=== PATIENT | female | born 1945 | race Caucasian/White ===

== ENCOUNTER 2016-04-19 09:30 | Inpatient (IN) | payer OTHER ==
[2016-04-16 10:30] VITALS: BMI 27.3
[~2016-04-19 09:30] MED LIST: BACITRACIN 30 GM TUBE TOPICAL OINTMENT TP ONE; BUPIVACAINE HCL/PF 0.5% (5MG/ML) 10 ML VIAL IJ ONE
--- NOTE | 2016-04-19 10:08 | HP ---
History & Physical Update - History History: No Change - Physical Physical: No Change - Assessment Assessment: No Change - Plan Plan: No Change (Seeing as this is the first time I have met the patient, I introduced myslef and informed the patient that I will be assisting Dr. Tyson during the procedure.)
[2016-04-19] MEDS ORDERED: BACITRACIN 30 GM TUBE TOPICAL OINTMENT ONE (10:42)
[2016-04-19] MEDS ORDERED: THROMBIN (BOVINE) 5,000 UNIT VIAL TP ONE ×2 (10:42→13:07)
[2016-04-19] MEDS ORDERED: MIDAZOLAM HCL 2 MG/2 ML SINGLE DOSE VIAL ONE (11:14)
[2016-04-19] MEDS ORDERED: PROPOFOL 20 ML ONE (11:21)
[2016-04-19] MEDS ORDERED: ROCURONIUM BROMIDE 50 MG/5 ML VIAL ONE (11:21)
[2016-04-19] MEDS ORDERED: ceFAZolin SODIUM 1 GM VIAL IVPB ONE (11:30)
[2016-04-19] MEDS ORDERED: ePHEDrine SULFATE 50 MG/1 ML AMPULE ONE (11:44)
[2016-04-19] MEDS ORDERED: ceFAZolin SODIUM 1 GM VIAL ONE (11:57)
[2016-04-19] MEDS ORDERED: ONDANSETRON 4 MG/2 ML VIAL ONE (11:57)
[2016-04-19] MEDS ORDERED: LIDOCAINE HCL/PF 2% SDV 5ML VIAL ONE (11:57)
[2016-04-19] MEDS ORDERED: LABETALOL HCL 5 MG/1 ML (100MG/20 ML VIAL) ONE (11:57)
[2016-04-19] MEDS ORDERED: DEXAMETHASONE SOD PHOSPHATE 4 MG/1 ML VIAL ONE (11:57)
[2016-04-19] MEDS ORDERED: BUPIVACAINE HCL/PF 0.5% (5MG/ML) 10 ML VIAL IJ ONE (13:07)
[2016-04-19] MEDS ORDERED: BACITRACIN 50,000 UNITS VIAL TP ONE (13:07)
[2016-04-19] MEDS ORDERED: BACITRACIN 30 GM TUBE TOPICAL OINTMENT TP ONE (13:30)
[2016-04-19] MEDS ORDERED: ONDANSETRON 4 MG/2 ML VIAL IVPB PRN (13:37)
[2016-04-19] MEDS ORDERED: BISACODYL 10 MG SUPP.RECT RC PRN (13:37)
[2016-04-19] MEDS ORDERED: ACETAMINOPHEN 325 MG TABLET (FP) PO PRN (13:37)
--- NOTE | 2016-04-19 13:37 | OP ---
Operative Note - Note: Operative Date: 04/19/16 Pre-Operative Diagnosis: spinal stenosis, radiculopathy Operation: B L4 and L5 laminectomies, partial B L3 and S1 laminectomies; medial fecetectomies L3-4, L4-5, L5-S1; foramenotomies L3-4, L4-5, L5-S1, microdissection, autologous bone graft harvest, posterolateral bone graft L4-5 Findings: Stenosis, sensitive roots B; L4-5 hypermobility Post-Operative Diagnosis: Same as Pre-op Surgeon: Michael Tyson Storage Consultant: Maco Garcia Anesthesiologist/OIL WELL SERVICE OPERATOR HELPER: Sil Covarrubias MD Anesthesia: General Specimens Removed: ligament and bone Estimated Blood Loss (mls): 25
[2016-04-19] MEDS ORDERED: D5-1/2NS+20 MEQ KCL - 1,000 ML IV SCH (13:45)
--- NOTE | 2016-04-19 14:01 | SURG ---
Surgery Machine Heddle Cleaner Note Machine Heddle Cleaner: Maco Garcia PA-C Date of Service: 04/19/16 Diagnosis: spinal stenosis, radiculopathy Procedure: Bilateral L4 & L5 laminectomies, partial bilateral L3 & S1 laminectomies; medial fecetectomies L3-4, L4-5, L5-S1; foramenotomies L3-4, L4-5, L5-S1, microdissection, autologous bone graft harvest, posterolateral bone graft L4-5 I was present for the entirety of the operative procedure. For further detail, please refer to operative report. Visit type - Case Type Case Type: Scheduled Admission - New patient This patient is new to me today: Yes Date on this admission: 04/19/16
[2016-04-19] MEDS ORDERED: HYDROmorphone *PCA* 10MG/50ML DISP.SYRIN PCA ONE ×2 (14:11→14:32)
--- NOTE | 2016-04-19 14:14 | PN ---
Progress Note (short form) - Note Progress Note: NEUROSURGERY In PACU AF, VSS, O2 sat 100% A/A/Ox3 Dressing intact Motor at least 4+ B LE Sensation- intact LT Labs pending Intra-op findings d/w patient's family All questions answered TOWER SUPERVISOR for pain
[2016-04-19] MEDS ORDERED: DEXAMETHASONE SOD PHOSPHATE 4 MG/1 ML VIAL IVPUSH PRN (14:16)
[2016-04-19] MEDS ORDERED: PROMETHAZINE HCL 25 MG/1 ML VIAL IVPB PRN (14:16)
[2016-04-19] MEDS ORDERED: LACTATED RINGERS SOLUTION 1,000 ML IV SCH (14:30)
[2016-04-19 14:47] LABS: MCHC 34.1 g/dl (32.0-36.0); MEAN CELL VOLUME 90.7 fl (80-96); MEAN PLT VOLUME 6.2 fl (7.5-11.1); PLATELET COUNT 194 K/MM3 (134-434); RDW 13.1 % (11.6-15.6); WHITE BLOOD COUNT 5.3 K/mm3 (4.0-10.0)
[2016-04-19 15:07] LABS: CALCIUM 8.9 mg/dL (8.5-10.1); CREATININE 0.9 mg/dL (0.55-1.02)
--- NOTE | 2016-04-19 17:06 | SPA.POSTOP ---
- POST-OP NOTE POD #0 No acute events since surgical procedure per RN notes. Patient transferred to floor without incident. Resting comfortably. States she is pain free. She has a RESIDENTIAL SUBSTANCE ABUSE COUNSELOR at bedside. Denies n/v/f/c, CP or SOB. Last Vital Signs Temp Pulse Resp BP Pulse Ox 98.3 F 66 16 143/62 100 04/19/16 13:56 04/19/16 16:10 04/19/16 16:10 04/19/16 16:10 04/19/16 16:10 PE General: No acute distress. Pulm: Clear to auscultation bilat anteriorly Cor: RRR Abd: Soft. Non-tender. No distention Back: Mild staining to superior pole of incision. No palpable hematoma. Neuro: Moving LE b/l. GMNI. LE: Soft, non-tender bilat. SCD's bilat. Problem List - Problems (1) Spinal stenosis Assessment/Plan: s/p B/l L4 & L5 lami, partial b/l L3 & S1 laminectomies; medial facetectomies L3 -4, L4-5, L5-S1; foramenotomies L3-4, L4-5, L5-S1, microdissection, autologous bone graft harvest, posterolateral bone graft L4-5 Doing well. Pain management via RESIDENTIAL SUBSTANCE ABUSE COUNSELOR Clear liquid diet OOB to chair in AM Code(s): M48.00 - SPINAL STENOSIS, SITE UNSPECIFIED (2) Lumbar radiculopathy, chronic Code(s): M54.16 - RADICULOPATHY, LUMBAR REGION Visit type - Case Type Case Type: Scheduled Admission - New patient This patient is new to me today: Yes Date on this admission: 04/19/16
[2016-04-19] MEDS: D5-1/2NS+20 MEQ KCL - 1,000 ML IV SCH (17:57)
[2016-04-19] MEDS: diazePAM 5 MG TABLET PO SCH ×2 (17:58→21:59)
[2016-04-19] MEDS: DOCUSATE SODIUM 100 MG CAPSULE (FP) PO SCH ×2 (17:58→21:59)
[2016-04-19] MEDS: HYDROmorphone *PCA* 10MG/50ML DISP.SYRIN PCA SCH (18:19)
[2016-04-19] MEDS: CEFAZOLIN 1 GM/D5W 50 ML IVPB SCH (19:00)
[2016-04-19] MEDS ORDERED: CARVEDILOL 6.25 MG TABLET (FP) PO ONE (19:45)
[2016-04-19] MEDS ORDERED: LOSARTAN POTASSIUM 50 MG TABLET (FP) PO ONE (19:45)
[2016-04-19] MEDS: ATORVASTATIN CA 40 MG TABLET (FP) PO SCH (21:59)
[2016-04-19] MEDS ORDERED: PATIENT'S OWN MEDICATION (NON-FORMULARY) (Icosapent Ethyl [Vascepa] 1 GM) PO SCH (22:00)
[2016-04-19] MEDS: CARVEDILOL 6.25 MG TABLET (FP) PO SCH (22:00)
[2016-04-19] MEDS: LOSARTAN POTASSIUM 50 MG TABLET (FP) PO SCH (22:00)
[2016-04-20] MEDS: CEFAZOLIN 1 GM/D5W 50 ML IVPB SCH ×2 (01:58→10:32)
[2016-04-20] MEDS: D5-1/2NS+20 MEQ KCL - 1,000 ML IV SCH ×2 (02:59→15:07)
[2016-04-20] MEDS: DOCUSATE SODIUM 100 MG CAPSULE (FP) PO SCH ×3 (05:56→22:42)
[2016-04-20] MEDS: diazePAM 5 MG TABLET PO SCH ×3 (05:56→22:43)
--- NOTE | 2016-04-20 07:54 | PN ---
Progress Note (short form) - Note Progress Note: NEUROSURGERY POD#1 AF, VSS BP higher last night; normalized after given PM doses of regular BP emds A/A/Ox3 Dressing with some serosangrenous drainage - changed Motor at least 4+ B LE Sensation- intact LT Labs OK Intra-op findings d/w patient All questions answered Cont TRAFFIC WORKER for pain Observe wound Complete IV abx Rehab
[2016-04-20] MEDS: CARVEDILOL 6.25 MG TABLET (FP) PO SCH ×2 (10:32→22:42)
--- NOTE | 2016-04-20 11:06 | OP ---
DATE OF OPERATION: 04/19/2016 PREOPERATIVE DIAGNOSES: 1. Lumbar spinal stenosis L3-L4 greater than L4-L5. 2. Lower back pain, bilateral lumbar radiculopathy. 3. L4-L5 disc herniation with mild segmental instability. POSTOPERATIVE DIAGNOSES: 1. Lumbar spinal stenosis L3-L4 greater than L4-L5. 2. Lower back pain, bilateral lumbar radiculopathy. 3. L4-L5 disc herniation with mild segmental instability. ATTENDING SURGEON: Michael Tyson MD TANK CALIBRATOR: ROM Garza ANESTHESIA: General endotracheal. ANESTHESIOLOGIST: Sil Covarrubias MD ESTIMATED BLOOD LOSS: 25 mL. PROCEDURES: 1. Bilateral L4 and L5 laminectomies and partial bilateral L3 and S1 laminectomies for spinal canal and lateral recessed decompression including decompression of the thecal sac, bilateral L3, L4, L5, and S1 nerve roots (69639, [id number], [id number], and [id number]). 2. Evergreen autologous lamina and spinous process bone and processing with bone mill (52403). 3. Posterolateral fusion at L4-L5 with autologous morselized bone graft and bone dust (50424). 4. Microsurgical dissection with operating microscope and microsurgical techniques ([id number]). INDICATIONS: The patient is a 71-year-old female with intractable lower back pain, bilateral lumbar radiculopathy. Because of the continued intractable symptoms and failure of conservative treatment, she is consented for lumbar decompression. She has marked stenosis at L4-L5, mild stenosis at L3-L4 and L5-S1. The risks of the procedure include, but are not limited to, bleeding, infection, dural tear with CSF leak, neurological injury, increased thromboembolic risks, and other risks of general anesthesia. The patient understands the indications for procedure, the procedure in detail, risks and benefits, and alternatives for treatment of her lumbar condition, and wished to proceed. No guarantees were given for a favorable outcome. PROCEDURE IN DETAIL: After the patient was taken to the operating room, she was placed in supine position. After general anesthesia was induced and appropriate monitoring lines were placed, she was turned into a prone position on a Edy frame. She has palpable pulses at both dorsalis pedis. All pressure points were checked and padded, and neck was placed in sliding flexed position. Posterior lumbar region was cleaned with alcohol and prepped with Betadine, and localization was obtained with the spinal needle in place. After position was verified, an approximately 3.5-inch incision was made from the midline from L3 to L5. Subperiosteal dissection was carried out bilaterally with periosteal elevator and monopolar electrocautery. Two self-retaining retractors were inserted. At this point, another localizing x-ray was obtained with the clamp at the bottom at the L4-L5 interspinous space even prior to any bone removal and ligament removal, the patient was found to be hypermobile at the L4-L5 level. After position was verified, supraspinous interspinal ligament was removed at L3-L4, L4-L5, and L5-S1. The spinous process at L4 and L5 as well as partial at L3 were removed with a Leksell rongeur. Laminectomy was also carried out with Leksell rongeur, and bone was morselized with a bone mill. Complete laminectomy at L4 and L5 was carried out bilaterally and partially at bilateral L3 and S1 to decompress the thecal sac. There was significant pressure at L4-L5 because of the segmental hypomobility as well as extremely thickened ligamentum flavum. This was dissected free with the angled curette and resected with the Kerrison rongeur. This portion of the procedure was performed with the use of the operating microscope for both illumination and magnification. Microsurgical techniques were utilizing. Medial facetectomy was carried out to decompress the lateral recess thoroughly at L3-L4, L4-L5, and L5-S1. Foraminotomy was also carried out with angled curette and Kerrison rongeur bilaterally to decompress L3, L4, L5, and S1 nerve roots. The dura was moist and there was antibiotic irrigation, which was given intermittently throughout the procedure. After decompression was completed, the thecal sac was pulsating nicely with CSF pulsation. Wounds were irrigated with copious amounts of antibiotic interrogation. Surgicel was layered over the epidural space as an adhesion barrier. Posterolateral surface of the spine at L4 and L5 was decorticated with high-speed pneumatic drill and pack was previously harvested with autologous lamina and spinous process bone graft and bone dust. At this point, 10 mL of 0.5% Marcaine was injected into the paraspinal muscles bilaterally. Adequate hemostasis was obtained with bipolar electrocautery. Dorsal lumbar musculature was approximated with 0 Vicryl suture, and dorsal lumbar fascia was closed with 0 Vicryl sutures. The subcutaneous fascia was closed with 3-0 Vicryl suture, and skin was closed with 4-0 Vicryl running subcuticular sutures. Steri-Strips and sterile occlusive dressing were applied. The patient tolerated the procedure well and was turned back to the supine position, moving bilateral lower extremities well. The Valsalva maneuver was performed prior to the closure, and there was no CSF leak. The OR time-out procedure was followed. All needle and lap counts were correct. The patient received 1 dose of 1 g of Ancef prior to the incision. The family was updated as to the intraoperative findings, and the patient was examined in the recovery room with a stable neurological examination. Matthieu PIÑA/[id number]
--- NOTE | 2016-04-20 13:32 | PN ---
Progress Note (short form) - Note Progress Note: Anesthesia postop note 71 y/o F, s/p GA for lumbar laminectomy, dilaudid HAND GLASS CUTTER for pain management POD#1, vss, aaox3, pain well controlled with HAND GLASS CUTTER. Will continue HAND GLASS CUTTER until tomorrow. No anesthesia complications.
[2016-04-20] MEDS ORDERED: MAGNESIUM HYDROX 2400MG/30ML ORAL SUSPENSION 30 ML CUP PO PRN (15:20)
--- NOTE | 2016-04-20 15:20 | HP ---
Admitting History and Physical - Primary Care Physician PCP: Claudio Pat - Admission Chief Complaint: S/P L3/L4 LAMINECTOMY POD #1 History of Present Illness: INTRACTABLE BACK PAIN WITH NEUROPATHY DOWN BOTH LEGS, HERE FOR LAMINECTOMY L3 AND L4. HISTORY HYPERTENSION, LIPIDEMIA, BORDERLINE DIABETES History Source: Patient - Past Medical History Cardiovascular: Yes: HTN ...: No - Smoking History Smoking history: Never smoked - Alcohol/Substance Use Hx Alcohol Use: No Home Medications - Allergies Allergies/Adverse Reactions: Allergies Allergy/AdvReac Type Severity Reaction Status Date / Time No Known Allergies Allergy Verified 04/16/16 10:35 - Home Medications Home Medications: Ambulatory Orders Aspirin [Lo-Dose Aspirin EC] 81 mg PO DAILY 04/16/16 Losartan Potassium 50 mg PO HS 04/16/16 Atorvastatin Ca [Lipitor] 40 mg PO HS 04/19/16 Carvedilol [Coreg -] 6.25 mg PO BID 04/19/16 Cholecalciferol (Vitamin D3) [Vitamin D3] 2,000 unit PO DAILY 04/19/16 Icosapent Ethyl [Vascepa] 1 gm PO BID 04/19/16 Review of Systems - Review of Systems Constitutional: reports: Weakness Eyes: reports: No Symptoms HENT: reports: No Symptoms Neck: reports: No Symptoms Cardiovascular: reports: No Symptoms Respiratory: reports: No Symptoms Gastrointestinal: reports: No Symptoms Genitourinary: reports: No Symptoms Breasts: reports: No Symptoms Reported Musculoskeletal: reports: Back Pain, Muscle Weakness Integumentary: reports: No Symptoms Neurological: reports: Pre-Existing Deficit Endocrine: reports: No Symptoms Hematology/Lymphatic: reports: No Symptoms Physical Examination Vital Signs: Vital Signs Temperature 99.0 F 04/20/16 09:00 Pulse Rate 83 04/20/16 09:00 Respiratory Rate 20 04/20/16 09:00 Blood Pressure 116/47 04/20/16 09:00 O2 Sat by Pulse Oximetry (%) 95 04/20/16 09:00 Findings/Remarks: PATIENT WAS ABLE TO HAVE PHYSICAL THERAPY TODAY, OOB TO CHAIR Constitutional: Yes: Mild Distress Eyes: Yes: WNL HENT: Yes: WNL Neck: Yes: WNL Cardiovascular: Yes: WNL Respiratory: Yes: WNL Gastrointestinal: Yes: WNL Renal/: Yes: WNL Musculoskeletal: Yes: Back Pain Extremities: Yes: WNL Edema: No Peripheral Pulses WNL: Yes Integumentary: Yes: WNL Wound/Incision: Yes: Clean/Dry Neurological: Yes: Other ...Motor Strength: LLE, RLE Psychiatric: Yes: WNL Labs: CBC, BMP 04/19/16 14:20 04/19/16 14:20 Problem List - Problems (1) Lumbar radiculopathy, chronic Code(s): M54.16 - RADICULOPATHY, LUMBAR REGION (2) Spinal stenosis Code(s): M48.00 - SPINAL STENOSIS, SITE UNSPECIFIED (3) Hypertension Code(s): I10 - ESSENTIAL (PRIMARY) HYPERTENSION (4) Lipidemia Code(s): E78.5 - HYPERLIPIDEMIA, UNSPECIFIED Assessment/Plan POD #1 INCENTIVE SPIROMETRY OOB TO CHAIR MONITOR LABS AND VITAL SIGNS STOOL SOFTENERS PRN [facility]
[2016-04-20] MEDS: HYDROmorphone *PCA* 10MG/50ML DISP.SYRIN PCA SCH (15:21)
[2016-04-20] MEDS: LOSARTAN POTASSIUM 50 MG TABLET (FP) PO SCH (22:43)
[2016-04-20] MEDS: ATORVASTATIN CA 40 MG TABLET (FP) PO SCH (22:43)
[2016-04-21] MEDS: DOCUSATE SODIUM 100 MG CAPSULE (FP) PO SCH ×3 (06:23→22:37)
[2016-04-21] MEDS: diazePAM 5 MG TABLET PO SCH ×3 (06:23→22:39)
--- NOTE | 2016-04-21 08:50 | PN ---
Progress Note, Physician Chief Complaint: AWAKE ALERT EATING BREAKFAST MILD DISTRESS WITH PAIN NO BM SINCE ADMITTED - Current Medication List Current Medications: Active Medications Acetaminophen (Tylenol -) 650 mg PO Q6H PRN PRN Reason: FEVER Atorvastatin Calcium (Lipitor -) 40 mg PO [facility] Last Admin: 04/20/16 22:43 Dose: 40 mg Bisacodyl (Dulcolax Suppository -) 10 mg RC DAILY PRN PRN Reason: CONSTIPATION Carvedilol (Coreg -) 6.25 mg PO BID [facility] Last Admin: 04/20/16 22:42 Dose: 6.25 mg Diazepam (Valium -) 5 mg PO Q8H [facility] Last Admin: 04/21/16 06:23 Dose: 5 mg Docusate Sodium (Colace -) 100 mg PO TID [facility] Last Admin: 04/21/16 06:23 Dose: 100 mg Hydromorphone HCl (Dilaudid Data Storage Specialist -) 10 mg DENTAL LAB TECHNICIAN DENTAL LAB TECHNICIAN [facility] PRN Reason: Protocol Stop: 04/26/16 14:17 Last Admin: 04/20/16 15:21 Dose: Not Given Potassium Chloride/Dextrose/Sod Cl (D5-1/2ns+20 Meq Kcl -) 1,000 mls @ 42 mls/ hr IV ASDIR [facility] Losartan Potassium (Cozaar -) 50 mg PO [facility] Last Admin: 04/20/16 22:43 Dose: 50 mg Magnesium Hydroxide (Milk Of Magnesia -) 30 ml PO DAILY PRN PRN Reason: CONSTIPATION Non-Formulary Medication (Icosapent Ethyl [Vascepa]) 1 gm PO BID [facility] Ondansetron HCl (Zofran Injection) 4 mg IVPB Q6H PRN PRN Reason: NAUSEA AND/OR VOMITING Promethazine HCl (Phenergan Injection -) 12.5 mg IVPB Q6H PRN PRN Reason: NAUSEA AND/OR VOMITING - Objective Vital Signs: Vital Signs Temperature 98.1 F 04/21/16 06:39 Pulse Rate 87 04/21/16 06:12 Respiratory Rate 20 04/21/16 06:12 Blood Pressure 153/72 04/21/16 06:12 O2 Sat by Pulse Oximetry (%) 96 04/20/16 21:00 Constitutional: Yes: Mild Distress Eyes: Yes: WNL HENT: Yes: WNL Neck: Yes: WNL Cardiovascular: Yes: WNL Respiratory: Yes: WNL Gastrointestinal: Yes: WNL Genitourinary: Yes: WNL Musculoskeletal: Yes: Back Pain, Muscle Weakness Extremities: Yes: Other Edema: No Peripheral Pulses WNL: Yes Integumentary: Yes: WNL Wound/Incision: Yes: Clean/Dry Neurological: Yes: Unsteady Gait ...Motor Strength: LLE, RLE Psychiatric: Yes: WNL Labs: CBC, BMP 04/19/16 14:20 04/19/16 14:20 Problem List - Problems (1) Lumbar radiculopathy, chronic Code(s): M54.16 - RADICULOPATHY, LUMBAR REGION (2) Spinal stenosis Code(s): M48.00 - SPINAL STENOSIS, SITE UNSPECIFIED (3) Hypertension Code(s): I10 - ESSENTIAL (PRIMARY) HYPERTENSION (4) Lipidemia Code(s): E78.5 - HYPERLIPIDEMIA, UNSPECIFIED Assessment/Plan POD #2 INCENTIVE SPIROMETRY OOB TO CHAIR MONITOR LABS AND VITAL SIGNS STOOL SOFTENERS PRN [facility]
[2016-04-21] MEDS: CARVEDILOL 6.25 MG TABLET (FP) PO SCH ×2 (09:48→22:37)
--- NOTE | 2016-04-21 10:11 | PN ---
Progress Note (short form) - Note Progress Note: NEUROSURGERY POD#2 Tmax 100, now 98.1, VSS Feels better today No sciatica Incisional pain only Appreciate Dr Pat's input A/A/Ox3 Dressing with minimal drainage Motor at least 4+ B LE Sensation- intact LT Intra-op findings d/w patient All questions answered D/c DIRECTOR REGULATORY AGENCY - po meds Observe wound F/U CBC Rehab
[2016-04-21] MEDS ORDERED: TAPENTADOL HYDROCHLORIDE 50 MG TABLET PO PRN (10:52)
[2016-04-21 11:37] LABS: BASOPHIL 0.3 % (0-2.0); EOSINOPHIL 0.1 % (0-4.5); MCH 31.9 pg (25.7-33.7); MCHC 34.8 g/dl (32.0-36.0); MEAN CELL VOLUME 91.7 fl (80-96); NEUTROPHILS 75.5 % (42.8-82.8); PLATELET COUNT 168 K/MM3 (134-434); RDW 13.5 % (11.6-15.6); WHITE BLOOD COUNT 9.6 K/mm3 (4.0-10.0)
--- NOTE | 2016-04-21 13:52 | PN ---
Progress Note (short form) - Note Progress Note: Anesthesia/Pain Pt seen and examined S:awake Comfortable O: Vital Signs Temperature 98.1 F 04/21/16 09:00 Pulse Rate 83 04/21/16 09:00 Respiratory Rate 17 04/21/16 09:00 Blood Pressure 145/62 04/21/16 09:00 O2 Sat by Pulse Oximetry (%) 97 04/21/16 09:45 CBC, BMP 04/21/16 11:08 04/19/16 14:20 A/P: Current Active Problems Hypertension (Acute) Lipidemia (Acute) Lumbar radiculopathy, chronic (Acute) Spinal stenosis (Acute) s/p laminectomy Doing well post op FLOAT BUILDER stopped PO pain med as needed Continue current care Keven Hernandez MD
[2016-04-21] MEDS: LOSARTAN POTASSIUM 50 MG TABLET (FP) PO SCH (22:37)
[2016-04-21] MEDS: ATORVASTATIN CA 40 MG TABLET (FP) PO SCH (22:37)
[2016-04-22] MEDS: DOCUSATE SODIUM 100 MG CAPSULE (FP) PO SCH ×3 (06:44→21:15)
[2016-04-22] MEDS: diazePAM 5 MG TABLET PO SCH ×3 (06:44→21:15)
--- NOTE | 2016-04-22 07:43 | PN ---
Progress Note (short form) - Note Progress Note: NEUROSURGERY POD#3 AF, VSS Feels better today No sciatica Incisional pain only A/A/Ox3 Dressing with no drainage Motor at least 4+ B LE Sensation- intact LT Intra-op findings d/w patient All questions answered On po meds - Nucynta prn Observe wound Rehab
[2016-04-22] MEDS: CARVEDILOL 6.25 MG TABLET (FP) PO SCH ×2 (10:05→21:15)
--- NOTE | 2016-04-22 14:59 | DS ---
Physical Examination Vital Signs: Vital Signs Temperature 98.2 F 04/22/16 14:00 Pulse Rate 87 04/22/16 14:00 Respiratory Rate 18 04/22/16 14:00 Blood Pressure 122/51 04/22/16 14:00 O2 Sat by Pulse Oximetry (%) 97 04/21/16 21:00 Constitutional: Yes: No Distress Eyes: Yes: WNL HENT: Yes: WNL Neck: Yes: WNL Cardiovascular: Yes: WNL Respiratory: Yes: WNL Gastrointestinal: Yes: WNL Renal/: Yes: WNL Musculoskeletal: Yes: Back Pain, Muscle Weakness Edema: No Peripheral Pulses WNL: Yes Integumentary: Yes: WNL Wound/Incision: Yes: Clean/Dry Neurological: Yes: WNL ...Motor Strength: WNL Psychiatric: Yes: WNL Labs: CBC, BMP 04/21/16 11:08 04/19/16 14:20 Discharge Summary Reason For Visit: LUMBAR STENOSIS, INTERVER DISC DEGENERATION Current Active Problems Hypertension (Acute) Lipidemia (Acute) Lumbar radiculopathy, chronic (Acute) Spinal stenosis (Acute) Procedures: Principal: laminectomy lumbar Other Procedures: xrays/labs Hospital Course: admitted for intractable back and leg pain with neuropathy with weakness. laminectomy performed will send to snf for rehab Condition: Good - Instructions Diet, Activity, Other Instructions: Post-op Lumbar Decompression Diet: Regular Activity: May shower but keep incision line dry. Change dressing afterwards Restrictions: Do not lift anything over 10lbs. Light activity only Additional Instructions: Keep incision line clean and dry. Change dressing daily. Report any chills, fever (100 or greater), any wound drainage, or any neurological changes to Dr. Tyson. Do not drive for two weeks. Initial post-op visit: Call Dr Tyson's office [phone] to be seen in about 1 week after discharge from rehab Disposition: [facility] - Home Medications Comprehensive Discharge Medication List: Ambulatory Orders Aspirin [Lo-Dose Aspirin EC] 81 mg PO DAILY 04/16/16 Losartan Potassium 50 mg PO HS 04/16/16 Atorvastatin Ca [Lipitor] 40 mg PO HS 04/19/16 Carvedilol [Coreg -] 6.25 mg PO BID 04/19/16 Cholecalciferol (Vitamin D3) [Vitamin D3] 2,000 unit PO DAILY 04/19/16 Icosapent Ethyl [Vascepa] 1 gm PO BID 04/19/16
[2016-04-22] MEDS: LOSARTAN POTASSIUM 50 MG TABLET (FP) PO SCH (21:15)
[2016-04-22] MEDS: ATORVASTATIN CA 40 MG TABLET (FP) PO SCH (21:15)
[2016-04-23] MEDS: DOCUSATE SODIUM 100 MG CAPSULE (FP) PO SCH (05:33)
[2016-04-23] MEDS: diazePAM 5 MG TABLET PO SCH (05:33)
--- NOTE | 2016-04-23 07:48 | PN ---
Progress Note (short form) - Note Progress Note: NEUROSURGERY POD#4 Tmax 99.4 now 98.5, AF, VSS Feels better Tolerating diet No sciatica Incisional pain only A/A/Ox3 Dressing with no drainage Mild redness posterior chest/lower back with mild itchiness (?moisture vs abx sensitivity) No sign of infection otherwise Motor at least 4+-5/5 B LE Sensation- intact LT All questions answered On po meds - Nucynta prn Observe wound Rehab
--- NOTE | 2016-04-23 09:24 | PN ---
Progress Note (short form) - Note Progress Note: CHART REVIEWED, PAPER WORK COMPLETED PATIENT EXAMINED, DC TO [facility] Problem List - Problems (1) Lumbar radiculopathy, chronic Code(s): M54.16 - RADICULOPATHY, LUMBAR REGION (2) Spinal stenosis Code(s): M48.00 - SPINAL STENOSIS, SITE UNSPECIFIED (3) Hypertension Code(s): I10 - ESSENTIAL (PRIMARY) HYPERTENSION (4) Lipidemia Code(s): E78.5 - HYPERLIPIDEMIA, UNSPECIFIED
[2016-04-23] MEDS: CARVEDILOL 6.25 MG TABLET (FP) PO SCH (11:18)
[2016-04-23 13:06] VITALS: BP 143/52; PULSE 80; TEMP 98
== END 2016-04-23 11:56 | DRG 460 ==
LOC: JASUSAT 09:30 → UNDOADMIN 09:30 → JSAMEDAYSX 09:30 → EDSTATUS 11:00 → JSAMEDAYSX 13:37 → J8W 17:29
PROVIDERS: ADMIT Neurological Surgery; ATTEND Neurological Surgery
PROC: 01NB0ZZ Release Lumbar Nerve, Open Approach (ICD-10-PCS; 2016-04-19)
PROC: 0SG0071 Fusion of Lumbar Vertebral Joint with Autologous Tissue Substitute, Posterior Approach, Posterior Column, Open Approach (ICD-10-PCS; principal; 2016-04-19 11:00)
DX: M51.16 Intervertebral disc disorders with radiculopathy, lumbar region (principal); M48.06 Spinal stenosis, lumbar region; I10 Essential (primary) hypertension; E78.5 Hyperlipidemia, unspecified; G62.9 Polyneuropathy, unspecified; K59.00 Constipation, unspecified
CPT/HCPCS: 36415; 72100-TC; 80048; 85025; 85027; 86850; 86900; 86901; 94760; 97116-GP; 97161-GP

== ENCOUNTER 2016-06-09 16:46 | Inpatient (IN) | payer OTHER ==
--- NOTE | 2016-06-09 17:34 | PDOC ---
History of Present Illness - General History Source: Patient Exam Limitations: No Limitations - History of Present Illness Initial Comments: 06/09/16 17:35 The patient is a 71-year-old woman, accompanied by family, with a significant past medical history of hypertension, hypercholesterolemia, borderline diabetes , chronic lumbar radiculopathy status post recent laminectomy of L3-L4, performed by Neurosurgeon, Dr. Michael Tyson who presents to the emergency department for further evaluation of altered mental status.As per patient's family, the patient was recently at [facility] for rehabilitation of her recent procedure. As per patient's family, at baseline, the patient is typically talkative. However, the patient has a known urinary tract infection and was noted to have an altered mental state, as she is not much verbal. No fever, chills, cough, shortness of breath, abdominal pain, nausea, vomiting. <Niyah Ling - Last Filed: 06/09/16 18:37> <Maria E Jacob - Last Filed: 06/09/16 23:12> - General Chief Complaint: Urinary Problem Stated Complaint: PCP SENT/URINARY PROBLEM Time Seen by Provider: 06/09/16 17:16 Past History <Niyah Ling - Last Filed: 06/09/16 18:37> - Past Medical History Anemia: No Asthma: No Cancer: No Cardiac Disorders: No CVA: No COPD: No CHF: No Dementia: No Diabetes: Yes ("BORDERLINE, NO MEDICATIONS.") GI Disorders: No Disorders: No HTN: Yes Hypercholesterolemia: Yes Liver Disease: No Seizures: No Thyroid Disease: No - Psycho/Social/Smoking Cessation Hx Anxiety: No Suicidal Ideation: No Smoking History: Never smoked Hx Alcohol Use: No Drug/Substance Use Hx: No Substance Use Type: None Hx Substance Use Treatment: No <Maria E Jacob - Last Filed: 06/09/16 23:12> - Past Medical History Allergies/Adverse Reactions: Allergies Allergy/AdvReac Type Severity Reaction Status Date / Time No Known Allergies Allergy Verified 06/09/16 16:54 Home Medications: Ambulatory Orders Aspirin [Lo-Dose Aspirin EC] 81 mg PO DAILY 04/16/16 Losartan Potassium 50 mg PO HS 04/16/16 Atorvastatin Ca [Lipitor] 40 mg PO HS 04/19/16 Carvedilol [Coreg -] 6.25 mg PO BID 04/19/16 Cholecalciferol (Vitamin D3) [Vitamin D3] 2,000 unit PO DAILY 04/19/16 Review of Systems - Review of Systems Able to Perform ROS?: No <Niyah Ling - Last Filed: 06/09/16 18:37> *Physical Exam - Vital Signs Last Vital Signs Temp Pulse Resp BP Pulse Ox 97.8 F 85 20 151/74 97 06/09/16 16:50 06/09/16 16:50 06/09/16 16:50 06/09/16 16:50 06/09/16 16:50 - Physical Exam Comments: 06/09/16 17:36 GENERAL: Awake, alert. Confused. Answers most questions. HEAD: No signs of trauma EYES: PERRLA, EOMI, sclera anicteric, conjunctiva clear ENT: Auricles normal inspection, hearing grossly normal, nares patent, oropharynx clear without exudates. Moist mucosa NECK: Normal ROM, supple, no lymphadenopathy, JVD, or masses LUNGS: Breath sounds equal, clear to auscultation bilaterally. No wheezes, and no crackles HEART: Regular rate and rhythm, normal S1 and S2, no murmurs, rubs or gallops ABDOMEN: Soft, mild bladder distention. Normoactive bowel sounds. No rebound. No masses EXTREMITIES: Normal range of motion, no edema. No clubbing or cyanosis. No cords, erythema, or tenderness NEUROLOGICAL: Limited by altered mental status. <Niyah Ling - Last Filed: 06/09/16 18:37> - Vital Signs Last Vital Signs Temp Pulse Resp BP Pulse Ox 97.8 F 85 20 151/74 97 06/09/16 16:50 06/09/16 16:50 06/09/16 16:50 06/09/16 16:50 06/09/16 16:50 <Maria E Jacob - Last Filed: 06/09/16 23:12> ED Treatment Course - LABORATORY CBC & Chemistry Diagram: 06/09/16 17:45 06/09/16 17:45 <Niyah Ling - Last Filed: 06/09/16 18:37> - LABORATORY CBC & Chemistry Diagram: 06/09/16 17:45 06/09/16 17:45 <Maria E Jacob - Last Filed: 06/09/16 23:12> Medical Decision Making - Medical Decision Making 06/09/16 17:[address] Claudio Pat. 06/09/16 17:[address] Claudio Pat. <Niyah Ling - Last Filed: 06/09/16 18:37> - Medical Decision Making Case d/w Dr. Pat. Patient was being treated with cipro for UTI at rehab. She was signed out AMA by family earlier today because they were not satisfied with the facility overall, however, they stated that she was unsafe to go home, as she lives alone, and is extremely confused. She is clearly altered in the ED- possibly due to a UTI with resistant organism, possibly delirium due to change in environment (). Unclear. CTH, CXR, and labs in ED without any significant finding to explain the AMS. At this point, she is barely answering questions in the ED, appears paranoid and altered (not her baseline per family) . She is not a safe discharge home, and will need further evaluation to determine the reason for her AMS. <Maria E Jacob - Last Filed: 06/09/16 23:12> *DC/Admit/Observation/Transfer - Attestations Scribe Attestion: 06/09/16 17:37 Documentation prepared by Niyah Ling, acting as medical staff assistant for Maria E Jacob MD. <Niyah Ling - Last Filed: 06/09/16 18:37> - Discharge Dispostion Admit: Yes <Maria E Jacob - Last Filed: 06/09/16 23:12> Diagnosis at time of Disposition: Altered mental status Qualifiers: Altered mental status type: unspecified Qualified Code(s): R41.82 - Altered mental status, unspecified - Discharge Dispostion Condition at time of disposition: Stable
[2016-06-09 18:10] LABS: BASOPHIL 0.9 % (0-2.0); EOSINOPHIL 1.6 % (0-4.5); MCH 31.3 pg (25.7-33.7); MCHC 34.4 g/dl (32.0-36.0); MEAN CELL VOLUME 91.2 fl (80-96); MEAN PLT VOLUME 7.1 fl (7.5-11.1); NEUTROPHILS 60.6 % (42.8-82.8); PLATELET COUNT 249 K/MM3 (134-434); RDW 13.7 % (11.6-15.6); WHITE BLOOD COUNT 8.2 K/mm3 (4.0-10.0)
[2016-06-09 18:21] LABS: URINE APPEARANCE CLEAR; URINE BILIRUBIN NEGATIVE (NEGATIVE); URINE BLOOD NEGATIVE (NEGATIVE); URINE COLOR LTYELLOW; URINE GLUCOSE (UA) 1+ (NEGATIVE); URINE KETONE NEGATIVE (NEGATIVE); URINE LEUK ESTERASE NEGATIVE (NEGATIVE); URINE NITRITE NEGATIVE (NEGATIVE); URINE PROTEIN NEGATIVE (NEGATIVE); URINE UROBILINOGEN NEGATIVE E.U./dl (0.2-1.0)
[2016-06-09 18:33] LABS: ALBUMIN 3.8 g/dl (3.4-5.0); ALK PHOS 34 U/L (45-117); ANION GAP 11 (8-16); BILIRUBIN,TOTAL 1.2 mg/dL (0.2-1.0); CALCIUM 9.5 mg/dL (8.5-10.1); CO2 29 mmol/L (21-32); CREATININE 0.9 mg/dL (0.55-1.02); GLUCOSE,RANDOM 229 mg/dL (74-106); SGOT/AST 14 U/L (15-37); SGPT/ALT 22 U/L (12-78); TOT PROT 7.5 g/dl (6.4-8.2)
[2016-06-09] MEDS ORDERED: ACETAMINOPHEN 325 MG TABLET (FP) PO PRN (20:42)
[2016-06-09 21:33] LABS: ARTERIAL BLD GAS O2 SATURATION 97.8 % (90-98.9); ARTERIAL BLOOD GAS BASE EXCESS 1.9 meq/l (-2-2); ARTERIAL BLOOD GAS HCO3 25.6 meq/L (22-26); ARTERIAL BLOOD GAS pH 7.44 (7.35-7.45)
[2016-06-09 21:34] LABS: ALLENS TEST POSITIVE; ART PUNCT SITE RIGHT BRACHIAL; LPM/O2% 21%; PT. ON O2? NO; TYPE OF O2 ROOM AIR
[2016-06-09 21:35] LABS: ARTERIAL BLOOD GAS PO2 90.3 mmHg (70-100)
[2016-06-09] MEDS ORDERED: INSULIN SLIDING SCALE (NOVOLOG) 1 VIAL SQ SCH (22:00)
[2016-06-09] MEDS: CARVEDILOL 6.25 MG TABLET (FP) PO SCH (22:07)
[2016-06-09] MEDS: LOSARTAN POTASSIUM 50 MG TABLET (FP) PO SCH (22:07)
[2016-06-09] MEDS: SODIUM CHLORIDE 0.45%/POT 1,000 ML IV SCH (22:07)
[2016-06-09] MEDS: ATORVASTATIN CA 40 MG TABLET (FP) PO SCH (22:07)
[2016-06-09] MEDS: HEPARIN NA (PORCINE) 5,000 UNITS/ML 1ML VIAL SQ SCH (22:08)
[2016-06-10 02:41] VITALS: BMI 26.6
[2016-06-10] MEDS: CARVEDILOL 6.25 MG TABLET (FP) PO SCH ×2 (09:49→22:06)
[2016-06-10] MEDS: ASPIRIN COATED 81 MG TABLET.EC PO SCH (09:49)
[2016-06-10] MEDS: HEPARIN NA (PORCINE) 5,000 UNITS/ML 1ML VIAL SQ SCH ×2 (09:51→22:07)
[2016-06-10 10:28] LABS: BASOPHIL 1.1 % (0-2.0); MCH 31.1 pg (25.7-33.7); MCHC 33.9 g/dl (32.0-36.0); MEAN PLT VOLUME 6.8 fl (7.5-11.1); NEUTROPHILS 61.1 % (42.8-82.8); PLATELET COUNT 201 K/MM3 (134-434); RDW 13.7 % (11.6-15.6); WHITE BLOOD COUNT 6.2 K/mm3 (4.0-10.0)
[2016-06-10 11:02] LABS: ALBUMIN 3.7 g/dl (3.4-5.0); ANION GAP 10 (8-16); CALCIUM 9.1 mg/dL (8.5-10.1); CO2 29 mmol/L (21-32); CREATININE 0.8 mg/dL (0.55-1.02); GLUCOSE,RANDOM 221 mg/dL (74-106); SGOT/AST 12 U/L (15-37); SGPT/ALT 21 U/L (12-78)
[2016-06-10 11:05] LABS: ALK PHOS 28 U/L (45-117); BILIRUBIN,TOTAL 1.9 mg/dL (0.2-1.0); TOT PROT 7.2 g/dl (6.4-8.2)
[2016-06-10 12:05] LABS: CHOLESTEROL 149 mg/dL (50-200); LDL CHOLESTEROL (ONLY SJRH) 70 mg/dL (5-100)
--- NOTE | 2016-06-10 12:17 | EKG ---
Test Reason : Blood Pressure : / mmHG Vent. Rate : 084 BPM Atrial Rate : 084 BPM P-R Int : 120 ms QRS Dur : 082 ms QT Int : 384 ms P-R-T Axes : 040 -03 002 degrees QTc Int : 453 ms NORMAL SINUS RHYTHM INFERIOR INFARCT , AGE UNDETERMINED ABNORMAL ECG WHEN COMPARED WITH ECG OF 09-JUN-2016 17:41, NO SIGNIFICANT CHANGE WAS FOUND Confirmed by JOSUÉ SAHA MD ([id number]) on 06/10/2016 12:17:19 PM Referred By: FREDDIE VICENTE Confirmed By:JOSUÉ SAHA MD
--- NOTE | 2016-06-10 12:22 | EKG ---
Test Reason : Blood Pressure : / mmHG Vent. Rate : 087 BPM Atrial Rate : 087 BPM P-R Int : 126 ms QRS Dur : 082 ms QT Int : 384 ms P-R-T Axes : 018 000 025 degrees QTc Int : 462 ms NORMAL SINUS RHYTHM NORMAL ECG NO PREVIOUS ECGS AVAILABLE Confirmed by JOSUÉ SAHA MD ([id number]) on 06/10/2016 12:21:40 PM Referred By: Confirmed By:JOSUÉ SAHA MD
[2016-06-10] MEDS: LOSARTAN POTASSIUM 50 MG TABLET (FP) PO SCH ×2 (20:26→22:07)
[2016-06-10] MEDS ORDERED: clonazePAM 0.5 MG TABLET PO ONE (20:30)
[2016-06-10] MEDS: SODIUM CHLORIDE 0.45%/POT 1,000 ML IV SCH (20:45)
--- NOTE | 2016-06-10 21:51 | HP ---
Admitting History and Physical - Primary Care Physician PCP: Claudio Pat - Admission Chief Complaint: ALTERED MENTAL STATUS History of Present Illness: 71 Y/O FEMALE WAS SENT IN TO ED FOR ALTERED MENTAL STATUS, CONFUSION, PARANOIA, ODD BEHAVIOR. PATIENT S/P LAMINECTOMY LUMBAR SPINE AND SENT TO [facility] FOR REHAB. PATIENT HAD ODD BEHAVIOR AND WALKING INTO PATIENTS ROOM WHEN SHE WAS FOUND TO HAVE TRACE LEUKOCYTES IN URINE AND TREATED WITH CIPRO 500MG BID FOR 5 DAYS. THE BEHAVIOR DID NOT CHANGE AND WORSENED. PATIENT BROUGHT TO ED FOR EVAL. CT HEAD NO ACUTE CVA History Source: Patient - Past Medical History Cardiovascular: Yes: HTN - Smoking History Smoking history: Never smoked Have you smoked in the past 12 months: No - Alcohol/Substance Use Hx Alcohol Use: No Home Medications - Allergies Allergies/Adverse Reactions: Allergies Allergy/AdvReac Type Severity Reaction Status Date / Time No Known Allergies Allergy Verified 06/09/16 16:54 - Home Medications Home Medications: Ambulatory Orders Aspirin [Lo-Dose Aspirin EC] 81 mg PO DAILY 04/16/16 Losartan Potassium 50 mg PO HS 04/16/16 Atorvastatin Ca [Lipitor] 40 mg PO HS 04/19/16 Carvedilol [Coreg -] 6.25 mg PO BID 04/19/16 Cholecalciferol (Vitamin D3) [Vitamin D3] 2,000 unit PO DAILY 04/19/16 Review of Systems - Review of Systems Constitutional: reports: Lethargy, Weakness Eyes: reports: No Symptoms HENT: reports: No Symptoms Neck: reports: No Symptoms Cardiovascular: reports: No Symptoms Respiratory: reports: No Symptoms Gastrointestinal: reports: No Symptoms Genitourinary: reports: No Symptoms Musculoskeletal: reports: Muscle Weakness Integumentary: reports: No Symptoms Neurological: reports: Confusion, Unsteady Gait Endocrine: reports: No Symptoms Hematology/Lymphatic: reports: No Symptoms Psychiatric: reports: No Symptoms Physical Examination Vital Signs: Vital Signs Temperature 98.0 F 06/10/16 17:45 Pulse Rate 83 06/10/16 17:45 Respiratory Rate 18 06/10/16 17:45 Blood Pressure 162/72 06/10/16 17:45 O2 Sat by Pulse Oximetry (%) 97 06/10/16 09:00 Constitutional: Yes: Moderate Distress Eyes: Yes: WNL HENT: Yes: WNL Neck: Yes: WNL Cardiovascular: Yes: WNL Respiratory: Yes: WNL Gastrointestinal: Yes: WNL Renal/: Yes: WNL Musculoskeletal: Yes: WNL Extremities: Yes: WNL Edema: No Peripheral Pulses WNL: Yes Integumentary: Yes: WNL Wound/Incision: Yes: Clean/Dry Neurological: Yes: Confusion, Unsteady Gait ...Motor Strength: LLE, RLE Psychiatric: Yes: Agitated, Other Labs: CBC, BMP 06/10/16 09:50 06/10/16 09:50 Problem List - Problems (1) Altered mental status Code(s): R41.82 - ALTERED MENTAL STATUS, UNSPECIFIED Qualifiers: Altered mental status type: unspecified Qualified Code(s): R41.82 - Altered mental status, unspecified (2) Hypertension Code(s): I10 - ESSENTIAL (PRIMARY) HYPERTENSION (3) Lipidemia Code(s): E78.5 - HYPERLIPIDEMIA, UNSPECIFIED (4) Lumbar radiculopathy, chronic Code(s): M54.16 - RADICULOPATHY, LUMBAR REGION (5) Spinal stenosis Code(s): M48.00 - SPINAL STENOSIS, SITE UNSPECIFIED Assessment/Plan URINE AND BLOOD CULTURES PENDING MRI BRAIN R/O CVA CT HEAD NO ACUTE CHANGES PT EVAL LIKELY DELERIUM WITH PARANOA PSYCHIATRY AND NEUROLOGY EVAL
[2016-06-10] MEDS: ATORVASTATIN CA 40 MG TABLET (FP) PO SCH (22:06)
--- NOTE | 2016-06-11 09:21 | DS ---
Physical Examination Vital Signs: Vital Signs Temperature 97.8 F 06/11/16 08:00 Pulse Rate 78 06/11/16 08:00 Respiratory Rate 18 06/11/16 08:00 Blood Pressure 154/88 06/11/16 08:00 O2 Sat by Pulse Oximetry (%) 97 06/10/16 21:00 Findings/Remarks: patient had mri brain yesterday and was reported as normal with no acute changes , she appears better today with less paranoia Constitutional: Yes: Mild Distress Eyes: Yes: WNL HENT: Yes: WNL Neck: Yes: WNL Cardiovascular: Yes: WNL Respiratory: Yes: WNL Gastrointestinal: Yes: WNL Musculoskeletal: Yes: Muscle Weakness Extremities: Yes: WNL Edema: No Peripheral Pulses WNL: Yes Integumentary: Yes: WNL Wound/Incision: Yes: Clean/Dry Neurological: Yes: Confusion, Unsteady Gait, Weakness ...Motor Strength: LLE, RLE Psychiatric: Yes: Other (slighlty better today) Labs: CBC, BMP 06/10/16 09:50 06/10/16 09:50 Discharge Summary Reason For Visit: ALTERED MENTAL STATUS Current Active Problems Altered mental status (Acute) Condition: Stable - Instructions Diet, Activity, Other Instructions: physical therapy and walker for ambulation Referrals: Claudio Pat MD [Primary Care Provider] - Disposition: VNS/HOME HEALTH CARE - Home Medications Comprehensive Discharge Medication List: Ambulatory Orders Aspirin [Lo-Dose Aspirin EC] 81 mg PO DAILY 04/16/16 Losartan Potassium 50 mg PO HS 04/16/16 Atorvastatin Ca [Lipitor] 40 mg PO HS 04/19/16 Carvedilol [Coreg -] 6.25 mg PO BID 04/19/16 Cholecalciferol (Vitamin D3) [Vitamin D3] 2,000 unit PO DAILY 04/19/16
--- NOTE | 2016-06-11 09:37 | PN ---
Progress Note (short form) - Note Progress Note: DISCUSSED WITH DR SALINAS, WILL ORDER MRI LSPINE WITH AND WITHOUT CONTRAST , ESR , CRP R/O SPINAL INFECTION. Problem List - Problems (1) Altered mental status Code(s): R41.82 - ALTERED MENTAL STATUS, UNSPECIFIED Qualifiers: Altered mental status type: unspecified Qualified Code(s): R41.82 - Altered mental status, unspecified (2) Hypertension Code(s): I10 - ESSENTIAL (PRIMARY) HYPERTENSION (3) Lipidemia Code(s): E78.5 - HYPERLIPIDEMIA, UNSPECIFIED (4) Lumbar radiculopathy, chronic Code(s): M54.16 - RADICULOPATHY, LUMBAR REGION (5) Spinal stenosis Code(s): M48.00 - SPINAL STENOSIS, SITE UNSPECIFIED
[2016-06-11] MEDS: ASPIRIN COATED 81 MG TABLET.EC PO SCH (10:23)
[2016-06-11] MEDS: CARVEDILOL 6.25 MG TABLET (FP) PO SCH ×3 (10:23→21:57)
[2016-06-11] MEDS: HEPARIN NA (PORCINE) 5,000 UNITS/ML 1ML VIAL SQ SCH ×2 (10:23→21:59)
[2016-06-11 11:01] LABS: FREE T4 1.11 ng/dl (0.76-1.46)
[2016-06-11 11:21] LABS: THYROID STIMULATING HORMONE 1.04 uIU/ml (0.358-3.74)
[2016-06-11 11:51] LABS: C-REACTIVE PROTEIN < 0.3 MG/DL (0.00-0.3)
--- NOTE | 2016-06-11 15:18 | CONSULT ---
Consult - text type - Consultation Consultation Note: NEUROLOGY CONSULTATION is greatly appreciated: Pt is seen with Dr. Pat who aides in translation. Case discussed in detail. This 71 yo RH woman with h/o HTN, Chol on Carvedilol, atorvastatin, and losartan was evaulated by me las September for Low back pain and Neurogenic claudication. Work up revealed polyradiculopathy on the EMG and severe LS spinal stenosis at L4L5 on the MRI. Patient last seen 11/30/16. She is now s/p LS laminectomy Apr. Chart suggested she was decompressed at L3L4. While in Rehab at [place], she became confused, wandering and paranoid. This recurred when she was discharged to her home and she was evaluated by Dr. Pat who gave Rx for UTI and admitted. Pt continues to note unsteady gait, tending to fall to the right. Continues to require a walker after 1 month of rehab. No bladder incontinence. + Urgency. MRI of brain (reviewed): Moderate, diffuse, atrophy and scattered, periventricular microvascular changes. TAMICA: No evidence of external head trauma. No bruits. Well-healed LS scar. NEURO: Ox [facility]. Remembers me. Mild OMS- difficulty with year. Speech fluent CN II-XII: Normal Motor: Normal strength except mild Right plantar flexion (4/5). Absent AJ's. Toes downgoing. Coord: Normal Sensation: Decreased vibration both feet. Romberg + Gait: Unsteady, wobbling. IMP: 1. Mild underlying OMS 2. Toxic-metabolic encephalopathy possible due to UTI 3. Persistent Lumbosacral polyradiculopathy. Suggest: Check B12, TSH, RPR, ESR, CRP Repeat UA/ C&S Update MRI of the LS spine. Neuro flu as out patient. Continue out patient PT for gait with walker. Thank you very much, Flip Conte MD
--- NOTE | 2016-06-11 15:47 | PN ---
Progress Note (short form) - Note Progress Note: DISCUSSED WITH DR SALINAS, ORDERING ESR AND CRP WITH B12/FOLIC ACID LEVEL. ALSO ADDIN GLSPINE MRI WITH AND WITHOUT CONTRAST TO R/O INFECTION AT OPERATIVE SITE. AFTER MRI WILL DC HOME. MAY NEED NEUROSURGERY F/U FOR BALANCE AND GAIT ABNORMALITY. Problem List - Problems (1) Altered mental status Code(s): R41.82 - ALTERED MENTAL STATUS, UNSPECIFIED Qualifiers: Altered mental status type: unspecified Qualified Code(s): R41.82 - Altered mental status, unspecified (2) Hypertension Code(s): I10 - ESSENTIAL (PRIMARY) HYPERTENSION (3) Lipidemia Code(s): E78.5 - HYPERLIPIDEMIA, UNSPECIFIED (4) Lumbar radiculopathy, chronic Code(s): M54.16 - RADICULOPATHY, LUMBAR REGION (5) Spinal stenosis Code(s): M48.00 - SPINAL STENOSIS, SITE UNSPECIFIED
[2016-06-11] MEDS: LOSARTAN POTASSIUM 50 MG TABLET (FP) PO SCH ×2 (17:54→21:57)
[2016-06-11] MEDS: ATORVASTATIN CA 40 MG TABLET (FP) PO SCH (21:59)
[2016-06-11] MEDS ORDERED: clonazePAM 0.5 MG TABLET PO ONE (22:00)
[2016-06-11 22:24] LABS: URINE APPEARANCE CLEAR; URINE BILIRUBIN NEGATIVE (NEGATIVE); URINE BLOOD NEGATIVE (NEGATIVE); URINE COLOR STRAW; URINE GLUCOSE (UA) NEGATIVE (NEGATIVE); URINE KETONE NEGATIVE (NEGATIVE); URINE LEUK ESTERASE NEGATIVE (NEGATIVE); URINE NITRITE NEGATIVE (NEGATIVE); URINE PROTEIN NEGATIVE (NEGATIVE); URINE UROBILINOGEN NEGATIVE E.U./dl (0.2-1.0)
[2016-06-11] MEDS: SODIUM CHLORIDE 0.45%/POT 1,000 ML IV SCH (23:00)
[2016-06-12 05:41] VITALS: TEMP 97.6
[2016-06-12 08:48] VITALS: BP 144/70; PULSE 80
[2016-06-12] MEDS: CARVEDILOL 6.25 MG TABLET (FP) PO SCH (09:08)
[2016-06-12] MEDS: HEPARIN NA (PORCINE) 5,000 UNITS/ML 1ML VIAL SQ SCH (09:08)
[2016-06-12] MEDS: ASPIRIN COATED 81 MG TABLET.EC PO SCH (09:08)
[2016-06-12] MEDS: SODIUM CHLORIDE 0.45%/POT 1,000 ML IV SCH (09:09)
--- NOTE | 2016-06-12 09:21 | PN ---
Progress Note (short form) - Note Progress Note: i reviewed the mri of lspine with dr nichols who reports the view is good enough although not complete. The mri did not show and infections or acute obvious change. will discharge home follow as outpatient with dr mel hood Problem List - Problems (1) Altered mental status Code(s): R41.82 - ALTERED MENTAL STATUS, UNSPECIFIED Qualifiers: Altered mental status type: unspecified Qualified Code(s): R41.82 - Altered mental status, unspecified (2) Hypertension Code(s): I10 - ESSENTIAL (PRIMARY) HYPERTENSION (3) Lipidemia Code(s): E78.5 - HYPERLIPIDEMIA, UNSPECIFIED (4) Lumbar radiculopathy, chronic Code(s): M54.16 - RADICULOPATHY, LUMBAR REGION (5) Spinal stenosis Code(s): M48.00 - SPINAL STENOSIS, SITE UNSPECIFIED
[2016-06-12] MEDS ORDERED: clonazePAM 0.5 MG TABLET PO ONE (10:00)
== END 2016-06-12 10:51 | disposition home or self-care (01) | DRG 948 ==
LOC: JER 16:46 → JERBED 19:01 → J6S 20:03
PROVIDERS: ADMIT Family Medicine; ATTEND Family Medicine
DX: R41.82 Altered mental status, unspecified (principal); F05 Delirium due to known physiological condition; I10 Essential (primary) hypertension; E78.00 Pure hypercholesterolemia, unspecified; R73.03 Prediabetes; M54.16 Radiculopathy, lumbar region; E78.5 Hyperlipidemia, unspecified; R26.81 Unsteadiness on feet; F22 Delusional disorders
CPT/HCPCS: 36415; 36600; 70450-TC; 70553-TC; 71010-TC; 72158-TC; 80053; 80061; 81003; 82607; 82746; 82803; 83036; 83721; 84439; 84443; 85025; 85651; 86140; 87040; 87086; 93005; 93010; 97116-GP; 97162-PG; 99284-25; A9576; J1644; J3480

== ENCOUNTER 2018-12-28 13:54 | Inpatient (IN) | payer OTHER ==
--- NOTE | 2018-12-28 14:01 | PDOC ---
Rapid Medical Evaluation Time Seen by Provider: 12/28/18 13:59 Medical Evaluation: Allergies Allergy/AdvReac Type Severity Reaction Status Date / Time No Known Allergies Allergy Verified 06/09/16 16:54 12/28/18 13:59 I have performed a brief in-person evaluation of this patient. The patient presents with a chief complaint of: AMS x 2 weeks, "hallucinating and hitting things, getting up in the middle of the night" per daughter. hx of HTN, HLD, lumbar radiculopathy s/p laminectomy PCP Claudio Pat Pertinent physical exam findings: well appearing I have ordered the following: labs, ekg, urine The patient will proceed to the ED for further evaluation. Discharge Disposition - Diagnosis Altered mental status - Discharge Dispostion Condition at time of disposition: Stable - Referrals - Patient Instructions - Post Discharge Activity
--- NOTE | 2018-12-28 14:22 | PDOC ---
History of Present Illness - General Chief Complaint: Altered Mental Status Stated Complaint: Sent by PMD Time Seen by Provider: 12/28/18 13:59 History Source: Patient, Family (sister Carmen Braden [phone]) Exam Limitations: No Limitations - History of Present Illness Initial Comments: 12/28/18 14:21 Veronica Kat is a 73yF w PMHx HTN HLD chronic lumbar radiculopathy presenting w altered mental status. Has visual and auditory hallucinations for last month, acutely worsening over past week. Per family, pt would be talking to imaginary brother and reaching for things in distance. Associated pyuria. 12/17 diagnosed w UTI at PCP office, prescribed ciprofloxacin and olanzapine. Pt took only 1/2 prescribed daily dose of cipro, did not finish antibiotic course. Lives at home alone, denies fall or head trauma. Denies fever, nausea/vomiting, cough, SOB, chest/AB pain, bowel movement changes. Past History - Past Medical History Allergies/Adverse Reactions: Allergies Allergy/AdvReac Type Severity Reaction Status Date / Time No Known Allergies Allergy Verified 06/09/16 16:54 Home Medications: Ambulatory Orders Amlodipine Besylate 10 mg PO DAILY 12/28/18 Aspirin [Aspirin EC] 81 mg PO DAILY 12/28/18 Ciprofloxacin [Cipro (Restricted To Id)] 500 mg PO Q12H 12/28/18 Losartan Potassium 100 mg PO DAILY 12/28/18 Metoprolol Tartrate [Lopressor -] 50 mg PO DAILY 12/28/18 Olanzapine [Zyprexa -] 2.5 mg PO HS 12/28/18 Simvastatin 40 mg PO HS 12/28/18 Anemia: No Asthma: No Cancer: No Cardiac Disorders: No CVA: No COPD: No CHF: No Dementia: No Diabetes: Yes ("BORDERLINE, NO MEDICATIONS.") GI Disorders: No Disorders: No HTN: Yes Hypercholesterolemia: Yes Liver Disease: No Seizures: No Thyroid Disease: No - Immunization History Immunization Up to Date: No - Psycho Social/Smoking Cessation Hx Smoking History: Never smoked Have you smoked in the past 12 months: No Information on smoking cessation initiated: No Hx Alcohol Use: No Drug/Substance Use Hx: No Substance Use Type: None Hx Substance Use Treatment: No Review of Systems - Review of Systems Constitutional: No: Chills, Fever HEENTM: No: Eye Pain, Nose Pain, Nose Congestion, Throat Pain, Mouth Pain Respiratory: No: Cough, Shortness of Breath Cardiac (ROS): No: Chest Pain, Palpitations, Syncope ABD/GI: No: Abdominal Distended, Constipated, Diarrhea, Nausea, Vomiting : Yes: Pain. No: Dysuria, Discharge, Flank Pain, Hematuria Musculoskeletal: No: Back Pain, Joint Pain, Muscle Pain Integumentary: No: Bruising, Flushing, Lesions Neurological: No: Headache, Seizure, Tingling, Tremors Psychiatric: No: Anxiety, Depression, Stressors Endocrine: No: Excessive Sweating, Flushing, Intolerance to Cold, Intolerance to Heat Hematologic/Lymphatic: No: Anemia, Blood Clots *Physical Exam - Vital Signs Last Vital Signs Temp Pulse Resp BP Pulse Ox 98.1 F 89 16 142/51 L 100 12/28/18 14:01 12/28/18 14:01 12/28/18 14:01 12/28/18 14:01 12/28/18 14:01 - Physical Exam General Appearance: Yes: Nourished, Appropriately Dressed. No: Apparent Distress HEENT: positive: EOMI, MARIA M, Normal Voice, Hearing Grossly Normal. negative: Scleral Icterus (R), Scleral Icterus (L), Nasal Congestion, Rhinorrhea Respiratory/Chest: positive: Lungs Clear, Normal Breath Sounds. negative: Chest Tender, Respiratory Distress, Crackles, Rales, Rhonchi, Stridor, Wheezing Cardiovascular: positive: Regular Rhythm, Regular Rate, S1, S2. negative: Edema , Murmur Gastrointestinal/Abdominal: positive: Normal Bowel Sounds, Flat, Soft. negative : Tender, Organomegaly, Distended, Guarding, Rebound Musculoskeletal: negative: CVA Tenderness (R), CVA Tenderness (L) Extremity: positive: Normal Capillary Refill Integumentary: positive: Normal Color. 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 negative: Numbness, Sensory Deficit, Confused, Disoriented ED Treatment Course - LABORATORY CBC & Chemistry Diagram: 12/28/18 14:28 12/28/18 14:28 Medical Decision Making - Medical Decision Making 12/28/18 15:31 CBC CMP trop UA CXR EKG Head CT Head CT shows no acute bleed/infarct, chronic mild periventricular microvascular ischemic changes EKG shows NSR, HR 90, QTc CXR showsclear lung zaragoza CBC coags CMP UA normal, trop neg --- Veronica Kat is a 73yF w PMHx HTN HLD chronic lumbar radiculopathy presenting w 1mo altered mental status w hallucinations likely d/t delirium (normal WBC, afebrile, no clear source of infection). No evidence of CVA (no focal neuro deficits, no acute bleed/infarct on head CT) or UTI (normal UA) or ACS (neg trop , NSR EKG) or PNA (clear lungs on CXR) Admitted to Dr Claudio Pat med/surg for AMS Discharge - Discharge Information Problems reviewed: Yes Clinical Impression/Diagnosis: Altered mental status Qualifiers: Altered mental status type: unspecified Qualified Code(s): R41.82 - Altered mental status, unspecified Condition: Stable - Follow up/Referral - Patient Discharge Instructions - Post Discharge Activity
[2018-12-28 14:42] LABS: BASO % 0.6 % (0-2.0); EOS % 1.4 % (0-4.5); HEMATOCRIT 38.5 % (32.4-45.2); HEMOGLOBIN 13.1 GM/dL (10.7-15.3); LYMPH % 29.3 % (8-40); MCH 31.2 pg (25.7-33.7); MEAN CELL VOLUME 91.8 fl (80-96); MEAN PLT VOLUME 6.8 fl (7.5-11.1); MONO % 7.7 % (3.8-10.2); PLATELET COUNT 297 K/MM3 (134-434); RBC 4.19 M/mm3 (3.60-5.2); RDW 13.3 % (11.6-15.6); WHITE BLOOD COUNT 6.3 K/mm3 (4.0-10.0)
[2018-12-28 14:57] LABS: PH,URINE 6.5 (5.0-8.0); URINE APPEARANCE CLEAR; URINE BILIRUBIN NEGATIVE (NEGATIVE); URINE COLOR YELLOW; URINE GLUCOSE (UA) TRACE (NEGATIVE); URINE KETONE NEGATIVE (NEGATIVE); URINE LEUK ESTERASE NEGATIVE (NEGATIVE); URINE NITRITE NEGATIVE (NEGATIVE); URINE PROTEIN NEGATIVE (NEGATIVE); URINE UROBILINOGEN 0.2 mg/dL (0.2-1.0)
[2018-12-28 15:02] LABS: INR 1.04 (0.83-1.09); PROTHROMBIN TIME (PATIENT) 12.3 SEC (9.7-13.0)
[2018-12-28 15:08] LABS: ALBUMIN 3.6 g/dl (3.4-5.0); ALK PHOS 29 U/L (45-117); ANION GAP 7 MMOL/L (8-16); BILIRUBIN,TOTAL 0.9 mg/dL (0.2-1); BLOOD UREA NITROGEN 18.6 mg/dL (7-18); CALCIUM 9.4 mg/dL (8.5-10.1); CHLORIDE 106 mmol/L (98-107); CO2 28 mmol/L (21-32); CREATININE 1.2 mg/dL (0.55-1.3); GLUCOSE,RANDOM 185 mg/dL (74-106); POTASSIUM 4.4 mmol/L (3.5-5.1); SGOT/AST 12 U/L (15-37); SGPT/ALT 22 U/L (13-61); SODIUM 141 mmol/L (136-145); TOT PROT 7.1 g/dl (6.4-8.2)
--- NOTE | 2018-12-28 16:20 | PDOC ---
Documentation entered by Karen Arguelles SCRIBE, acting as scribe for Mikel Green MD. Mikel Green MD: This documentation has been prepared by the Kindra willson Adrianna, SCRIBE, under my direction and personally reviewed by me in its entirety. I confirm that the documentation accurately reflects all work, treatment, procedures, and medical decision making performed by me. Attending Attestation - Resident Resident Name: Meliton Ramirez - ED Attending Attestation I have performed the following: I have examined & evaluated the patient, The case was reviewed & discussed with the resident, I agree w/resident's findings & plan - HPI HPI: 12/28/18 16:14 73-year-old female history of hypertension and high cholesterol and usual state of health until the last few weeks when she was treated for outpatient UTI pansensitive to antibiotics, currently on Cipro, brought in by family and referred by PCP for evaluation of acute altered mental status over the last few days, subtle but gradually progressing over the last month as well. No documented falls or head injury, no fevers or chills. Patient herself has no complaints. - Physicial Exam PE: 12/28/18 16:15 Vital signs stable, afebrile Pashto speaking mostly, otherwise without acute complaints Exam is atraumatic Pupils are equal round reactive to light, extra movements are intact Neck is supple Heart is regular, lungs are clear Abdomen benign Neurological exam is nonfocal Slight disorientation, family reports hallucinations - Medical Decision Making 12/28/18 16:16 73-year-old female with acute delirium with dementia over the last few weeks, also in the setting of outpatient diagnosis of UTI with treatment. Hemodynamically stable here without acute neurological deficits, CT head with microvascular ischemic changes but no acute pathology. Labs are within normal limits, no leukocytosis and chemistries normal. urinalysis without evidence of current infection. Chest x-ray, EKG, CT head Discussed with PCP Dr. Pat, will admit for further work-up Heart Score/ECG Review #1 ECG reviewed & interpreted by me at: 14:10 General ECG Interpretation: Sinus Rhythm, Normal Rate (90), Normal Intervals ( qtc 447), No acute ischemic changes
[2018-12-28 22:21] VITALS: BMI 27.6
--- NOTE | 2018-12-28 23:10 | PN ---
Teaching Attending Note Name of Resident: Noé Hardwick ATTENDING PHYSICIAN STATEMENT I saw and evaluated the patient. I reviewed the resident's note and discussed the case with the resident. I agree with the resident's findings and plan as documented. SUBJECTIVE: 73y woman w PMHx HTN HLD chronic lumbar radiculopathy presented w altered mental status. Has visual and auditory hallucinations for last month, acutely worsening over past week. Per family, pt would be talking to imaginary brother and reaching for things in distance. Lives at home alone. Was noted to be treated with ciprofloxacin for a cystitis. OBJECTIVE: Last Vital Signs Temp Pulse Resp BP Pulse Ox 97.9 F 85 20 146/62 97 12/28/18 22:14 12/28/18 22:14 12/28/18 22:29 12/28/18 22:14 12/28/18 22:29 gen -nontoxic appearing heent -atraumatic neck supple cv -s1+s2+rrr chest clear abdomen -soft, nt ext - no edema Abnormal Lab Results 12/28/18 12/28/18 14:28 14:28 MPV 6.8 L Anion Gap 7 L BUN 18.6 H Random Glucose 185 H AST 12 L Alkaline Phosphatase 29 L imaging studies reviewed ASSESSMENT AND PLAN: #AMS - delerium. CT head was wnl, UA was wnl, electrolytes wnl. Patient lives alone and might benefit from social work specialist intervention for safety. Possibly medication induced -cipro? -admit to med/surg -bed rest/ fall precautions -rpr -tsh -vit b12 -haldol prn if worsening delerium #HTN -metorpolol, amlodpine, losartan #DLP -simvastatin #dvt ppx- heparin sc
--- NOTE | 2018-12-29 00:37 | HP ---
CHIEF COMPLAINT: altered mental status PCP: Claudio Pedro HISTORY OF PRESENT ILLNESS: Patient is a 73 year old female with history of hypertension presents from home with complaint of visual hallucinations. As per family, patient has been endorsing visual hallucinations of people walking around the room when no one is there. Patient has been noted to have conversations while no one else is in the room. Symptoms have been ongoing for the past week. Noted that patient had similar presentation with negative workup two years ago. Patient was seen by physician last week for urinary tract infection, however reported that she was not compliant with outpatient antibiotic course. Patient denies acute complaints of headache, changes in vision, chest pain, palpitations, abdominal pain, nausea, vomiting. ER course was notable for: (1) CT head negative for acute pathology (2) Chest radiograph negative (3) PAST MEDICAL HISTORY: hypertension PAST SURGICAL HISTORY: denies Social History: Smoking: denies Alcohol: denies Drugs: denies Lives at home. 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 Allergies No Known Allergies Allergy (Verified 06/09/16 16:54) HOME MEDICATIONS: Home Medications Medication Instructions Recorded Amlodipine Besylate 10 mg PO DAILY 12/28/18 Aspirin [Aspirin EC] 81 mg PO DAILY 12/28/18 Ciprofloxacin [Cipro (Restricted 500 mg PO Q12H 12/28/18 To Id)] Losartan Potassium 100 mg PO DAILY 12/28/18 Metoprolol Tartrate [Lopressor -] 50 mg PO DAILY 12/28/18 Olanzapine [Zyprexa -] 2.5 mg PO HS 12/28/18 Simvastatin 40 mg PO HS 12/28/18 REVIEW OF SYSTEMS As per HPI. Unable to due to patient clinical condition. PHYSICAL EXAMINATION Vital Signs - 24 hr 12/28/18 12/28/18 12/28/18 14:01 19:50 22:14 Temperature 98.1 F 98.0 F 97.9 F Pulse Rate 89 85 Pulse Rate [ 82 Apical] Respiratory 16 16 20 Rate Blood Pressure 142/51 L 146/62 Blood Pressure 139/64 [Left Arm] O2 Sat by Pulse 100 98 Oximetry (%) 12/28/18 22:29 Temperature Pulse Rate Pulse Rate [ Apical] Respiratory 20 Rate Blood Pressure Blood Pressure [Left Arm] O2 Sat by Pulse 97 Oximetry (%) GENERAL: The patient is awake, alert, and oriented to person and place, in no acute distress. HEAD: Normocephalic, atraumatic. EYES: PERRL, extraocular movements intact, sclera anicteric, conjunctiva clear. ENT: Oropharynx clear, without erythema or exudates. Moist mucous membranes. NECK: Trachea midline, full range of motion. Supple without lymphadenopathy. LUNGS: Breath sounds equal, clear to auscultation bilaterally, no wheezes, no crackles. No accessory muscle use. HEART: Regular rate and rhythm, S1, S2 without murmur, rub or gallop. ABDOMEN: Soft, nondistended, nontender to light and deep palpation x4 quadrants , no rebound tenderness, no guarding. Normoactive bowel sounds x4 quadrants. no hepatosplenomegaly, no masses. EXTREMITIES: 2+ radial, dorsalis pedis pulses bilaterally. Warm, well-perfused. No lower extremity edema bilaterally. NEUROLOGICAL: Cranial nerves II through XII grossly intact. Normal speech. No gross focal deficits. PSYCH: Normal mood, normal affect upon my encounter. SKIN: Warm, dry. Laboratory Results - last 24 hr 12/28/18 12/28/18 12/28/18 14:28 14:28 14:28 WBC 6.3 RBC 4.19 Hgb 13.1 Hct 38.5 MCV 91.8 MCH 31.2 MCHC 34.0 RDW 13.3 Plt Count 297 D MPV 6.8 L Absolute Neuts (auto) 3.8 Neutrophils % 61.0 Lymphocytes % 29.3 Monocytes % 7.7 Eosinophils % 1.4 Basophils % 0.6 Nucleated RBC % 0 PT with INR 12.30 INR 1.04 Sodium 141 Potassium 4.4 Chloride 106 Carbon Dioxide 28 Anion Gap 7 L BUN 18.6 H Creatinine 1.2 Est GFR (CKD-EPI)AfAm 51.20 Est GFR (CKD-EPI)NonAf 44.17 Random Glucose 185 H Calcium 9.4 Total Bilirubin 0.9 AST 12 L ALT 22 Alkaline Phosphatase 29 L Creatine Kinase 73 Troponin I < 0.02 Total Protein 7.1 Albumin 3.6 Urine Color Urine Appearance Urine pH Ur Specific [place] Urine Protein Urine Glucose (UA) Urine Ketones Urine Blood Urine Nitrite Urine Bilirubin Urine Urobilinogen Ur Leukocyte Esterase Blood Type Antibody Screen 12/28/18 12/28/18 14:28 14:28 WBC RBC Hgb Hct MCV MCH MCHC RDW Plt Count MPV Absolute Neuts (auto) Neutrophils % Lymphocytes % Monocytes % Eosinophils % Basophils % Nucleated RBC % PT with INR INR Sodium Potassium Chloride Carbon Dioxide Anion Gap BUN Creatinine Est GFR (CKD-EPI)AfAm Est GFR (CKD-EPI)NonAf Random Glucose Calcium Total Bilirubin AST ALT Alkaline Phosphatase Creatine Kinase Troponin I Total Protein Albumin Urine Color Yellow Urine Appearance Clear Urine pH 6.5 Ur Specific [place] 1.018 Urine Protein Negative Urine Glucose (UA) Trace Urine Ketones Negative Urine Blood Negative Urine Nitrite Negative Urine Bilirubin Negative Urine Urobilinogen 0.2 Ur Leukocyte Esterase Negative Blood Type A POSITIVE Antibody Screen Negative ASSESSMENT/PLAN: Patient is a 73 year old female with history of hypertension presents from home with complaint of visual hallucinations. Acute metabolic encephalopathy -Though patient had reproted UTI with ?incomplete treatment, current urinalysis unremarkable for acute urinary tract infection. Patient afebrile, without WBC count, low suspicion for infectious etiology. Will monitor off antibiotics for now. -CT head negative for acute intracranial pathology -Neurology evaluation (Dr. Conte) -Follow vitamin B12, Folate, TSH, RPR, ESR, CRP -Fall precautions -Physical therapy evaluation Hypertension -Continue home antihypertensives; Metoprolol, Amlodipine, Losartan Hyperlipidemia -Continue Simvastatin FEN -No IV fluids indicated -Follow BMP -Sodium modified diet Prophylaxis -Heparin 5000units subq TID Disposition -Admit to medical surgical floor. Visit type - Emergency Visit Emergency Visit: Yes ED Registration Date: 12/28/18 Care time: The patient presented to the Emergency Department on the above date and was hospitalized for further evaluation of their emergent condition. - New Patient This patient is new to me today: Yes Date on this admission: 12/29/18 - Critical Care Critical Care patient: No ATTENDING PHYSICIAN STATEMENT I saw and evaluated the patient. I reviewed the resident's note and discussed the case with the resident. I agree with the resident's findings and plan as documented. SUBJECTIVE: OBJECTIVE: ASSESSMENT AND PLAN:
[2018-12-29 08:23] LABS: HEMATOCRIT 34.9 % (32.4-45.2); HEMOGLOBIN 12.2 GM/dL (10.7-15.3); MCH 31.7 pg (25.7-33.7); MCHC 34.9 g/dl (32.0-36.0); MEAN CELL VOLUME 90.9 fl (80-96); PLATELET COUNT 280 K/MM3 (134-434); RBC 3.84 M/mm3 (3.60-5.2); RDW 13.3 % (11.6-15.6); WHITE BLOOD COUNT 5.6 K/mm3 (4.0-10.0)
[2018-12-29 09:30] LABS: ALBUMIN 3.4 g/dl (3.4-5.0); BILIRUBIN,TOTAL 1.2 mg/dL (0.2-1); BLOOD UREA NITROGEN 27.4 mg/dL (7-18); CALCIUM 9.2 mg/dL (8.5-10.1); MAGNESIUM 1.9 mg/dL (1.8-2.4); PHOSPHOROUS 3.7 mg/dL (2.5-4.9); POTASSIUM 4.3 mmol/L (3.5-5.1); TOT PROT 6.7 g/dl (6.4-8.2)
[2018-12-29 10:01] LABS: COCAINE, UR NEGATIVE ng/ml (CUTOFF=300); METHADONE, UR NEGATIVE ng/ml (CUTOFF=300); OPIATES, URI NEGATIVE ng/ml (CUTOFF=300); PHENCYCLIDINE,URINE NEGATIVE ng/ml (CUTOFF=25); URINE AMPHETAMINES NEGATIVE ng/ml (CUTOFF=500); URINE BARBITURATES NEGATIVE ng/ml (CUTOFF=200); URINE BENZODIAZEPINES NEGATIVE ng/ml (CUTOFF=200)
--- NOTE | 2018-12-29 12:53 | EKG ---
Test Reason : Blood Pressure : / mmHG Vent. Rate : 090 BPM Atrial Rate : 090 BPM P-R Int : 140 ms QRS Dur : 078 ms QT Int : 366 ms P-R-T Axes : 007 -03 016 degrees QTc Int : 447 ms NORMAL SINUS RHYTHM POSSIBLE INFERIOR INFARCT (CITED ON OR BEFORE 10-JUN-2016) ABNORMAL ECG WHEN COMPARED WITH ECG OF 10-JUN-2016 09:38, NO SIGNIFICANT CHANGE WAS FOUND Confirmed by LEONEL SPANN MD ([id number]) on 12/29/2018 12:53:01 PM Referred By: Confirmed By:LEONEL SPANN MD
[2018-12-29] MEDS ORDERED: OLANZapine 2.5 MG TABLET PO SCH (14:38)
--- NOTE | 2018-12-29 17:00 | PN ---
Progress Note, Physician Chief Complaint: AMS History of Present Illness: Previous notes and events reviewed awake and alert NAD patient is having visual hallucinations seeing someone in the room and snakes on the floor denies chest pain or SOB - Current Medication List Current Medications: Active Medications Olanzapine (Zyprexa -) 2.5 mg PO BID [facility] Last Admin: 12/29/18 16:29 Dose: 2.5 mg - Objective Vital Signs: Vital Signs Temperature 98.0 F 12/29/18 05:50 Pulse Rate 103 H 12/29/18 11:00 Respiratory Rate 18 12/29/18 11:00 Blood Pressure 120/72 12/29/18 11:00 O2 Sat by Pulse Oximetry (%) 97 12/28/18 22:29 Constitutional: Yes: No Distress, Calm Eyes: Yes: Conjunctiva Clear HENT: Yes: Atraumatic Cardiovascular: Yes: Regular Rate and Rhythm Respiratory: Yes: Regular, CTA Bilaterally Gastrointestinal: Yes: Normal Bowel Sounds, Soft Musculoskeletal: Yes: WNL Extremities: Yes: WNL Edema: No Neurological: Yes: Alert, Oriented Psychiatric: Yes: Alert, Other (visual hallucinations) Labs: CBC, BMP 12/29/18 06:58 12/29/18 06:58 INR, PTT INR 1.04 (0.83-1.09) 12/28/18 14:28 Problem List - Problems (1) Altered mental status Assessment/Plan: -Zyprexa BID -Neurology and Psych consult -MRI of Brain - pending -Head CT scan shows mild periventricular chronic microvascular ischemic changes Code(s): R41.82 - ALTERED MENTAL STATUS, UNSPECIFIED Qualifiers: Altered mental status type: unspecified Qualified Code(s): R41.82 - Altered mental status, unspecified (2) Hypertension Assessment/Plan: -Norvasc, Metoprolol -low Na diet Code(s): I10 - ESSENTIAL (PRIMARY) HYPERTENSION Assessment/Plan see problem list dvt ppx
--- NOTE | 2018-12-29 17:06 | CONSULT ---
Consult - text type - Consultation Consultation Note: NEUROLOGY CONSULTATION is greatly appreciated: Events reviewed and discussed with Dr. Waldrop. This 73 yo RH woman with h/o HTN, Chol and chronic low back pain with LS spinal stenosis s/p LS laminectomy. Is maintained on: Amlodipine; Aspirin 81; Losartan; Metoprolol; Olanzapine 2.5 mg PO HS; and Simvastatin. Seen by me 06/11/16 for low back pain and unsteady gait worsened by UTI. An underlying OMS was already clearly present at that time. Now admitted with agitation, confusion and aggressive behavior. CT of head (reviewed): Moderately severe, diffuse atrophy with microvascular changes and left basal ganglia lacune. Labas are unremarkable including B12, TSH, T4 TAMICA: limited by patient cooperation but No bruits, cor reg, no evidence of external head trauma. NEURO: Awake, hyperalert, agitated.uncooperative. Ox [place]. Not [place], month or year. +Glabella CN: Full zaragoza and EOM's. No facial. gag ok No drift. Moves all fours well with increased tone in legs. Formal muscle testing not allowed. Areflexic in legs. No cogwheeling. Pt refuses sensory testing with flavor of paranoia about tuning fork. Pt. Refuses gait testing. IMP: No obvious focality. B/L cerebral dysfunction (OMS) has clearly progressed sine 05/28 and is most c/w Alzheimer's disease (AD). Psychotic features with paranoia and agitation. SUGGEST: Rx agitation and psychosis as per Dr. Waldrop. Caution as underlying, chronic, ataxia will worsen with increasing doses of neuroleptics. When patient is more manageable, would add Donepezil 5 mg after breakfast. Observe sleep patterns. Thank you very much, Flip Conte MD
--- NOTE | 2018-12-29 17:13 | CON.PSY ---
Psychiatry Consult Chief Complaint: 73 Nicole old female with Dementia with ? hallucinations and delusions and aggressive Behaviour seen for Psych Eval. Case discussed with staff. Symptoms: reports: Inability to Control Temper, Aggressivity, Hallucinations, Paranoia - Previous Psychiatric Treatment Outpatient: None Inpatient: None - Previous Substance Abuse Treatment Outpatient: None Inpatient: None - Current Medications Current Medications: Active Medications Amlodipine Besylate (Norvasc -) 10 mg PO DAILY [facility] Aspirin (Ecotrin -) 81 mg PO DAILY [facility] Atorvastatin Calcium (Lipitor -) 20 mg PO HS [facility] Metoprolol Tartrate (Lopressor -) 50 mg PO DAILY [facility] Olanzapine (Zyprexa -) 5 mg PO BID NIKH[facility] - Allergies Allergies: Allergies Allergy/AdvReac Type Severity Reaction Status Date / Time No Known Allergies Allergy Verified 06/09/16 16:54 - Current Living Status Usual Living Arrangement: With Significant Other - Current Mental Status Evaluation Appearance: Well Groomed Attitude: Belligerent - Affect Affect: Constrictive Appropriateness: Not Appropriate - Mood Mood: Angry - Speech/Language Expressive: Delayed - Psychomotor Activity Psychomotor Activity: Agitated - Thought Process Thought Process: Circumstantial - Thought Content Type: Auditory Type: Persectory - Self Perception Self Perception: No Impairment - Cognition Attention: Diminished Orientation: Time Memory, Immediate Recall: Impaired Memory, Short Term: 1/3 Memory, Remote with Promptin/3 - Concentration Serial Sevens Intact: No Simple Calculations Intact: No - Abstraction Proverb Interpretation: Impaired Judgement: Moderately Impaired - Insight Insight: Impaired - Impulse Control Impulse Control: Moderately Impaired - Suicidal Ideation Suicidal Ideation: No - Homicidal Ideation Homicidal Ideation: No Assessment/Plan 1) increase Zyprexa 5mg po bid. 2) will follow.
[2018-12-29] MEDS: ATORVASTATIN CA 20 MG TABLET (FP) PO SCH (21:01)
[2018-12-29] MEDS: OLANZapine 5 MG TABLET PO SCH (21:01)
[2018-12-30] MEDS ORDERED: LORazepam 1 MG TABLET PO ONE (02:59)
[2018-12-30 08:39] LABS: HEMATOCRIT 33.7 % (32.4-45.2); HEMOGLOBIN 11.6 GM/dL (10.7-15.3); MCH 31.7 pg (25.7-33.7); MCHC 34.5 g/dl (32.0-36.0); MEAN CELL VOLUME 91.9 fl (80-96); MEAN PLT VOLUME 6.9 fl (7.5-11.1); PLATELET COUNT 273 K/MM3 (134-434); RBC 3.67 M/mm3 (3.60-5.2); RDW 13.3 % (11.6-15.6); WHITE BLOOD COUNT 6.8 K/mm3 (4.0-10.0)
[2018-12-30 08:46] LABS: ALBUMIN 3.3 g/dl (3.4-5.0); BILIRUBIN,TOTAL 0.9 mg/dL (0.2-1); BLOOD UREA NITROGEN 19.4 mg/dL (7-18); CREATININE 0.8 mg/dL (0.55-1.3); POTASSIUM 4.1 mmol/L (3.5-5.1); TOT PROT 6.3 g/dl (6.4-8.2)
[2018-12-30] MEDS: METOPROLOL TARTRATE 50 MG TABLET (FP) PO SCH (10:14)
[2018-12-30] MEDS: OLANZapine 5 MG TABLET PO SCH ×2 (10:14→21:19)
[2018-12-30] MEDS: ASPIRIN COATED 81 MG TABLET.EC PO SCH (10:14)
[2018-12-30] MEDS: amLODIPine BESYLATE 10 MG TABLET (FP) PO SCH (10:14)
--- NOTE | 2018-12-30 11:50 | PN ---
Progress Note, Physician - Current Medication List Current Medications: Active Medications Amlodipine Besylate (Norvasc -) 10 mg PO DAILY [facility] Last Admin: 12/30/18 10:14 Dose: 10 mg Aspirin (Ecotrin -) 81 mg PO DAILY [facility] Last Admin: 12/30/18 10:14 Dose: 81 mg Atorvastatin Calcium (Lipitor -) 20 mg PO HS [facility] Last Admin: 12/29/18 21:01 Dose: 20 mg Metoprolol Tartrate (Lopressor -) 50 mg PO DAILY [facility] Last Admin: 12/30/18 10:14 Dose: 50 mg Olanzapine (Zyprexa -) 5 mg PO BID [facility] Last Admin: 12/30/18 10:14 Dose: 5 mg - Objective Vital Signs: Vital Signs Temperature 98.1 F 12/30/18 10:15 Pulse Rate 89 12/30/18 10:15 Respiratory Rate 19 12/30/18 10:15 Blood Pressure 135/53 L 12/30/18 10:15 O2 Sat by Pulse Oximetry (%) 98 12/30/18 09:00 Cardiovascular: Yes: Regular Rate and Rhythm Respiratory: Yes: Regular, CTA Bilaterally Gastrointestinal: Yes: Normal Bowel Sounds, Soft Labs: CBC, BMP 12/30/18 07:28 12/30/18 07:28 INR, PTT INR 1.04 (0.83-1.09) 12/28/18 14:28 Assessment/Plan - Problems (1) Altered mental status Assessment/Plan: -Zyprexa BID -Neurology and Psych consult -MRI of Brain - pending -Head CT scan shows mild periventricular chronic microvascular ischemic changes Code(s): R41.82 - ALTERED MENTAL STATUS, UNSPECIFIED Qualifiers: Altered mental status type: unspecified Qualified Code(s): R41.82 - Altered mental status, unspecified (2) Hypertension Assessment/Plan: -Norvasc, Metoprolol -low Na diet Code(s): I10 - ESSENTIAL (PRIMARY) HYPERTENSION
[2018-12-30] MEDS ORDERED: LORazepam 2 MG/ML SDV VIAL IVPUSH ONE (14:06)
[2018-12-30] MEDS: ATORVASTATIN CA 20 MG TABLET (FP) PO SCH (21:19)
[2018-12-30] MEDS: LORazepam 2 MG/ML SDV VIAL IM PRN (21:19)
[2018-12-31] MEDS: OLANZapine 5 MG TABLET PO SCH ×2 (09:40→21:01)
[2018-12-31] MEDS: METOPROLOL TARTRATE 50 MG TABLET (FP) PO SCH (09:40)
[2018-12-31] MEDS: ASPIRIN COATED 81 MG TABLET.EC PO SCH (09:40)
[2018-12-31] MEDS: amLODIPine BESYLATE 10 MG TABLET (FP) PO SCH (09:40)
--- NOTE | 2018-12-31 11:26 | PN ---
Progress Note, Physician History of Present Illness: periods of anxiety and agitation mainly at night-responding to benzo - Current Medication List Current Medications: Active Medications Amlodipine Besylate (Norvasc -) 10 mg PO DAILY [facility] Last Admin: 12/31/18 09:40 Dose: 10 mg Aspirin (Ecotrin -) 81 mg PO DAILY [facility] Last Admin: 12/31/18 09:40 Dose: 81 mg Atorvastatin Calcium (Lipitor -) 20 mg PO HS [facility] Last Admin: 12/30/18 21:19 Dose: 20 mg Lorazepam (Ativan Injection -) 0.5 mg IM Q6H PRN PRN Reason: ANXIETY Last Admin: 12/30/18 21:19 Dose: 0.5 mg Metoprolol Tartrate (Lopressor -) 50 mg PO DAILY [facility] Last Admin: 12/31/18 09:40 Dose: 50 mg Olanzapine (Zyprexa -) 5 mg PO BID [facility] Last Admin: 12/31/18 09:40 Dose: 5 mg - Objective Vital Signs: Vital Signs Temperature 98.2 F 12/31/18 08:00 Pulse Rate 81 12/31/18 08:00 Respiratory Rate 18 12/31/18 09:00 Blood Pressure 152/66 12/31/18 08:00 O2 Sat by Pulse Oximetry (%) 98 12/31/18 09:00 Cardiovascular: Yes: Regular Rate and Rhythm Respiratory: Yes: Regular, CTA Bilaterally Gastrointestinal: Yes: Normal Bowel Sounds, Soft Neurological: Yes: Alert, Oriented Labs: CBC, BMP 12/30/18 07:28 12/30/18 07:28 INR, PTT INR 1.04 (0.83-1.09) 12/28/18 14:28 Problem List - Problems (1) OBS (organic brain syndrome) Assessment/Plan: -Zyprexa BID -Neurology IMP: No obvious focality. B/L cerebral dysfunction (OMS) has clearly progressed sine 05/28 and is most c/w Alzheimer's disease (AD). Psychotic features with paranoia and agitation. SUGGEST: Rx agitation and psychosis as per Dr. Waldrop. Caution as underlying, chronic, ataxia will worsen with increasing doses of neuroleptics. When patient is more manageable, would add Donepezil 5 mg after breakfast. Observe sleep patterns. -Psych consult -[facility] 12/28/18 22:15 Urine - Urine Clean Catch Urine Culture - Final Normal Urogenital Cleo -Head CT scan shows mild periventricular chronic microvascular ischemic changes -add clonazepam prn Code(s): F09 - UNSP MENTAL DISORDER DUE TO KNOWN PHYSIOLOGICAL CONDITION (2) Altered mental status Assessment/Plan: as above Code(s): R41.82 - ALTERED MENTAL STATUS, UNSPECIFIED Qualifiers: Altered mental status type: unspecified Qualified Code(s): R41.82 - Altered mental status, unspecified (3) Hypertension Assessment/Plan: -Norvasc, Metoprolol -low Na diet Code(s): I10 - ESSENTIAL (PRIMARY) HYPERTENSION
[2018-12-31] MEDS: ESCITALOPRAM OXALATE 10 MG TABLET (FP) PO SCH (13:38)
[2018-12-31] MEDS: clonazePAM 0.5 MG TABLET PO PRN ×2 (14:25→20:42)
[2018-12-31] MEDS: LORazepam 2 MG/ML SDV VIAL IM PRN (14:57)
[2018-12-31] MEDS: ATORVASTATIN CA 20 MG TABLET (FP) PO SCH (21:01)
[2019-01-01] MEDS ORDERED: LORazepam 2 MG/ML SDV VIAL IM ONE (00:38)
--- NOTE | 2019-01-01 11:45 | PN ---
Progress Note, Physician Chief Complaint: AMS History of Present Illness: Previous notes and events reviewed awake and alert NAD patient more lethargic this morning, difficulty ambulating and noted with denies chest pain or SOB - Current Medication List Current Medications: Active Medications Amlodipine Besylate (Norvasc -) 10 mg PO DAILY [facility] Last Admin: 12/31/18 09:40 Dose: 10 mg Aspirin (Ecotrin -) 81 mg PO DAILY [facility] Last Admin: 12/31/18 09:40 Dose: 81 mg Atorvastatin Calcium (Lipitor -) 20 mg PO HS [facility] Last Admin: 12/31/18 21:01 Dose: 20 mg Clonazepam (Klonopin -) 0.5 mg PO BID PRN PRN Reason: ANXIETY Last Admin: 12/31/18 20:42 Dose: 0.5 mg Escitalopram Oxalate (Lexapro -) 5 mg PO DAILY [facility] Last Admin: 12/31/18 13:38 Dose: 5 mg Metoprolol Tartrate (Lopressor -) 50 mg PO DAILY [facility] Last Admin: 12/31/18 09:40 Dose: 50 mg Olanzapine (Zyprexa -) 5 mg PO BID [facility] Last Admin: 12/31/18 21:01 Dose: 5 mg - Objective Vital Signs: Vital Signs Temperature 97.5 F L 12/31/18 20:00 Pulse Rate 77 12/31/18 20:00 Respiratory Rate 17 12/31/18 21:00 Blood Pressure 127/61 12/31/18 20:00 O2 Sat by Pulse Oximetry (%) 96 12/31/18 21:00 Labs: CBC, BMP 12/30/18 07:28 12/30/18 07:28 INR, PTT INR 1.04 (0.83-1.09) 12/28/18 14:28 Problem List - Problems (1) Altered mental status Code(s): R41.82 - ALTERED MENTAL STATUS, UNSPECIFIED Qualifiers: Altered mental status type: unspecified Qualified Code(s): R41.82 - Altered mental status, unspecified (2) Hypertension Code(s): I10 - ESSENTIAL (PRIMARY) HYPERTENSION
[2019-01-01] MEDS: amLODIPine BESYLATE 10 MG TABLET (FP) PO SCH (12:12)
[2019-01-01] MEDS: METOPROLOL TARTRATE 50 MG TABLET (FP) PO SCH (12:12)
[2019-01-01] MEDS: ASPIRIN COATED 81 MG TABLET.EC PO SCH (12:13)
[2019-01-01] MEDS: OLANZapine 5 MG TABLET PO SCH ×2 (12:13→21:14)
[2019-01-01] MEDS: ESCITALOPRAM OXALATE 10 MG TABLET (FP) PO SCH (12:15)
--- NOTE | 2019-01-01 13:36 | DS ---
Physical Examination Vital Signs: Vital Signs Temperature 98 F 01/01/19 11:00 Pulse Rate 104 H 01/01/19 11:00 Respiratory Rate 19 01/01/19 11:00 Blood Pressure 155/79 01/01/19 11:00 O2 Sat by Pulse Oximetry (%) 99 01/01/19 09:00 Findings/Remarks: Active Medications Generic Name Dose Route Start Last Admin Trade Name Freq PRN Reason Stop Dose Admin Amlodipine Besylate 10 mg 12/30/18 10:00 01/01/19 12:12 Norvasc - PO 10 mg DAILY [facility]IL Administration Aspirin 81 mg 12/30/18 10:00 01/01/19 12:13 Ecotrin - PO 81 mg DAILY [facility]IL Administration Atorvastatin Calcium 20 mg 12/29/18 22:00 12/31/18 21:01 Lipitor - PO 20 mg HS [facility]IL Administration Clonazepam 0.5 mg 12/31/18 12:49 12/31/18 20:42 Klonopin - PO 0.5 mg BID PRN Administration ANXIETY Escitalopram Oxalate 5 mg 12/31/18 13:00 01/01/19 12:15 Lexapro - PO 5 mg DAILY [facility]IL Administration Metoprolol Tartrate 50 mg 12/30/18 10:00 01/01/19 12:12 Lopressor - PO 50 mg DAILY [facility] Administration Olanzapine 5 mg 12/29/18 22:00 01/01/19 12:13 Zyprexa - PO 5 mg BID [facility]IL Administration Microbiology 12/28/18 22:15 Urine - Urine Clean Catch Urine Culture - Final Normal Urogenital Cleo Constitutional: Yes: No Distress, Calm Eyes: Yes: Conjunctiva Clear HENT: Yes: Atraumatic Cardiovascular: Yes: Regular Rate and Rhythm Respiratory: Yes: Regular, CTA Bilaterally Gastrointestinal: Yes: Normal Bowel Sounds, Soft Musculoskeletal: Yes: Muscle Weakness Extremities: Yes: WNL Edema: No Neurological: Yes: Alert, Oriented Psychiatric: Yes: Alert, Oriented Labs: CBC, BMP 12/30/18 07:28 12/30/18 07:28 Discharge Summary Problems reviewed: Yes Reason For Visit: AMS Current Active Problems Altered mental status (Acute) OBS (organic brain syndrome) (Acute) Hospital Course: Patient is a 73 year old female with history of hypertension presents from home with complaint of visual hallucinations. As per family, patient has been endorsing visual hallucinations of people walking around the room when no one is there. Patient has been noted to have conversations while no one else is in the room. Symptoms have been ongoing for the past week. Noted that patient had similar presentation with negative workup two years ago. Patient was seen by physician last week for urinary tract infection, however reported that she was not compliant with outpatient antibiotic course. Patient denies acute complaints of headache, changes in vision, chest pain, palpitations, abdominal pain, nausea, vomiting. Head CT scan shows no intracranial pathology. Evaluated by Neurology and Psychiatry while in patient. Patient offered SNF for discharge and family refused. Patient will be discharged home with Home Care [facility]. Condition: Stable - Instructions Diet, Activity, Other Instructions: Follow up with PMD in 1 week follow up with Neurologist Dr Conte follow up with Psychiatrist Dr Waldrop continue with medication as prescribed return to ER if AMS, chest pain, respiratory distress Referrals: Pretty Waldrop MD [Staff Physician] - Flip Conte MD [Staff Physician] - Claudio Pat MD [Primary Care Provider] - Disposition: VNS/HOME HEALTH CARE - Home Medications Comprehensive Discharge Medication List: Ambulatory Orders Amlodipine Besylate 10 mg PO DAILY 12/28/18 Aspirin [Aspirin EC] 81 mg PO DAILY 12/28/18 Losartan Potassium 100 mg PO DAILY 12/28/18 Metoprolol Tartrate [Lopressor -] 50 mg PO DAILY 12/28/18 Olanzapine [Zyprexa -] 2.5 mg PO HS 12/28/18 Simvastatin 40 mg PO HS 12/28/18 Escitalopram Oxalate [Lexapro -] 5 mg PO DAILY #30 tablet 01/01/19 Olanzapine [Zyprexa -] 5 mg PO BID #60 tablet 01/01/19 clonazePAM [Klonopin -] 0.5 mg PO BID PRN #14 tablet MDD 2 01/01/19
--- NOTE | 2019-01-01 19:04 | CON.PSL ---
Psychology Consult Consult Specialty:: Clinical Psychology History Provided By: Patient, Medical Record, Caregiver Limitations to Obtaining History: Uncooperative (Patient would not respond to questions on her MSE. However, she denied thoughts of self harm.) Current Medications: Active Medications Amlodipine Besylate (Norvasc -) 10 mg PO DAILY [facility] Last Admin: 01/01/19 12:12 Dose: 10 mg Aspirin (Ecotrin -) 81 mg PO DAILY [facility] Last Admin: 01/01/19 12:13 Dose: 81 mg Atorvastatin Calcium (Lipitor -) 20 mg PO HS [facility] Last Admin: 12/31/18 21:01 Dose: 20 mg Clonazepam (Klonopin -) 0.5 mg PO BID PRN PRN Reason: ANXIETY Last Admin: 12/31/18 20:42 Dose: 0.5 mg Escitalopram Oxalate (Lexapro -) 5 mg PO DAILY [facility] Last Admin: 01/01/19 12:15 Dose: 5 mg Metoprolol Tartrate (Lopressor -) 50 mg PO DAILY [facility] Last Admin: 01/01/19 12:12 Dose: 50 mg Olanzapine (Zyprexa -) 5 mg PO BID [facility] Last Admin: 01/01/19 12:13 Dose: 5 mg Allergies: Allergies Allergy/AdvReac Type Severity Reaction Status Date / Time No Known Allergies Allergy Verified 06/09/16 16:54 Does patient have pain?: No (Denied any pain.) Current Medical Exam-Psy Expressive: Delayed (She would not respond without prompting. Even when attempting to have her answer questions as to the setting she was in, she refused to specify or did not know.) Receptive: Delayed Receptive Comprehension Thought Process: [place] (Her responses were unusal. whe told that she may be going home, she appeared agitated and indicated she did not want to leave. The patient was asked why she wanted to stay and she responded that she "was sick.") Support System: Family Problem List - Problem (1) Anxiety about health Code(s): F41.8 - OTHER SPECIFIED ANXIETY DISORDERS Assessment/Plan Although it was difficult to perform a detailed MSE on this patient, it appears that she experiences an altered mental state with some anxiety. During the examination, she became increasingly agitated but not combatative. Her hx of lashing out at others was not evident during this evaluation. As mentioned before, she stated that she would not want to or hurt herself. She does not appear to be a danger to others as long as she has someone to stay with her and use soothing approaches (meditative music and calming words). Outpatient treatment with Dr. Waldrop is also recommended.
[2019-01-01] MEDS: clonazePAM 0.5 MG TABLET PO PRN (21:14)
[2019-01-01] MEDS: ATORVASTATIN CA 20 MG TABLET (FP) PO SCH (21:14)
[2019-01-02] MEDS ORDERED: LORazepam 2 MG/ML SDV VIAL IM ONE ×2 (02:32→10:33)
[2019-01-02] MEDS ORDERED: LORazepam 2 MG/ML SDV VIAL ONE (02:38)
[2019-01-02] MEDS: OLANZapine 5 MG TABLET PO SCH (11:04)
[2019-01-02] MEDS: METOPROLOL TARTRATE 50 MG TABLET (FP) PO SCH (11:04)
[2019-01-02] MEDS: clonazePAM 0.5 MG TABLET PO PRN (11:05)
[2019-01-02] MEDS: ESCITALOPRAM OXALATE 10 MG TABLET (FP) PO SCH (11:05)
[2019-01-02] MEDS: ASPIRIN COATED 81 MG TABLET.EC PO SCH (11:05)
[2019-01-02] MEDS: amLODIPine BESYLATE 10 MG TABLET (FP) PO SCH (11:06)
[2019-01-02 13:38] VITALS: BP 137/73; PULSE 85; TEMP 97.8
--- NOTE | 2019-01-02 15:16 | PN ---
Progress Note, Physician Chief Complaint: AMS History of Present Illness: Previous notes and events reviewed sleeping NAD patient was agitated, physically comabtive and aggressive earlier and condition 10 was called, received Ativan 0.5mg IM x dose evaluated by psychology on 01/01 patient will be discharged to SNF today - Current Medication List Current Medications: Active Medications Amlodipine Besylate (Norvasc -) 10 mg PO DAILY [facility] Last Admin: 01/02/19 11:06 Dose: 10 mg Aspirin (Ecotrin -) 81 mg PO DAILY [facility] Last Admin: 01/02/19 11:05 Dose: 81 mg Atorvastatin Calcium (Lipitor -) 20 mg PO HS [facility] Last Admin: 01/01/19 21:14 Dose: 20 mg Clonazepam (Klonopin -) 0.5 mg PO BID PRN PRN Reason: ANXIETY Last Admin: 01/02/19 11:05 Dose: 0.5 mg Escitalopram Oxalate (Lexapro -) 5 mg PO DAILY [facility] Last Admin: 01/02/19 11:05 Dose: 5 mg Metoprolol Tartrate (Lopressor -) 50 mg PO DAILY [facility] Last Admin: 01/02/19 11:04 Dose: 50 mg Olanzapine (Zyprexa -) 5 mg PO BID [facility] Last Admin: 01/02/19 11:04 Dose: 5 mg - Objective Vital Signs: Vital Signs Temperature 97.8 F 01/02/19 10:35 Pulse Rate 85 01/02/19 10:35 Respiratory Rate 20 01/02/19 10:35 Blood Pressure 137/73 01/02/19 10:35 O2 Sat by Pulse Oximetry (%) 99 01/02/19 09:00 Constitutional: Yes: Other (sleeping) Eyes: Yes: Conjunctiva Clear HENT: Yes: Atraumatic Cardiovascular: Yes: Regular Rate and Rhythm Respiratory: Yes: Regular, CTA Bilaterally Gastrointestinal: Yes: Normal Bowel Sounds, Soft Musculoskeletal: Yes: WNL Extremities: Yes: WNL Edema: No Neurological: Yes: Other (sleeping) Psychiatric: Yes: Alert Labs: CBC, BMP 12/30/18 07:28 12/30/18 07:28 INR, PTT INR 1.04 (0.83-1.09) 12/28/18 14:28 Problem List - Problems (1) Altered mental status Code(s): R41.82 - ALTERED MENTAL STATUS, UNSPECIFIED Qualifiers: Altered mental status type: unspecified Qualified Code(s): R41.82 - Altered mental status, unspecified (2) Hypertension Code(s): I10 - ESSENTIAL (PRIMARY) HYPERTENSION Assessment/Plan see problem list dvt ppx patient to be discharged to SNF today
== END 2019-01-02 20:07 | DRG 56 ==
LOC: JER 13:54 → JERBED 16:21 → J6S 20:58
PROVIDERS: ADMIT Family Medicine; ATTEND Family Medicine
DX: G30.9 Alzheimer's disease, unspecified (principal); G93.41 Metabolic encephalopathy; R41.82 Altered mental status, unspecified; E78.5 Hyperlipidemia, unspecified; I10 Essential (primary) hypertension; F09 Unspecified mental disorder due to known physiological condition; F22 Delusional disorders
CPT/HCPCS: 36415; 70450-TC; 71045-TC-FY; 80053; 80307; 81003; 82550; 82607; 82746; 83735; 84100; 84439; 84443; 84484; 85025; 85027; 85610; 85651; 86140; 86593; 86850; 86900; 86901; 87086; 93005; 93010; 97116-GP; 97162-GP; 99283-25

== ENCOUNTER 2019-01-31 12:49 | Emergency (ER) | payer OTHER ==
[2019-01-31 13:13] VITALS: BMI 29.2
--- NOTE | 2019-01-31 13:23 | PDOC ---
History of Present Illness - General Chief Complaint: Vaginal Bleeding Stated Complaint: HEMATURIA Time Seen by Provider: 01/31/19 13:21 History Source: Patient Exam Limitations: Language Barrier - History of Present Illness Initial Comments: History obtained with help from czech speaking nurse and boiler control technician Veronica Kat is an czech only speaking 73 yo F w a pmh of HTN, HCL, borderline diabetes, obesity, chronic lumbar radiculopathy status post laminectomy of L3-L4 , performed by Neurosurgeon, Dr. Michael Tyson who presents to the [facility] er via EMS for [place] hematuria which started precipitously yesterday which is associated with dysuria and frequency but no fevers or abdominal pain. The patient states she was recently diagnosed with a urinary tract infection and was treated but is unsure of the date of infection or treatment she received. The patient states when she goes to the bathroom to urinate the toilet bowl is nothing but red. The detention was called and the staff states that she was recently started on heparin within the past week. The patient also endorses right leg swelling, erythema and pain without any left leg abnormalities. Patient denies any chest pain, SOB, difficulty breathing, recent infections, headache, nausea, vomiting, lightheadedness, syncope, palpitations, blurry vision, back or abdominal pain. PCP: Dr. Pat PSH: laminectomy of L3-L4 Allergies: NKA, NKDA Social Hx: Resident of [facility] Past History - Past Medical History Allergies/Adverse Reactions: Allergies Allergy/AdvReac Type Severity Reaction Status Date / Time No Known Allergies Allergy Verified 01/31/19 12:55 Home Medications: Ambulatory Orders Aspirin [Aspirin EC] 81 mg PO DAILY 12/28/18 Metoprolol Tartrate [Lopressor -] 50 mg PO DAILY 12/28/18 Simvastatin 40 mg PO HS 12/28/18 Olanzapine [Zyprexa -] 5 mg PO BID #60 tablet 01/01/19 Acetaminophen [Tylenol] 650 mg PO Q6H 01/31/19 Ascorbic Acid/Ascorbate Sodium [Vit C-Montserrat Hips 500 mg Chew Tb] 500 mg PO DAILY 01/31/19 Cephalexin Monohydrate [Keflex -] 500 mg PO BID 7 Days #13 capsule 01/31/19 Clonazepam 1 mg PO HS 01/31/19 Ferrous Sulfate [Iron] 325 mg PO DAILY 01/31/19 Furosemide [Lasix] 40 mg PO DAILY 01/31/19 Heparin Sodium,Porcine/Pf [Heparin Sod 5,000 Unit/ml Syrg] 5,000 unit IJ BID Nebivolol HCl [Bystolic] 10 mg PO DAILY 01/31/19 Valsartan 320 mg PO DAILY 01/31/19 clonazePAM [Klonopin -] 0.5 mg PO AM MDD 2 01/31/19 Anemia: No Asthma: No Cancer: No Cardiac Disorders: No CVA: No COPD: No CHF: No Dementia: No Diabetes: Yes ("BORDERLINE, NO MEDICATIONS.") GI Disorders: No Disorders: No HTN: Yes Hypercholesterolemia: Yes Liver Disease: No Seizures: No Thyroid Disease: No - Immunization History Immunization Up to Date: No - Psycho Social/Smoking Cessation Hx Smoking History: Never smoked Have you smoked in the past 12 months: No Hx Alcohol Use: No Drug/Substance Use Hx: No Substance Use Type: None Hx Substance Use Treatment: No Review of Systems - Review of Systems Able to Perform ROS?: Yes Comments:: CONSTITUTIONAL: Absent: fever, no chills, no fatigue EYES: Absent: visual changes ENT: Absent: ear pain, no sore throat CARDIOVASCULAR: Absent: chest pain, no palpitations RESPIRATORY: Absent: cough, no SOB GI: Absent: abdominal pain, no nausea, no vomiting, no constipation, no diarrhea GENITOURINARY: Present: dysuria, hematuria, frequency MUSKULOSKELETAL: Absent: back pain, no arthralgia, no myalgia SKIN: Absent: rash NEURO: Absent: headache *Physical Exam - Vital Signs Last Vital Signs Temp Pulse Resp BP Pulse Ox 97.4 F L 62 16 146/55 L 98 01/31/19 12:59 01/31/19 12:59 01/31/19 12:59 01/31/19 12:59 01/31/19 12:59 - Physical Exam Comments: GENERAL: Mildly pale appearing. Well-nourished. No apparent distress. HEENT: Normocephalic, atraumatic. PERRL, EOM intact. CARDIOVASCULAR: Normal S1, S2. Regular rate and rhythm. PULMONARY: No evidence of respiratory distress. Lungs clear to auscultation bilaterally. No wheezing, rales or rhonchi. ABDOMEN: There are rashes from heparin on her lower abdomen. Soft, non-distended, non- tender. No CVA tenderness. EXTREMITIES: The right leg is mildly swollen compared to the left with 1+ edema. There is a positive darin sign on the right. Minimal calf erythema. Normal ROM in all four extremities. SKIN: Warm, dry. No rash NEUROLOGICAL: No focal neurological deficits. ED Treatment Course - LABORATORY CBC & Chemistry Diagram: 01/31/19 14:15 01/31/19 13:40 - RADIOLOGY Radiograph Interpretation: Duplex DVT: HISTORY PROVIDED: Pain and swelling right lower extremity. Real time and doppler evaluation of the right lower extremity demonstrates the following: There is no evidence of deep venous thrombosis within the common, deep and superficial femoral veins, as well as the popliteal and posterior tibial veins. The greater saphenous vein is also patent. These veins are fully compressible, as well. There is a Kumar's cyst within the right popliteal fossa which measures 3.5 x 2.0 x 2.3 cm. IMPRESSION: 1. No evidence of deep venous thrombosis. 2. Kumar's cyst. Pelvic US + TVUS: HISTORY PROVIDED: Hematuria. Real time examination of the pelvis utilizing both the transabdominal and transvaginal probes demonstrates the following: The uterus is normal in size measuring 3.5 x 3.3 x 2.0 cm. There is a calcified uterine mass consistent with a leiomyoma. This fibroid measures 2.4 x 2.2 x 1.6 cm. A heterogeneous endometrium of 6 mm thickness is identified. The ovaries could not be identified. There is no evidence of adnexal masses or free pelvic fluid collections. Evaluation of the urinary bladder demonstrates no evidence of bladder masses or significant abnormalities. A prevoid bladder volume of 201 cc was calculated. Bilateral ureteral jets are visualized. IMPRESSION: 1. Calcified uterine fibroid. 2. Heterogeneous endometrium. 3. No evidence of bladder mass or acute abnormalities. Please see above discussion. CTAP: HISTORY PROVIDED: Rule out malignancy. Sequential axial images were obtained from the domes of the diaphragms through the symphysis pubis following the administration of intravenous contrast material. Evaluation of the lung bases demonstrates groundglass opacification diffusely with trace bilateral pleural effusions. The heart is enlarged and this appearance may be related to mild congestion. Clinical correlation is advised. The liver is enlarged measuring 22.2 cm in craniocaudad dimension. No intrahepatic masses are identified. The spleen is also mildly enlarged measuring 12.5 cm. The pancreas, adrenal glands and kidneys demonstrate no significant abnormalities. The gallbladder is clear. There is no evidence of intra-abdominal or retroperitoneal lymphadenopathy or fluid collections. There is no evidence of pneumoperitoneum, bowel obstruction or intra-abdominal abscess. There is no CT evidence of acute appendicitis or diverticulitis. Examination of the pelvis demonstrates a thick-walled urinary bladder with mild perivesical inflammation. This appearance suggests cystitis. Clinical correlation is advised. There is a calcification within the uterus consistent with a leiomyoma. There is no evidence of pelvic masses, fluid collections or lymphadenopathy. There is no evidence of acute bony pathology. IMPRESSION: 1. Cardiomegaly, possible mild congestion and trace bilateral pleural effusions. 2. Hepatosplenomegaly. 3. Thickened urinary bladder with perivesical inflammation suggesting cystitis. 4. Fibroid uterus. Please see above discussion. Medical Decision Making - Medical Decision Making History obtained with help from czech speaking nurse and boiler control technician Veronica Kat is an czech only speaking 73 yo F w a pmh of HTN, HCL, borderline diabetes, obesity, chronic lumbar radiculopathy status post laminectomy of L3-L4 , performed by Neurosurgeon, Dr. Michael Tyson who presents to the [facility] er via EMS for [place] hematuria which started precipitously yesterday which is associated with dysuria and frequency but no fevers or abdominal pain. The patient states she was recently diagnosed with a urinary tract infection and was treated but is unsure of the date of infection or treatment she received. The patient states when she goes to the bathroom to urinate the toilet bowl is nothing but red. The detention was called and the staff states that she was recently started on heparin within the past week. The patient also endorses right leg swelling, erythema and pain without any left leg abnormalities. Patient denies any chest pain, SOB, difficulty breathing, recent infections, headache, nausea, vomiting, lightheadedness, syncope, palpitations, blurry vision, back or abdominal pain. Vital Signs Temp Pulse Resp BP Pulse Ox 97.4 F L 62 16 146/55 L 98 01/31/19 12:59 01/31/19 12:59 01/31/19 12:59 01/31/19 12:59 01/31/19 12:59 DDx IBNLT: UTI/Pylo, hematuria, uterine/bladder mass, uterine hyperplasia, DVT, anemia, thrombocytopenia, heparin induced thrombocytopenia Plan: cbc, cmp, pt/ptt, T&S, ua, uc, duplex DVT, TVUS, re-assess FDC: first urine was clear last week. Tuesday - burning, ua showed large trace blood, protein, and leukocytes. Ucx - is growing ecoli. Has not been taking any Abx. Patient has been taking heparin since 01/10 for prophylaxis. - ID sent culture to hospital and culture is alaniz sensitive to all Abx including keflex. UA: suggests patient has a UTI with possible hemorrhagic cystitis as well. CBC: no anemia or thrombocytopenia. CMP: Elevated BUN suggests patient is volume down - Will hydrate with 1L NS Spoke with Dr. Pat who requests that the patient receive a CTAP to rule out pelvic malignancy. CTAP: suggestive of cystitis - full report above. Given urinary culture which grew ecoli that is sensitive to keflex will give patient first dose here in ER then send a 7 day course to her pharmacy. Disposition: Back to detention with Abx Discharge - Discharge Information Problems reviewed: Yes Clinical Impression/Diagnosis: E. coli UTI (urinary tract infection) Hematuria Qualifiers: Hematuria type: gross Qualified Code(s): R31.0 - Gross hematuria Condition: Stable Disposition: HOME - Admission No - Additional Discharge Information Prescriptions: Cephalexin Monohydrate [Keflex -] 500 mg PO BID 7 Days #13 capsule - Follow up/Referral Referrals: Claudio Pat MD [Primary Care Provider] - - Patient Discharge Instructions Patient Printed Discharge Instructions: DI for Escherichia Coli Infection Additional Instructions: Please stop taking Heparin. You have a urinary tract infection for which we are sending antibiotics for you. We are sending an antibiotic to your pharmacy, please pick up man and take as described. Come back to the ER with any new or worsening concerns. Thank you for coming to the [facility] er, we hope you feel better soon! Print Language: FAROESE - Post Discharge Activity
[2019-01-31 14:29] LABS: BASO % 0.9 % (0-2.0); EOS % 2.7 % (0-4.5); HEMATOCRIT 33.3 % (32.4-45.2); LYMPH % 21.8 % (8-40); MCHC 33.1 g/dl (32.0-36.0); MEAN CELL VOLUME 93.6 fl (80-96); MONO % 8.8 % (3.8-10.2); NEUT % 65.8 % (42.8-82.8); PLATELET COUNT 246 K/MM3 (134-434); RBC 3.55 M/mm3 (3.60-5.2); RDW 14.3 % (11.6-15.6); WHITE BLOOD COUNT 7.8 K/mm3 (4.0-10.0)
[2019-01-31 14:31] LABS: EPI CELLS 3.4 /HPF (0-5/HPF); HYALINE CASTS 0 /lpf (0-8); PH,URINE 6.5 (5.0-8.0); URINE APPEARANCE TURBID; URINE BACTERIA 1882.2 /hpf (NEGATIVE); URINE BILIRUBIN NEGATIVE (NEGATIVE); URINE COLOR RED; URINE GLUCOSE (UA) NEGATIVE (NEGATIVE); URINE KETONE NEGATIVE (NEGATIVE); URINE LEUK ESTERASE 2+ (NEGATIVE); URINE NITRITE NEGATIVE (NEGATIVE); URINE PROTEIN 2+ (NEGATIVE); URINE RBC 3077 /hpf (0-4); URINE UROBILINOGEN 0.2 mg/dL (0.2-1.0); URINE WBC 16 /hpf (0-5)
[2019-01-31 14:36] LABS: INR 0.97 (0.83-1.09); PROTHROMBIN TIME (PATIENT) 11.4 SEC (9.7-13.0)
[2019-01-31 14:55] LABS: ALBUMIN 3.5 g/dl (3.4-5.0); CALCIUM 9.5 mg/dL (8.5-10.1); CREATININE 1.1 mg/dL (0.55-1.3); POTASSIUM 4.3 mmol/L (3.5-5.1); TOT PROT 7.1 g/dl (6.4-8.2)
[2019-01-31] MEDS ORDERED: SODIUM CHLORIDE 0.9% 500 ML INFUS.BAG IV ONE (15:14)
--- NOTE | 2019-01-31 17:25 | PDOC ---
Documentation entered by Naima Ochoa SCRIBE, acting as scribe for Young Salcedo MD. Young Salcedo MD: This documentation has been prepared by the Don willson Joy, SCRIBE, under my direction and personally reviewed by me in its entirety. I confirm that the documentation accurately reflects all work, treatment, procedures, and medical decision making performed by me. Attending Attestation - Resident Resident Name: Italo Lopes - ED Attending Attestation I have performed the following: I have examined & evaluated the patient, The case was reviewed & discussed with the resident, I agree w/resident's findings & plan, Exceptions are as noted - HPI HPI: 01/31/19 16:23 The patient is a 73 year old female with significant past medical history of hypertension and high cholesterol, chronic lumbar radiculopathy s/p laminectomy of L3-L4 (Neurosurgeon, Dr. Michael Tyson), borderline diabetes, and obesity who presents to the ED from [facility] for evaluation of vaginal bleeding vs. [place] hematuria for 2 days. The patient reports that when she went to the bathroom yesterday all she saw in the bowl was blood. She also notes right leg edema, erythema, and pain. Denies chest pain, dizziness, shortness of breath, headache, fever, chills, headache, abdominal pain, diarrhea, nausea, vomiting. Allergies: NKA - Physicial Exam PE: 01/31/19 16:24 agree with resident exam - Medical Decision Making 01/31/19 17:18 73yo F presents to the ED with hematuria as well as R leg edema With regards to hematuria, pt is on heparin as of recently for DVT ppx, so possible 2/2 anticoagulation +/- UTI She had a +UCx yesterday with e.coli sensitive to keflex per [facility] TVUS and bladder US with no masses, malignancy, pt is able to void without difficulty Case discussed with her PMD Dr. Pat, who recommends CTAP to r/o malignancy and also to stop heparin ppx. States he will update Dr. Mcconnell as he is the physician at her NH ([facility]) He recommends discharge back to [facility] if CTAP is w/o malignancy With regards to US, negative for DVT, reveals bakers cyst which is likely the cause of the edema. At this time, CTAP pending, will reassess. 01/31/19 18:00 Hgb 11 CTAP negative for malignancy, consistent with cystitis Pt to hold heparin as this is likely cause of bleeding She is able to void in the ED w/o clots, no difficulty. Antibiotics sent Pt is clinically stable for DC to [facility] Case discussed in detail with admitting physician including history, physical exam and ancillary studies. Admitting physician has assumed care for the patient, will follow all pending diagnostics and will complete the evaluation and treatment.
[2019-01-31] MEDS ORDERED: CEPHALEXIN MONOHYDRATE 500 MG CAPSULE (UD) PO ONE (17:57)
[2019-01-31] MEDS ORDERED: CEPHALEXIN MONOHYDRATE 500 MG CAPSULE (UD) ONE (18:22)
[2019-01-31 19:52] VITALS: BP 125/63; PULSE 70; TEMP 98.3
== END 2019-01-31 19:54 | disposition home or self-care (01) ==
LOC: JER 12:49
PROC: 3E0337Z Introduction of Electrolytic and Water Balance Substance into Peripheral Vein, Percutaneous Approach (ICD-10-PCS; principal; 2019-01-31)
DX: R31.0 Gross hematuria (principal); N39.0 Urinary tract infection, site not specified; I10 Essential (primary) hypertension; E78.00 Pure hypercholesterolemia, unspecified; R73.03 Prediabetes; E66.9 Obesity, unspecified; M54.16 Radiculopathy, lumbar region; G89.29 Other chronic pain
CPT/HCPCS: 36415; 74177-TC; 76830-TC; 76856-TC; 80053; 81003; 85025; 85610; 85730; 86850; 86900; 86901; 87086; 87186; 93971-TC; 96360; 99283-25

== ENCOUNTER 2019-02-24 17:05 | Inpatient (IN) | payer OTHER ==
--- NOTE | 2019-02-24 18:46 | PDOC ---
History of Present Illness - General Chief Complaint: Altered Mental Status Stated Complaint: SENT BY DOCTOR/ALTERED Time Seen by Provider: 02/24/19 17:45 History Source: Patient Exam Limitations: No Limitations - History of Present Illness Initial Comments: 02/24/19 20:02 73 yo female pmh HTN, HLD, chronic lumbar radiculopathy s/p laminectomy of L3- L4 (Neurosurgeon, Dr. Michael Tyson), borderline diabetes presents to ED for AMS. Pt daughter present, states she received a text from Dr. Pat for results of UTI, placed on Cipro for the past 3 days, however, over the last 2 days she has become very altered at home. Pt had recent admission and rehab stay for AMS related to UTI and daughter states this is very similar. Pt Past History - Past Medical History Allergies/Adverse Reactions: Allergies Allergy/AdvReac Type Severity Reaction Status Date / Time No Known Allergies Allergy Verified 02/24/19 17:24 Home Medications: Ambulatory Orders Aspirin [Aspirin EC] 81 mg PO DAILY 12/28/18 Metoprolol Tartrate [Lopressor -] 50 mg PO DAILY 12/28/18 Simvastatin 40 mg PO HS 12/28/18 Olanzapine [Zyprexa -] 5 mg PO BID #60 tablet 01/01/19 Acetaminophen [Tylenol] 650 mg PO Q6H 01/31/19 Ascorbic Acid/Ascorbate Sodium [Vit C-Montserrat Hips 500 mg Chew Tb] 500 mg PO DAILY 01/31/19 Cephalexin Monohydrate [Keflex -] 500 mg PO BID 7 Days #13 capsule 01/31/19 Clonazepam 1 mg PO HS 01/31/19 Ferrous Sulfate [Iron] 325 mg PO DAILY 01/31/19 Furosemide [Lasix] 40 mg PO DAILY 01/31/19 Heparin Sodium,Porcine/Pf [Heparin Sod 5,000 Unit/ml Syrg] 5,000 unit IJ BID Nebivolol HCl [Bystolic] 10 mg PO DAILY 01/31/19 Valsartan 320 mg PO DAILY 01/31/19 clonazePAM [Klonopin -] 0.5 mg PO AM MDD 2 01/31/19 Anemia: No Asthma: No Cancer: No Cardiac Disorders: No CVA: No COPD: No CHF: No Dementia: No Diabetes: Yes ("BORDERLINE, NO MEDICATIONS.") GI Disorders: No Disorders: No HTN: Yes Hypercholesterolemia: Yes Liver Disease: No Seizures: No Thyroid Disease: No - Immunization History Immunization Up to Date: No - Psycho Social/Smoking Cessation Hx Smoking History: Never smoked Have you smoked in the past 12 months: No Hx Alcohol Use: No Drug/Substance Use Hx: No Substance Use Type: None Hx Substance Use Treatment: No *Physical Exam - Vital Signs Last Vital Signs Temp Pulse Resp BP Pulse Ox 97.9 F 74 16 150/50 L 95 02/24/19 17:21 02/24/19 17:21 02/24/19 17:21 02/24/19 17:21 02/24/19 17:21 ED Treatment Course - LABORATORY CBC & Chemistry Diagram: 02/24/19 19:25 02/24/19 19:25 - RADIOLOGY Radiology Studies Ordered: Category Date Time Status CHEST X-RAY PORTABLE* [RAD] Stat Radiology 02/24/19 18:12 Ordered Medical Decision Making - Medical Decision Making 02/24/19 19:18 ada, daughter cell number [phone] 02/24/19 22:[address] Pat for AMS Pt on multiple psych medications including Klonipin, Olanzapine, mirtazipine Discharge - Discharge Information Problems reviewed: Yes Clinical Impression/Diagnosis: AMS (altered mental status) Condition: Stable - Admission Yes - Follow up/Referral Referrals: Claudio Pat MD [Primary Care Provider] - - Patient Discharge Instructions - Post Discharge Activity
[2019-02-24 19:41] LABS: URINE APPEARANCE CLEAR; URINE BILIRUBIN NEGATIVE (NEGATIVE); URINE COLOR YELLOW; URINE GLUCOSE (UA) NEGATIVE (NEGATIVE); URINE KETONE NEGATIVE (NEGATIVE); URINE LEUK ESTERASE NEGATIVE (NEGATIVE); URINE NITRITE NEGATIVE (NEGATIVE); URINE PROTEIN NEGATIVE (NEGATIVE); URINE UROBILINOGEN 0.2 mg/dL (0.2-1.0)
[2019-02-24 19:45] LABS: BASO % 0.9 % (0-2.0); EOS % 3.6 % (0-4.5); HEMATOCRIT 35.4 % (32.4-45.2); HEMOGLOBIN 11.7 GM/dL (10.7-15.3); LYMPH % 28.2 % (8-40); MCH 30.8 pg (25.7-33.7); MCHC 32.9 g/dl (32.0-36.0); MEAN CELL VOLUME 93.6 fl (80-96); MEAN PLT VOLUME 6.7 fl (7.5-11.1); MONO % 9.1 % (3.8-10.2); NEUT % 58.2 % (42.8-82.8); PLATELET COUNT 220 K/MM3 (134-434); RBC 3.78 M/mm3 (3.60-5.2); RDW 13.9 % (11.6-15.6); WHITE BLOOD COUNT 6.1 K/mm3 (4.0-10.0)
--- NOTE | 2019-02-24 20:02 | PDOC ---
Attending Attestation - Resident Resident Name: Aftab Nunez - ED Attending Attestation I have performed the following: I have examined & evaluated the patient, The case was reviewed & discussed with the resident, I agree w/resident's findings & plan, Exceptions are as noted - HPI HPI: 02/24/19 20:04 Ms. Kat is a 73 yo F h/o HTN, HLD s/p recent admission to the hospital due to delirium Pt was thought to have a UTI She was seen by Neuro and Psych (recommended Zyprexa 5mg) PT returns to the ER today due to concerns about possible recurrent uti because of increasingly paranoid behaviour No fevers, no chills No abdominal pain - Physicial Exam PE: 02/24/19 20:01 GENERAL: The patient is in no acute distress. ENT: Ears normal, nares patent, oropharynx clear without exudates. Moist mucous membranes. NECK: Normal range of motion, supple LUNGS: Breath sounds equal, clear to auscultation bilaterally. No wheezes, and no crackles. HEART:Regular rate and rhythm, normal S1 and S2 without murmur, rub or gallop. ABDOMEN: Soft, nontender, normoactive bowel sounds. EXTREMITIES: Normal range of motion, no edema. NEUROLOGICAL: Cranial nerves II through XII grossly intact. Normal speech. No focal neurological deficits. SKIN: Warm, Dry, normal turgor, no rashes or lesions noted. - Medical Decision Making 02/24/19 20:05 Pt sent to the ER by PMD due to concerns about pt increasingly confused behaviour being caused by underlying infection Will do: Labs EKG UA Blood cultures 02/24/19 20:06 Laboratory Tests 02/24/19 02/24/19 19:06 19:25 WBC 6.1 Hgb 11.7 Hct 35.4 Plt Count 220 Urine Blood Negative Urine Nitrite Negative Ur Leukocyte Esterase Negative Pt to be admitted per PMD Clinical impression Altered Mental Status
[2019-02-24 20:28] LABS: ALBUMIN 3.2 g/dl (3.4-5.0); ALK PHOS 30 U/L (45-117); ANION GAP 7 MMOL/L (8-16); BILIRUBIN,TOTAL 0.9 mg/dL (0.2-1); BLOOD UREA NITROGEN 19.5 mg/dL (7-18); CALCIUM 9.2 mg/dL (8.5-10.1); CHLORIDE 108 mmol/L (98-107); CO2 28 mmol/L (21-32); CREATININE 0.8 mg/dL (0.55-1.3); GLUCOSE,RANDOM 172 mg/dL (74-106); POTASSIUM 4.4 mmol/L (3.5-5.1); SGOT/AST 19 U/L (15-37); SGPT/ALT 19 U/L (13-61); SODIUM 143 mmol/L (136-145); TOT PROT 6.7 g/dl (6.4-8.2)
--- NOTE | 2019-02-24 22:12 | HP ---
Admitting History and Physical - Primary Care Physician PCP: Dr. Pat - Admission Chief Complaint: AMS History of Present Illness: 73 year old female with significant past medical history of hypertension and high cholesterol, chronic lumbar radiculopathy s/p laminectomy of L3-L4 ( Neurosurgeon, Dr. Michael Tyson), borderline diabetes, and obesity who presents to the ED for AMS. Patient daughter present, states she received a text from Dr. Pat for results of UTI, placed on Cipro for the past 3 days, however, over the last 2 days she has become very altered at home. Last visit to ER was at the time was at [facility] for AMS related to UTI with similar symptoms. Brother at bedside, mentions patient has been weak with difficulty ambulating Denies chest pain, dizziness, shortness of breath, headache, fever, chills, headache, abdominal pain, diarrhea, nausea, vomiting. History Source: Family Member Limitations to Obtaining History: Clinical Condition, Poor Historian - Past Medical History [employer]ODUCTION GE[employer]: Yes: Alzheimer's Cardiovascular: Yes: HTN, Hyperlipdemia Musculoskeletal: Yes: Chronic low back pain Endocrine: Yes: Diabetes Mellitus - Past Surgical History Past Surgical History: Yes: Laminectomy (s/p laminectomy of L3-L4) - Smoking History Smoking history: Never smoked Have you smoked in the past 12 months: No - Alcohol/Substance Use Hx Alcohol Use: No History of Substance Use: reports: None - Social History Usual Living Arrangement: Yes: With Child ADL: Family Assistance History of Recent Travel: No Home Medications - Allergies Allergies/Adverse Reactions: Allergies Allergy/AdvReac Type Severity Reaction Status Date / Time No Known Allergies Allergy Verified 02/24/19 17:24 - Home Medications Home Medications: Ambulatory Orders Aspirin [Aspirin EC] 81 mg PO DAILY 12/28/18 Metoprolol Tartrate [Lopressor -] 50 mg PO DAILY 12/28/18 Simvastatin 40 mg PO HS 12/28/18 Olanzapine [Zyprexa -] 5 mg PO BID #60 tablet 01/01/19 Acetaminophen [Tylenol] 650 mg PO Q6H 01/31/19 Ascorbic Acid/Ascorbate Sodium [Vit C-[place] 500 mg Chew Tb] 500 mg PO DAILY 01/31/19 Cephalexin Monohydrate [Keflex -] 500 mg PO BID 7 Days #13 capsule 01/31/19 Clonazepam 1 mg PO HS 01/31/19 Ferrous Sulfate [Iron] 325 mg PO DAILY 01/31/19 Furosemide [Lasix] 40 mg PO DAILY 01/31/19 Heparin Sodium,Porcine/Pf [Heparin Sod 5,000 Unit/ml Syrg] 5,000 unit IJ BID Nebivolol HCl [Bystolic] 10 mg PO DAILY 01/31/19 Valsartan 320 mg PO DAILY 01/31/19 clonazePAM [Klonopin -] 0.5 mg PO AM MDD 2 01/31/19 Family Medical History Family History: Denies (brother denies at bedside ) Review of Systems Unable to obtain ROS, reason: AMS Physical Examination Vital Signs: Vital Signs Temperature 97.9 F 02/24/19 17:21 Pulse Rate 74 02/24/19 17:21 Respiratory Rate 16 02/24/19 17:21 Blood Pressure 150/50 L 02/24/19 17:21 O2 Sat by Pulse Oximetry (%) 99 02/24/19 18:45 Constitutional: Yes: No Distress, Calm Eyes: Yes: Conjunctiva Clear, EOM Intact HENT: Yes: Atraumatic, Normocephalic Neck: Yes: Supple, Trachea Midline Cardiovascular: Yes: Regular Rate and Rhythm Respiratory: Yes: Regular, CTA Bilaterally Gastrointestinal: Yes: Normal Bowel Sounds, Soft Musculoskeletal: Yes: WNL Extremities: Yes: WNL Edema: No Peripheral Pulses WNL: Yes Integumentary: Yes: WNL Neurological: Yes: Alert, Confusion Psychiatric: Yes: Alert Labs: CBC, BMP 02/24/19 19:25 02/24/19 19:25 Imaging - Results Chest X-ray: Report Reviewed (no acute infiltrate noted) Other: Report Reviewed (cbc,cmp not impressive) Problem List - Problems (1) Diabetes Code(s): E11.9 - TYPE 2 DIABETES MELLITUS WITHOUT COMPLICATIONS (2) Altered mental status Code(s): R41.82 - ALTERED MENTAL STATUS, UNSPECIFIED (3) Alzheimer disease Code(s): G30.9 - ALZHEIMER'S DISEASE, UNSPECIFIED; F02.80 - DEMENTIA IN OTH DISEASES CLASSD ELSWHR W/O BEHAVRL DISTURB (4) Hypertension Code(s): I10 - ESSENTIAL (PRIMARY) HYPERTENSION (5) Lipidemia Code(s): E78.5 - HYPERLIPIDEMIA, UNSPECIFIED (6) Lumbar radiculopathy, chronic Code(s): M54.16 - RADICULOPATHY, LUMBAR REGION Assessment/Plan 73 year old female with significant past medical history of hypertension and high cholesterol, chronic lumbar radiculopathy s/p laminectomy of L3-L4 ( Neurosurgeon, Dr. Michael Tyson), borderline diabetes, and obesity who presents to the ED for AMS. #AMS UTI vs multiple psych meds # Alzheimer's disease - recently completed 3 days po Cipro - UA negative, afebrile - CXR: no acute infiltrate - follow up urine cx - Continue with Olanzapine, mirtazipine - continue with Klonopin 0.5 mg QAM - continue with Clonazepam 1 mg PO HS - follow up psych in AM - consider neurology follow up - safety/fall precaution # HTN/HLD - Metoprolol Tartrate 50 mg PO DAILY - Simvastatin 40 mg PO HS - Valsartan 320 mg PO DAILY - Furosemide 40 mg PO DAILY - Monitor Bp ezequiel # pre-diabetes - diet controlled - FSBS QD AC #chronic lumbar radiculopathy - per daughter recently started on gabapentin 100mg tid - continue with tylenol Q6 PRN VTE: Heparin SQ TID Diet: THAI/ NCS Dispo:Med-surg Visit type - Emergency Visit Emergency Visit: Yes ED Registration Date: 02/24/19 Care time: The patient presented to the Emergency Department on the above date and was hospitalized for further evaluation of their emergent condition. - New Patient This patient is new to me today: Yes Date on this admission: 02/25/19 - Critical Care Critical Care patient: No
[2019-02-24] MEDS ORDERED: ACETAMINOPHEN 325 MG TABLET (FP) PO SCH (22:45)
[2019-02-24] MEDS ORDERED: ACETAMINOPHEN 325 MG TABLET (FP) ONE (22:55)
[2019-02-24] MEDS ORDERED: ACETAMINOPHEN 325 MG TABLET (FP) PO PRN (22:56)
[2019-02-25] MEDS ORDERED: LORazepam 2 MG/ML SDV VIAL IM ONE (04:11)
[2019-02-25] MEDS ORDERED: LORazepam 2 MG/ML SDV VIAL IM PRN (04:19)
[2019-02-25 05:29] VITALS: BMI 32.1
[2019-02-25] MEDS: clonazePAM 0.5 MG TABLET PO SCH (06:22)
[2019-02-25] MEDS: GABAPENTIN 100 MG CAPSULE (FP) PO SCH ×3 (06:22→23:59)
[2019-02-25] MEDS: HEPARIN NA (PORCINE) 5,000 UNITS/ML 1ML VIAL SQ SCH ×4 (06:22→23:58)
[2019-02-25 08:26] LABS: HEMATOCRIT 31.4 % (32.4-45.2); HEMOGLOBIN 10.7 GM/dL (10.7-15.3); MCH 31.3 pg (25.7-33.7); MEAN CELL VOLUME 92.1 fl (80-96); MEAN PLT VOLUME 6.6 fl (7.5-11.1); PLATELET COUNT 213 K/MM3 (134-434); RBC 3.41 M/mm3 (3.60-5.2); RDW 13.5 % (11.6-15.6); WHITE BLOOD COUNT 6.5 K/mm3 (4.0-10.0)
[2019-02-25 09:02] LABS: BLOOD UREA NITROGEN 17.9 mg/dL (7-18); CALCIUM 8.9 mg/dL (8.5-10.1); CREATININE 0.8 mg/dL (0.55-1.3); POTASSIUM 3.9 mmol/L (3.5-5.1)
--- NOTE | 2019-02-25 10:11 | EKG ---
Test Reason : Blood Pressure : / mmHG Vent. Rate : 067 BPM Atrial Rate : 067 BPM P-R Int : 148 ms QRS Dur : 080 ms QT Int : 426 ms P-R-T Axes : 024 015 024 degrees QTc Int : 450 ms NORMAL SINUS RHYTHM NORMAL ECG WHEN COMPARED WITH ECG OF 28-DEC-2018 14:10, BORDERLINE CRITERIA FOR INFERIOR INFARCT ARE NO LONGER PRESENT Confirmed by JOSUÉ SAHA MD ([id number]) on 02/25/2019 10:11:48 AM Referred By: Confirmed By:JOSUÉ SAHA MD
[2019-02-25] MEDS: FUROSEMIDE 40 MG TABLET (FP) PO SCH ×2 (10:42→11:41)
[2019-02-25] MEDS: METOPROLOL TARTRATE 50 MG TABLET (FP) PO SCH ×2 (10:42→11:37)
[2019-02-25] MEDS: VALSARTAN 160 MG TABLET (UD) PO SCH ×2 (10:42→11:37)
--- NOTE | 2019-02-25 11:07 | PN ---
Progress Note, Physician - Current Medication List Current Medications: Active Medications Acetaminophen (Tylenol -) 650 mg PO Q6H PRN PRN Reason: PAIN LEVEL 1-5 Atorvastatin Calcium (Lipitor -) 20 mg PO HS NIKHIL Clonazepam (Klonopin -) 0.5 mg PO AM [facility] Last Admin: 02/25/19 06:22 Dose: 0.5 mg Clonazepam (Klonopin -) 1 mg PO HS NIKHIL Furosemide (Lasix -) 40 mg PO DAILY [facility] Gabapentin (Neurontin -) 100 mg PO TID [facility] Last Admin: 02/25/19 06:22 Dose: 100 mg Heparin Sodium (Porcine) (Heparin -) 5,000 unit SQ TID [facility] Last Admin: 02/25/19 06:35 Dose: Not Given Lorazepam (Ativan Injection -) 1 mg IM BID PRN PRN Reason: ANXIETY Metoprolol Tartrate (Lopressor -) 50 mg PO DAILY [facility] Valsartan (Diovan -) 320 mg PO DAILY [facility] - Objective Vital Signs: Vital Signs Temperature 97.3 F L 02/25/19 06:00 Pulse Rate 86 02/25/19 06:00 Respiratory Rate 20 02/25/19 06:00 Blood Pressure 154/80 02/25/19 06:00 O2 Sat by Pulse Oximetry (%) 96 02/25/19 06:00 Cardiovascular: Yes: S1, S2 Respiratory: Yes: Regular, CTA Bilaterally Gastrointestinal: Yes: Normal Bowel Sounds, Soft Neurological: Yes: Alert, Confusion Labs: CBC, BMP 02/25/19 07:50 02/25/19 07:50 Problem List - Problems (1) UTI (urinary tract infection) Assessment/Plan: recently completed 3 days po Cipro - UA negative, afebrile - follow up urine cx -Abx per id Code(s): N39.0 - URINARY TRACT INFECTION, SITE NOT SPECIFIED (2) Alzheimer disease Assessment/Plan: - Continue with Olanzapine, mirtazipine - continue with Klonopin 0.5 mg QAM - continue with Clonazepam 1 mg PO HS - follow up psych - safety/fall precaution Code(s): G30.9 - ALZHEIMER'S DISEASE, UNSPECIFIED; F02.80 - DEMENTIA IN OTH DISEASES CLASSD ELSWHR W/O BEHAVRL DISTURB (3) Diabetes Assessment/Plan: bgm Code(s): E11.9 - TYPE 2 DIABETES MELLITUS WITHOUT COMPLICATIONS
--- NOTE | 2019-02-25 12:25 | PN ---
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
[2019-02-25] MEDS ORDERED: clonazePAM 0.5 MG TABLET PO SCH (22:00)
[2019-02-25] MEDS: ATORVASTATIN CA 20 MG TABLET (FP) PO SCH (23:59)
[2019-02-26] MEDS: GABAPENTIN 100 MG CAPSULE (FP) PO SCH ×3 (06:55→23:17)
[2019-02-26] MEDS: clonazePAM 0.5 MG TABLET PO SCH (06:56)
[2019-02-26] MEDS: HEPARIN NA (PORCINE) 5,000 UNITS/ML 1ML VIAL SQ SCH ×3 (06:59→23:21)
--- NOTE | 2019-02-26 11:00 | CON.PSY ---
Psychiatry Consult Chief Complaint: 73 Yewra old female admitted for acute AMS. History of Radiculopathy, s/p Laminectomy. Placed in Rehab and had UTI frequently. seen fopr Psych evaluation. Symptoms: reports: Memory Impairment, Attention Deficit - Previous Psychiatric Treatment Outpatient: None Inpatient: None - Previous Substance Abuse Treatment Outpatient: None Inpatient: None - Current Medications Current Medications: Active Medications Acetaminophen (Tylenol -) 650 mg PO Q6H PRN PRN Reason: PAIN LEVEL 1-5 Atorvastatin Calcium (Lipitor -) 20 mg PO HS [facility] Last Admin: 02/25/19 23:59 Dose: Not Given Clonazepam (Klonopin -) 0.5 mg PO AM [facility] Last Admin: 02/26/19 06:56 Dose: 0.5 mg Clonazepam (Klonopin -) 1 mg PO HS [facility] Last Admin: 02/25/19 23:59 Dose: Not Given Furosemide (Lasix -) 40 mg PO DAILY [facility] Last Admin: 02/25/19 11:41 Dose: Not Given Gabapentin (Neurontin -) 100 mg PO TID [facility] Last Admin: 02/26/19 06:55 Dose: 100 mg Heparin Sodium (Porcine) (Heparin -) 5,000 unit SQ TID [facility] Last Admin: 02/26/19 06:59 Dose: Not Given Lorazepam (Ativan Injection -) 1 mg IM BID PRN PRN Reason: ANXIETY Metoprolol Tartrate (Lopressor -) 50 mg PO DAILY [facility] Last Admin: 02/25/19 11:37 Dose: Not Given Valsartan (Diovan -) 320 mg PO DAILY [facility] Last Admin: 02/25/19 11:37 Dose: Not Given - Allergies Allergies: Allergies Allergy/AdvReac Type Severity Reaction Status Date / Time No Known Allergies Allergy Verified 02/24/19 17:24 - Current Living Status Usual Living Arrangement: Alone - Current Mental Status Evaluation Appearance: Disheveled Attitude: Guarded - Affect Affect: Constrictive Appropriateness: Not Appropriate - Mood Mood: Irritable - Speech/Language Expressive: Coherent - Psychomotor Activity Psychomotor Activity: Slowed - Thought Process Thought Process: Circumstantial - Thought Content Hallucinations: Absent Delusions: Absent - Self Perception Self Perception: No Impairment - Cognition Attention: Diminished Orientation: Time Memory, Short Term: 1/3 Memory, Remote with Promptin/3 - Concentration Serial Sevens Intact: No Simple Calculations Intact: No - Abstraction Proverb Interpretation: Impaired Judgement: Minimally Impaired - Insight Insight: Impaired - Impulse Control Impulse Control: Minimally Impaired - Suicidal Ideation Suicidal Ideation: No - Homicidal Ideation Homicidal Ideation: No Assessment/Plan 1 AMS probably exacerbated from UTI. 2) Reduce Benzo use.
[2019-02-26] MEDS: VALSARTAN 160 MG TABLET (UD) PO SCH (11:37)
[2019-02-26] MEDS: FUROSEMIDE 40 MG TABLET (FP) PO SCH (11:37)
[2019-02-26] MEDS: METOPROLOL TARTRATE 50 MG TABLET (FP) PO SCH (11:37)
--- NOTE | 2019-02-26 11:41 | CONS ---
INFECTIOUS DISEASE CONSULTATION DATE OF CONSULTATION: DATE OF DICTATION: 02/25/2019 REQUESTING PHYSICIAN: Claudio Pat MD HISTORY: This is a 73-year-old woman who was recently hospitalized in December. At that time, she presented with hallucinations and agitation. She was evaluated by psychiatry as well as neurology and felt to have dementia with psychotic features. She was discharged home with follow up and is now being readmitted with increased agitation at home. She apparently received a call from Dr. Pat several days ago, and she has been on Cipro for 3 days for UTI. She is presently awake and alert. She is still quite combative. She does not want to eat. She denies chest pain. She has no abdominal pain. She has had no fevers or chills in the hospital. She has had no vomiting. I am asked to see her for possible UTI. PAST MEDICAL HISTORY: Notable for dementia, hypertension, hyperlipidemia, chronic low back pain, diabetes. She is status post laminectomy. SOCIAL HISTORY: She lives with her daughter. She is able to tell me she is from [place]. She is able to tell me her name. ALLERGIES: She has no known drug allergies. MEDICATIONS: At home include aspirin, Lopressor, simvastatin, Zyprexa, clonazepam, Lasix, Bystolic, valsartan. FAMILY HISTORY: Unremarkable. REVIEW OF SYSTEMS: Not available. She denies all symptoms. She tells me she has no abdominal pain, no chest pain. She does not want to eat. She feels fine. She knows that she is at the hospital, and she knows her name. PHYSICAL EXAMINATION: General: She is awake and alert. She follows simple commands. Vital Signs: Her temperature is 97.3, pulse 86, blood pressure 154/80, respiratory rate is 20. She is saturating 96% on room air. HEENT: She is normocephalic. Her eyes are anicteric. Neck: Supple. Lungs: Clear to auscultation. Heart: Regular rate and rhythm. Abdomen: Soft, nontender. Extremities: Without edema. Chest x-ray is without infiltrate. Her white count is 6.5, hemoglobin 10.7, platelets are normal. Her BUN and creatinine are normal, BUN 17 and creatinine 0.8. Liver function tests are normal. Urinalysis is negative. In summary, this is a 73-year-old woman apparently status post 3 days of Cipro at home for UTI. UA is negative here with a negative white count. I see no signs of infection. I expect this is an exacerbation of her dementia. Would suggest psychiatry evaluation. Please call back if needed. MARY BETH DISLA M.D. [facility]/[id number]
--- NOTE | 2019-02-26 12:24 | PN ---
Progress Note, Physician Chief Complaint: patient seen with family at bed side sleepy got klonopin - Current Medication List Current Medications: Active Medications Acetaminophen (Tylenol -) 650 mg PO Q6H PRN PRN Reason: PAIN LEVEL 1-5 Atorvastatin Calcium (Lipitor -) 20 mg PO HS [facility] Last Admin: 02/25/19 23:59 Dose: Not Given Furosemide (Lasix -) 40 mg PO DAILY [facility] Last Admin: 02/26/19 11:37 Dose: 40 mg Gabapentin (Neurontin -) 100 mg PO TID [facility] Last Admin: 02/26/19 06:55 Dose: 100 mg Heparin Sodium (Porcine) (Heparin -) 5,000 unit SQ TID [facility] Last Admin: 02/26/19 06:59 Dose: Not Given Metoprolol Tartrate (Lopressor -) 50 mg PO DAILY [facility] Last Admin: 02/26/19 11:37 Dose: 50 mg Olanzapine (Zyprexa -) 5 mg PO HS [facility] Valsartan (Diovan -) 320 mg PO DAILY [facility] Last Admin: 02/26/19 11:37 Dose: 320 mg - Objective Vital Signs: Vital Signs Temperature 97.4 F L 02/26/19 05:00 Pulse Rate 73 02/26/19 05:00 Respiratory Rate 18 02/26/19 05:00 Blood Pressure 154/79 02/26/19 05:00 O2 Sat by Pulse Oximetry (%) 96 02/25/19 21:00 Constitutional: Yes: Calm Cardiovascular: Yes: Regular Rate and Rhythm, S1, S2 Respiratory: Yes: CTA Bilaterally Gastrointestinal: Yes: Normal Bowel Sounds, Soft Edema: No Labs: CBC, BMP 02/25/19 07:50 02/25/19 07:50 Problem List - Problems (1) Altered mental status Assessment/Plan: stop klonopin restart zyprexa as per previous admission psych noted bid UA clear no fever normal WBC Code(s): R41.82 - ALTERED MENTAL STATUS, UNSPECIFIED (2) Alzheimer disease Assessment/Plan: donezipil 5mg AM after breakfast neurology eval Code(s): G30.9 - ALZHEIMER'S DISEASE, UNSPECIFIED; F02.80 - DEMENTIA IN OTH DISEASES CLASSD ELSWHR W/O BEHAVRL DISTURB (3) Hypertension Assessment/Plan: continue same medications Code(s): I10 - ESSENTIAL (PRIMARY) HYPERTENSION
[2019-02-26] MEDS ORDERED: PT OWN MED DRAWER 7, Y5N ONE ×2 (13:31→19:11)
--- NOTE | 2019-02-26 21:10 | CONSULT ---
Consult - text type - Consultation Consultation Note: NEUROLOGY CONSULTATION is greatly appreciated: Events reviewed. Patient examined. Discussed with RN. This 73 yo woman with h/o HTN, HLD, and Dementia. According to RN, the family reported that this patient was ambulatory at home. Is maintained on: Aspirin 81; Metoprolol; Simvastatin; Olanzapine 5 mg PO BID; Clonazepam 1 mg PO HS; Furosemide; Bystolic; and Valsartan 320 mg PO DAILY. Zyprexa 5 BID apparently started here during December admission but unclear if continued at home or if agitation was predominantly treated with benzodiazepines. CT of head (12/28/18) reviewed by me: Diffuse atrophy with a chronic left opercular lacunar infarct and diffuse microvascular changes. Now admitted with deterioration in her status and refusal to eat after 3 days of antibiotics for UTI. Now off all benzodiazepines and on Zyprexa 5 BID (standing dose). According to RN, Patient cannot stand without assistance and falls backward. Ammonia level= 40.2 mg% TAMICA: No evidence of external head trauma. Awake, alert. Gibberish speech. Follows rare verbal commands. Moves both arms spontaneously. Responds to mov't both visual zaragoza. Full EOM's. No facial. Gag OK Patient will not allow reflex or sensory testing. IMP: Severe, B/L cerebral dysfunction (OMS, Chronic) most c/w advanced Alzheimer 's Disease (AD). Unclear what may be worse or caused worsening but would consider Polypharmacy and possible benzodazepine withdrawal phenomenon. SUGGEST: Update B2, TSH Agree it is dodge to avoid benzodiazepines but also note that patient will likely lose ambulation on these doses of Olanzepine due to EPS. Would try to reduce AM olanzepine dose to 2.5 mg while continuing 5 mg at bedtime. Mobilize family OO Bed to chair when family is present Soft diet. Thank you very much, Flip Conte MD
[2019-02-26] MEDS: OLANZapine 5 MG TABLET PO SCH (23:17)
[2019-02-26] MEDS: ATORVASTATIN CA 20 MG TABLET (FP) PO SCH (23:20)
[2019-02-27] MEDS ORDERED: OLANZapine 5 MG TABLET PO SCH (07:00)
[2019-02-27] MEDS: GABAPENTIN 100 MG CAPSULE (FP) PO SCH ×3 (07:02→21:13)
[2019-02-27] MEDS: HEPARIN NA (PORCINE) 5,000 UNITS/ML 1ML VIAL SQ SCH ×3 (07:02→21:13)
--- NOTE | 2019-02-27 09:07 | PN ---
Progress Note, Physician - Current Medication List Current Medications: Active Medications Acetaminophen (Tylenol -) 650 mg PO Q6H PRN PRN Reason: PAIN LEVEL 1-5 Furosemide (Lasix -) 40 mg PO DAILY [facility] Last Admin: 02/26/19 11:37 Dose: 40 mg Gabapentin (Neurontin -) 100 mg PO TID [facility] Last Admin: 02/27/19 07:02 Dose: Not Given Heparin Sodium (Porcine) (Heparin -) 5,000 unit SQ TID [facility] Last Admin: 02/27/19 07:02 Dose: Not Given Metoprolol Tartrate (Lopressor -) 50 mg PO DAILY [facility] Last Admin: 02/26/19 11:37 Dose: 50 mg Olanzapine (Zyprexa -) 5 mg PO HS [facility] Last Admin: 02/26/19 23:17 Dose: 5 mg Olanzapine (Zyprexa -) 5 mg PO AM [facility] Last Admin: 02/27/19 08:02 Dose: 5 mg Valsartan (Diovan -) 320 mg PO DAILY [facility] Last Admin: 02/26/19 11:37 Dose: 320 mg - Objective Vital Signs: Vital Signs Temperature 98.7 F 02/26/19 18:00 Pulse Rate 74 02/26/19 18:00 Respiratory Rate 20 02/26/19 18:00 Blood Pressure 157/75 02/26/19 18:00 O2 Sat by Pulse Oximetry (%) 97 02/26/19 09:00 Cardiovascular: Yes: S1, S2 Respiratory: Yes: Regular, CTA Bilaterally Gastrointestinal: Yes: Normal Bowel Sounds, Soft Labs: CBC, BMP 02/25/19 07:50 02/25/19 07:50 Problem List - Problems (1) UTI (urinary tract infection) Assessment/Plan: recently completed 3 days po Cipro - UA negative, afebrile - follow up urine cx Microbiology 02/24/19 19:06 Urine - Urine Clean Catch Urine Culture - Final Normal Urogenital Cleo - Abx per id--none Code(s): N39.0 - URINARY TRACT INFECTION, SITE NOT SPECIFIED (2) Alzheimer disease Assessment/Plan: - Continue with Olanzapine 2.5 am 5 pm - mirtazipine - Off Benzo - follow up psych - safety/fall precaution Code(s): G30.9 - ALZHEIMER'S DISEASE, UNSPECIFIED; F02.80 - DEMENTIA IN OTH DISEASES CLASSD ELSWHR W/O BEHAVRL DISTURB (3) Diabetes Assessment/Plan: bgm Code(s): E11.9 - TYPE 2 DIABETES MELLITUS WITHOUT COMPLICATIONS Assessment/Plan dc planning
[2019-02-27] MEDS: METOPROLOL TARTRATE 50 MG TABLET (FP) PO SCH (10:40)
[2019-02-27] MEDS: FUROSEMIDE 40 MG TABLET (FP) PO SCH (10:40)
[2019-02-27] MEDS: VALSARTAN 160 MG TABLET (UD) PO SCH (10:40)
[2019-02-27 11:10] LABS: BASO % 0.8 % (0-2.0); EOS % 2.4 % (0-4.5); HEMATOCRIT 33.7 % (32.4-45.2); HEMOGLOBIN 11.5 GM/dL (10.7-15.3); LYMPH % 24.6 % (8-40); MCH 31.5 pg (25.7-33.7); MCHC 34.2 g/dl (32.0-36.0); MEAN CELL VOLUME 92.3 fl (80-96); MEAN PLT VOLUME 6.7 fl (7.5-11.1); MONO % 9.7 % (3.8-10.2); NEUT % 62.5 % (42.8-82.8); PLATELET COUNT 243 K/MM3 (134-434); RBC 3.65 M/mm3 (3.60-5.2); RDW 13.5 % (11.6-15.6); WHITE BLOOD COUNT 6.2 K/mm3 (4.0-10.0)
[2019-02-27 11:40] LABS: ALBUMIN 3.2 g/dl (3.4-5.0); BILIRUBIN,TOTAL 1.7 mg/dL (0.2-1); BLOOD UREA NITROGEN 22.8 mg/dL (7-18); CALCIUM 9.1 mg/dL (8.5-10.1); CREATININE 0.8 mg/dL (0.55-1.3); POTASSIUM 3.8 mmol/L (3.5-5.1); TOT PROT 6.9 g/dl (6.4-8.2)
[2019-02-27] MEDS: OLANZapine 5 MG TABLET PO SCH (21:13)
[2019-02-28] MEDS: HEPARIN NA (PORCINE) 5,000 UNITS/ML 1ML VIAL SQ SCH ×3 (06:35→21:06)
[2019-02-28] MEDS: OLANZapine 5 MG TABLET PO SCH ×2 (06:35→21:10)
[2019-02-28] MEDS: GABAPENTIN 100 MG CAPSULE (FP) PO SCH ×3 (06:35→21:10)
[2019-02-28] MEDS ORDERED: PT OWN MED DRAWER 7, Y5N ONE (08:00)
--- NOTE | 2019-02-28 09:51 | DS ---
Physical Examination Vital Signs: Vital Signs Temperature 97.9 F 02/28/19 09:02 Pulse Rate 104 H 02/28/19 09:02 Respiratory Rate 18 02/28/19 09:02 Blood Pressure 133/80 02/28/19 09:02 O2 Sat by Pulse Oximetry (%) 96 02/27/19 21:00 Cardiovascular: Yes: Regular Rate and Rhythm Respiratory: Yes: Regular, CTA Bilaterally Gastrointestinal: Yes: Normal Bowel Sounds, Soft Neurological: Yes: Alert, Confusion Labs: CBC, BMP 02/27/19 10:35 02/27/19 10:35 Discharge Summary Problems reviewed: Yes Reason For Visit: ALTERED MENTAL STATUS Current Active Problems Altered mental status (Acute) Alzheimer disease (Acute) Dementia (Acute) Diabetes (Acute) UTI (urinary tract infection) (Acute) Hospital Course: - Problems (1) UTI (urinary tract infection) Assessment/Plan: recently completed 3 days po Cipro - UA negative, afebrile - follow up urine cx Microbiology 02/24/19 19:06 Urine - Urine Clean Catch Urine Culture - Final Normal Urogenital Cleo - Abx per id--none Code(s): N39.0 - URINARY TRACT INFECTION, SITE NOT SPECIFIED (2) Alzheimer disease Assessment/Plan: - Continue with Olanzapine 2.5 am 5 pm - mirtazipine - Off Benzo - follow up psych - safety/fall precaution Code(s): G30.9 - ALZHEIMER'S DISEASE, UNSPECIFIED; F02.80 - DEMENTIA IN OTH DISEASES CLASSD ELSWHR W/O BEHAVRL DISTURB (3) Diabetes Assessment/Plan: bgm Code(s): E11.9 - TYPE 2 DIABETES MELLITUS WITHOUT COMPLICATIONS Assessment/Plan dc planning Condition: Stable - Instructions Disposition: NURSING HOME FACILITY - Home Medications Comprehensive Discharge Medication List: Ambulatory Orders Aspirin [Aspirin EC] 81 mg PO DAILY 12/28/18 Metoprolol Tartrate [Lopressor -] 50 mg PO DAILY 12/28/18 Simvastatin 40 mg PO HS 12/28/18 Acetaminophen [Tylenol] 650 mg PO Q6H 01/31/19 Furosemide [Lasix] 40 mg PO DAILY 01/31/19 Valsartan 320 mg PO DAILY 01/31/19 Atorvastatin Ca [Lipitor] 20 mg PO HS tablet 02/28/19 Gabapentin [Neurontin -] 100 mg PO TID capsule 02/28/19 Heparin - 5,000 unit SQ TID vial 02/28/19 Olanzapine [Zyprexa -] 2.5 mg PO AM tablet 02/28/19 Olanzapine [Zyprexa -] 5 mg PO HS tablet 02/28/19
[2019-02-28] MEDS: METOPROLOL TARTRATE 50 MG TABLET (FP) PO SCH (10:35)
[2019-02-28] MEDS: FUROSEMIDE 40 MG TABLET (FP) PO SCH (10:35)
[2019-02-28] MEDS: VALSARTAN 160 MG TABLET (UD) PO SCH (10:35)
[2019-03-01] MEDS: GABAPENTIN 100 MG CAPSULE (FP) PO SCH ×4 (06:16→22:37)
[2019-03-01] MEDS: OLANZapine 5 MG TABLET PO SCH ×2 (06:16→06:24)
[2019-03-01] MEDS: HEPARIN NA (PORCINE) 5,000 UNITS/ML 1ML VIAL SQ SCH ×4 (06:16→22:37)
[2019-03-01] MEDS ORDERED: PT OWN MED DRAWER 7, Y5N ONE (08:01)
--- NOTE | 2019-03-01 08:25 | DS ---
Physical Examination Vital Signs: Vital Signs Temperature 97.8 F 03/01/19 06:27 Pulse Rate 80 03/01/19 06:27 Respiratory Rate 20 03/01/19 06:27 Blood Pressure 130/59 L 03/01/19 06:27 O2 Sat by Pulse Oximetry (%) 95 02/28/19 21:00 Cardiovascular: Yes: S1, S2 Respiratory: Yes: Regular, CTA Bilaterally Gastrointestinal: Yes: Normal Bowel Sounds, Soft Neurological: Yes: Alert, Confusion Labs: CBC, BMP 02/27/19 10:35 02/27/19 10:35 Discharge Summary Problems reviewed: Yes Reason For Visit: ALTERED MENTAL STATUS Current Active Problems Altered mental status (Acute) Alzheimer disease (Acute) Dementia (Acute) Diabetes (Acute) UTI (urinary tract infection) (Acute) Hospital Course: - Problems (1) UTI (urinary tract infection) Assessment/Plan: recently completed 3 days po Cipro - UA negative, afebrile - follow up urine cx Microbiology 02/24/19 19:06 Urine - Urine Clean Catch Urine Culture - Final Normal Urogenital Cleo - Abx per id--none Code(s): N39.0 - URINARY TRACT INFECTION, SITE NOT SPECIFIED (2) Alzheimer disease Assessment/Plan: - Continue with Olanzapine 2.5 am 5 pm - mirtazipine - Off Benzo - follow up psych - safety/fall precaution Code(s): G30.9 - ALZHEIMER'S DISEASE, UNSPECIFIED; F02.80 - DEMENTIA IN OTH DISEASES CLASSD ELSWHR W/O BEHAVRL DISTURB (3) Diabetes Assessment/Plan: bgm Code(s): E11.9 - TYPE 2 DIABETES MELLITUS WITHOUT COMPLICATIONS Assessment/Plan dc planning Condition: Stable - Instructions Disposition: SNF FACILITY - Home Medications Comprehensive Discharge Medication List: Ambulatory Orders Aspirin [Aspirin EC] 81 mg PO DAILY 12/28/18 Metoprolol Tartrate [Lopressor -] 50 mg PO DAILY 12/28/18 Simvastatin 40 mg PO HS 12/28/18 Acetaminophen [Tylenol] 650 mg PO Q6H 01/31/19 Furosemide [Lasix] 40 mg PO DAILY 01/31/19 Valsartan 320 mg PO DAILY 01/31/19 Atorvastatin Ca [Lipitor] 20 mg PO HS tablet 02/28/19 Gabapentin [Neurontin -] 100 mg PO TID capsule 12/18/19 Heparin - 5,000 unit SQ TID vial 02/28/19 Olanzapine [Zyprexa -] 2.5 mg PO AM tablet 02/28/19 Olanzapine [Zyprexa -] 5 mg PO HS tablet 02/28/19
[2019-03-01] MEDS: FUROSEMIDE 40 MG TABLET (FP) PO SCH (12:42)
[2019-03-01] MEDS: VALSARTAN 160 MG TABLET (UD) PO SCH (12:42)
[2019-03-01] MEDS: METOPROLOL TARTRATE 50 MG TABLET (FP) PO SCH (12:43)
[2019-03-01] MEDS ORDERED: OLANZapine 5 MG TABLET PO ONE (20:43)
[2019-03-01] MEDS: TRIAMCINOLONE ACET 0.5% CREAM 15 GM TUBE TP SCH (23:30)
[2019-03-02] MEDS: HEPARIN NA (PORCINE) 5,000 UNITS/ML 1ML VIAL SQ SCH ×3 (06:00→21:17)
[2019-03-02] MEDS: GABAPENTIN 100 MG CAPSULE (FP) PO SCH ×3 (06:00→21:20)
[2019-03-02] MEDS: OLANZapine 5 MG TABLET PO SCH (06:01)
[2019-03-02] MEDS: TRIAMCINOLONE ACET 0.5% CREAM 15 GM TUBE TP SCH ×2 (09:44→22:14)
--- NOTE | 2019-03-02 09:57 | PN ---
Progress Note, Physician Chief Complaint: AMS Alzheimer Disease History of Present Illness: Previous notes and events reviewed awake and alert NAD patient had episode of confusion last night - Current Medication List Current Medications: Active Medications Acetaminophen (Tylenol -) 650 mg PO Q6H PRN PRN Reason: PAIN LEVEL 1-5 Furosemide (Lasix -) 40 mg PO DAILY [facility] Last Admin: 03/01/19 12:42 Dose: Not Given Gabapentin (Neurontin -) 100 mg PO TID [facility] Last Admin: 03/02/19 06:00 Dose: Not Given Heparin Sodium (Porcine) (Heparin -) 5,000 unit SQ TID [facility] Last Admin: 03/02/19 06:00 Dose: Not Given Metoprolol Tartrate (Lopressor -) 50 mg PO DAILY [facility] Last Admin: 03/01/19 12:43 Dose: 50 mg Olanzapine (Zyprexa -) 2.5 mg PO AM [facility] Last Admin: 03/02/19 06:01 Dose: 2.5 mg Triamcinolone Acetonide (Aristocort 0.5% Cream -) 1 applic TP BID [facility] Last Admin: 03/02/19 09:44 Dose: 1 applic Valsartan (Diovan -) 320 mg PO DAILY [facility] Last Admin: 03/01/19 12:42 Dose: Not Given - Objective Vital Signs: Vital Signs Temperature 98.3 F 03/02/19 06:49 Pulse Rate 80 03/02/19 06:49 Respiratory Rate 18 03/02/19 06:49 Blood Pressure 144/60 03/02/19 06:49 O2 Sat by Pulse Oximetry (%) 95 03/01/19 09:00 Constitutional: Yes: No Distress, Calm Eyes: Yes: Conjunctiva Clear HENT: Yes: Atraumatic Cardiovascular: Yes: Regular Rate and Rhythm Respiratory: Yes: Regular, CTA Bilaterally Gastrointestinal: Yes: Normal Bowel Sounds, Soft Musculoskeletal: Yes: WNL Extremities: Yes: WNL Edema: No Neurological: Yes: Alert, Confusion Psychiatric: Yes: Alert Labs: CBC, BMP 02/27/19 10:35 02/27/19 10:35 Microbiology 02/24/19 19:06 Urine - Urine Clean Catch Urine Culture - Final Normal Urogenital Cleo Problem List - Problems (1) Altered mental status Assessment/Plan: -Neurology on board -UC neg -no leukocytosis -afebrile Code(s): R41.82 - ALTERED MENTAL STATUS, UNSPECIFIED (2) Alzheimer disease Assessment/Plan: -Neurology on board -Olanzapine Code(s): G30.9 - ALZHEIMER'S DISEASE, UNSPECIFIED; F02.80 - DEMENTIA IN OTH DISEASES CLASSD ELSWHR W/O BEHAVRL DISTURB (3) Diabetes Assessment/Plan: -BGM ACHS -Diabetic diet Code(s): E11.9 - TYPE 2 DIABETES MELLITUS WITHOUT COMPLICATIONS (4) UTI (urinary tract infection) Assessment/Plan: -UC neg -UA neg Code(s): N39.0 - URINARY TRACT INFECTION, SITE NOT SPECIFIED (5) Hypertension Assessment/Plan: -Diovan, Furosemide, Metoprolol Code(s): I10 - ESSENTIAL (PRIMARY) HYPERTENSION Assessment/Plan see problem list dvt ppx pending discharge to SNF when bed available
[2019-03-02] MEDS: METOPROLOL TARTRATE 50 MG TABLET (FP) PO SCH (10:51)
[2019-03-02] MEDS: VALSARTAN 160 MG TABLET (UD) PO SCH (10:52)
[2019-03-02] MEDS: FUROSEMIDE 40 MG TABLET (FP) PO SCH (10:54)
[2019-03-02] MEDS ORDERED: OLANZapine 5 MG TABLET PO ONE (21:13)
[2019-03-03] MEDS ORDERED: OLANZapine 2.5 MG TABLET PO ONE (01:53)
[2019-03-03] MEDS: GABAPENTIN 100 MG CAPSULE (FP) PO SCH (05:03)
[2019-03-03] MEDS: HEPARIN NA (PORCINE) 5,000 UNITS/ML 1ML VIAL SQ SCH (05:03)
[2019-03-03] MEDS: OLANZapine 5 MG TABLET PO SCH (06:19)
[2019-03-03] MEDS ORDERED: LORazepam 2 MG/ML SDV VIAL IM ONE (06:26)
[2019-03-03] MEDS ORDERED: diphenhydrAMINE HCL 25 MG CAPSULE (FP) PO ONE (08:15)
[2019-03-03 08:59] LABS: HEMATOCRIT 35.2 % (32.4-45.2); MCH 31.3 pg (25.7-33.7); MCHC 33.9 g/dl (32.0-36.0); MEAN CELL VOLUME 92.1 fl (80-96); MEAN PLT VOLUME 7.3 fl (7.5-11.1); PLATELET COUNT 306 K/MM3 (134-434); RBC 3.83 M/mm3 (3.60-5.2); RDW 13.5 % (11.6-15.6); WHITE BLOOD COUNT 7.5 K/mm3 (4.0-10.0)
[2019-03-03 09:26] LABS: ALBUMIN 3.5 g/dl (3.4-5.0); BLOOD UREA NITROGEN 41.2 mg/dL (7-18); CALCIUM 9.3 mg/dL (8.5-10.1); CREATININE 1.2 mg/dL (0.55-1.3); TOT PROT 7.4 g/dl (6.4-8.2)
[2019-03-03] MEDS: FUROSEMIDE 40 MG TABLET (FP) PO SCH (09:40)
[2019-03-03] MEDS: METOPROLOL TARTRATE 50 MG TABLET (FP) PO SCH (09:40)
[2019-03-03] MEDS: VALSARTAN 160 MG TABLET (UD) PO SCH (09:41)
[2019-03-03] MEDS: TRIAMCINOLONE ACET 0.5% CREAM 15 GM TUBE TP SCH (09:42)
[2019-03-03 09:53] VITALS: BP 131/64; PULSE 99; TEMP 98.2
== END 2019-03-03 11:01 | DRG 57 ==
LOC: JER 17:05 → JERBED 22:06 → J5S 02-25 03:20
PROVIDERS: ADMIT Family Medicine; ATTEND Family Medicine
DX: G30.9 Alzheimer's disease, unspecified (principal); F02.81 Dementia in other diseases classified elsewhere, unspecified severity, with behavioral disturbance; E78.5 Hyperlipidemia, unspecified; M54.16 Radiculopathy, lumbar region; E11.9 Type 2 diabetes mellitus without complications; I10 Essential (primary) hypertension; R41.82 Altered mental status, unspecified
CPT/HCPCS: 36415; 71045-TC-FY; 80048; 80053; 81003; 82140; 82550; 82962; 84484; 85025; 85027; 87086; 93005; 93010; 97116-GP; 97162-GP; 99285-25; J1644

== ENCOUNTER 2019-03-03 11:56 | Inpatient (IN) | payer OTHER ==
[2019-03-03 12:27] VITALS: BMI 32.0
[2019-03-03] MEDS ORDERED: HEPARIN NA (PORCINE) 5,000 UNITS/ML 1ML VIAL SQ SCH (14:00)
[2019-03-03] MEDS: ACETAMINOPHEN 325 MG TABLET (FP) PO SCH ×2 (14:14→21:18)
[2019-03-03] MEDS: GABAPENTIN 100 MG CAPSULE (FP) PO SCH ×2 (14:15→21:22)
[2019-03-03] MEDS: OLANZapine 5 MG TABLET PO SCH (21:20)
[2019-03-03] MEDS: HEPARIN NA (PORCINE) 5,000 UNITS/ML 1ML VIAL SQ SCH (21:20)
[2019-03-03] MEDS: ATORVASTATIN CA 20 MG TABLET (FP) PO SCH (21:23)
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
[2019-03-04] MEDS: ACETAMINOPHEN 325 MG TABLET (FP) PO SCH ×4 (02:27→18:20)
[2019-03-04] MEDS ORDERED: OLANZapine 5 MG TABLET PO SCH (07:00)
[2019-03-04] MEDS: GABAPENTIN 100 MG CAPSULE (FP) PO SCH ×3 (07:00→21:27)
[2019-03-04] MEDS: METOPROLOL TARTRATE 50 MG TABLET (FP) PO SCH (09:01)
[2019-03-04] MEDS: HEPARIN NA (PORCINE) 5,000 UNITS/ML 1ML VIAL SQ SCH ×2 (09:01→21:27)
[2019-03-04] MEDS: FUROSEMIDE 40 MG TABLET (FP) PO SCH (09:01)
[2019-03-04] MEDS: OLANZapine 5 MG TABLET PO SCH ×2 (09:01→21:26)
[2019-03-04] MEDS: VALSARTAN 160 MG TABLET (UD) PO SCH (09:01)
[2019-03-04] MEDS: ASPIRIN COATED 81 MG TABLET.EC PO SCH (09:02)
--- NOTE | 2019-03-04 10:09 | PN ---
Progress Note, Physician Chief Complaint: AMS History of Present Illness: NAD pleasantly confused - Current Medication List Current Medications: Active Medications Acetaminophen (Tylenol -) 650 mg PO Q6H [facility] Last Admin: 03/04/19 06:59 Dose: 650 mg Aspirin (Ecotrin -) 81 mg PO DAILY [facility] Last Admin: 03/04/19 09:02 Dose: 81 mg Atorvastatin Calcium (Lipitor -) 20 mg PO HS [facility] Last Admin: 03/03/19 21:23 Dose: Not Given Furosemide (Lasix -) 40 mg PO DAILY [facility] Last Admin: 03/04/19 09:01 Dose: 40 mg Gabapentin (Neurontin -) 100 mg PO TID [facility] Last Admin: 03/04/19 07:00 Dose: 100 mg Heparin Sodium (Porcine) (Heparin -) 5,000 unit SQ BID [facility] Last Admin: 03/04/19 09:01 Dose: 5,000 unit Metoprolol Tartrate (Lopressor -) 50 mg PO DAILY [facility] Last Admin: 03/04/19 09:01 Dose: 50 mg Olanzapine (Zyprexa -) 5 mg PO BID [facility] Last Admin: 03/04/19 09:01 Dose: 5 mg Valsartan (Diovan -) 320 mg PO DAILY [facility] Last Admin: 03/04/19 09:01 Dose: 320 mg - Objective Vital Signs: Vital Signs Temperature 98.3 F 03/04/19 08:56 Pulse Rate 86 03/04/19 08:56 Respiratory Rate 18 03/04/19 08:56 Blood Pressure 147/70 03/04/19 08:56 O2 Sat by Pulse Oximetry (%) 95 03/04/19 08:56 Constitutional: Yes: Well Nourished, No Distress, Calm Cardiovascular: Yes: Regular Rate and Rhythm Respiratory: Yes: Regular Gastrointestinal: Yes: Normal Bowel Sounds, Soft Genitourinary: Yes: WNL Musculoskeletal: Yes: Muscle Weakness Extremities: Yes: WNL Edema: No Peripheral Pulses WNL: Yes Neurological: Yes: Alert, Pre-Existing Deficit Problem List - Problems (1) Altered mental status Assessment/Plan: -Increase olanzapine to 5 mg po bid -spoke to daughter, who is in agreement to be here when the ambulance is set for the patient to take her to [facility] on Tuesday. Problems reviewed: Yes Code(s): R41.82 - ALTERED MENTAL STATUS, UNSPECIFIED (2) Alzheimer disease Problems reviewed: Yes Code(s): G30.9 - ALZHEIMER'S DISEASE, UNSPECIFIED; F02.80 - DEMENTIA IN OTH DISEASES CLASSD ELSWHR W/O BEHAVRL DISTURB Assessment/Plan See problem list
[2019-03-04] MEDS: ATORVASTATIN CA 20 MG TABLET (FP) PO SCH (21:27)
[2019-03-05] MEDS ORDERED: OLANZapine 2.5 MG TABLET PO ONE (01:35)
[2019-03-05] MEDS: ACETAMINOPHEN 325 MG TABLET (FP) PO SCH ×4 (02:12→18:23)
[2019-03-05] MEDS ORDERED: OLANZapine 5 MG TABLET PO ONE (02:15)
[2019-03-05] MEDS: GABAPENTIN 100 MG CAPSULE (FP) PO SCH ×4 (06:52→21:20)
[2019-03-05] MEDS ORDERED: PT OWN MED DRAWER 7, Y5N ONE ×2 (09:06→11:16)
[2019-03-05] MEDS: OLANZapine 5 MG TABLET PO SCH ×3 (09:08→21:20)
[2019-03-05] MEDS: VALSARTAN 160 MG TABLET (UD) PO SCH (09:08)
[2019-03-05] MEDS: FUROSEMIDE 40 MG TABLET (FP) PO SCH (09:08)
[2019-03-05] MEDS: METOPROLOL TARTRATE 50 MG TABLET (FP) PO SCH (09:09)
[2019-03-05] MEDS: ASPIRIN COATED 81 MG TABLET.EC PO SCH (09:09)
[2019-03-05] MEDS: HEPARIN NA (PORCINE) 5,000 UNITS/ML 1ML VIAL SQ SCH ×2 (09:09→21:00)
--- NOTE | 2019-03-05 10:48 | DS ---
Physical Examination Vital Signs: Vital Signs Temperature 97.8 F 03/05/19 06:50 Pulse Rate 79 03/05/19 06:50 Respiratory Rate 19 03/05/19 06:50 Blood Pressure 150/69 03/05/19 06:50 O2 Sat by Pulse Oximetry (%) 95 03/04/19 08:56 Findings/Remarks: Home Medication List Medication Instructions Recorded Confirmed Type Aspirin [Aspirin EC] 81 mg PO DAILY 12/28/18 02/24/19 History Metoprolol Tartrate [Lopressor -] 50 mg PO DAILY 12/28/18 02/24/19 History Simvastatin 40 mg PO HS 12/28/18 02/24/19 History Acetaminophen [Tylenol] 650 mg PO Q6H 01/31/19 02/24/19 History Furosemide [Lasix] 40 mg PO DAILY 01/31/19 02/24/19 History Valsartan 320 mg PO DAILY 01/31/19 02/24/19 History Active Medications Generic Name Dose Route Start Last Admin Trade Name Freq PRN Reason Stop Dose Admin Acetaminophen 650 mg 03/03/19 13:00 03/05/19 06:47 Tylenol - PO 650 mg Q6H NIKHIL Administration Aspirin 81 mg 03/04/19 10:00 03/05/19 09:09 Ecotrin - PO 81 mg DAILY [facility] Administration Atorvastatin Calcium 20 mg 03/03/19 22:00 03/04/19 21:27 Lipitor - PO 20 mg HS [facility]IL Administration Furosemide 40 mg 03/04/19 10:00 03/05/19 09:08 Lasix - PO 40 mg DAILY [facility] Administration Gabapentin 100 mg 03/03/19 14:00 03/05/19 06:52 Neurontin - PO 100 mg TID [facility]IL Administration Heparin Sodium (Porcine) 5,000 unit 03/03/19 22:00 03/05/19 09:09 Heparin - SQ 5,000 unit BID [facility] Administration Metoprolol Tartrate 50 mg 03/04/19 10:00 03/05/19 09:09 Lopressor - PO 50 mg DAILY [facility] Administration Olanzapine 5 mg 03/03/19 22:00 03/05/19 09:08 Zyprexa - PO 5 mg BID [facility] Administration Valsartan 320 mg 03/04/19 10:00 03/05/19 09:08 Diovan - PO 320 mg DAILY [facility] Administration Constitutional: Yes: No Distress, Calm Eyes: Yes: Conjunctiva Clear HENT: Yes: Atraumatic Neck: Yes: Supple Cardiovascular: Yes: Regular Rate and Rhythm Respiratory: Yes: Regular, CTA Bilaterally Gastrointestinal: Yes: Normal Bowel Sounds, Soft Musculoskeletal: Yes: Muscle Weakness Extremities: Yes: WNL Edema: No Neurological: Yes: Alert Psychiatric: Yes: Alert Discharge Summary Problems reviewed: Yes Hospital Course: 73 year old female with significant past medical history of hypertension and high cholesterol, chronic lumbar radiculopathy s/p laminectomy of L3-L4 ( Neurosurgeon, Dr. Michael Tyson), borderline diabetes, and obesity who presents to the ED for AMS. Patient daughter present, states she received a text from Dr. Pat for results of UTI, placed on Cipro for the past 3 days, however, over the last 2 days she has become very altered at home. Last visit to ER was at the time was at [place] for AMS related to UTI with similar symptoms. Brother at bedside, mentions patient has been weak with difficulty ambulating Denies chest pain, dizziness, shortness of breath, headache, fever, chills, headache, abdominal pain, diarrhea, nausea, vomiting. Patient is alert and awake. No acute events reported. Condition: Stable - Instructions - Home Medications Comprehensive Discharge Medication List: Ambulatory Orders Aspirin [Aspirin EC] 81 mg PO DAILY 12/28/18 Metoprolol Tartrate [Lopressor -] 50 mg PO DAILY 12/28/18 Simvastatin 40 mg PO HS 12/28/18 Acetaminophen [Tylenol] 650 mg PO Q6H 01/31/19 Furosemide [Lasix] 40 mg PO DAILY 01/31/19 Valsartan 320 mg PO DAILY 01/31/19 Atorvastatin Ca [Lipitor] 20 mg PO HS tablet 02/28/19 Gabapentin [Neurontin -] 100 mg PO TID capsule 02/28/19 Heparin - 5,000 unit SQ TID vial 02/28/19 Olanzapine [Zyprexa -] 2.5 mg PO AM tablet 02/28/19 Olanzapine [Zyprexa -] 5 mg PO HS tablet 02/28/19
[2019-03-05] MEDS: ATORVASTATIN CA 20 MG TABLET (FP) PO SCH ×2 (20:54→21:20)
[2019-03-06] MEDS: ACETAMINOPHEN 325 MG TABLET (FP) PO SCH ×4 (01:08→19:10)
[2019-03-06] MEDS: GABAPENTIN 100 MG CAPSULE (FP) PO SCH ×3 (06:45→21:00)
[2019-03-06] MEDS: VALSARTAN 160 MG TABLET (UD) PO SCH (11:26)
[2019-03-06] MEDS: HEPARIN NA (PORCINE) 5,000 UNITS/ML 1ML VIAL SQ SCH ×2 (11:29→20:59)
[2019-03-06] MEDS: OLANZapine 5 MG TABLET PO SCH ×2 (11:29→21:00)
[2019-03-06] MEDS: ASPIRIN COATED 81 MG TABLET.EC PO SCH (11:29)
[2019-03-06] MEDS: METOPROLOL TARTRATE 50 MG TABLET (FP) PO SCH (11:29)
[2019-03-06] MEDS: FUROSEMIDE 40 MG TABLET (FP) PO SCH (11:29)
--- NOTE | 2019-03-06 11:35 | PN ---
Progress Note, Physician Chief Complaint: AMS Dementia History of Present Illness: Previous notes and events reviewed sleeping, but responsive to verbal stimuli NAD no acute events overnight denies chest pain or SOB discharge appealed by family - Current Medication List Current Medications: Active Medications Acetaminophen (Tylenol -) 650 mg PO Q6H [facility] Last Admin: 03/06/19 06:45 Dose: Not Given Aspirin (Ecotrin -) 81 mg PO DAILY [facility] Last Admin: 03/05/19 09:09 Dose: 81 mg Atorvastatin Calcium (Lipitor -) 20 mg PO HS [facility] Last Admin: 03/05/19 21:20 Dose: Not Given Furosemide (Lasix -) 40 mg PO DAILY [facility] Last Admin: 03/05/19 09:08 Dose: 40 mg Gabapentin (Neurontin -) 100 mg PO TID [facility] Last Admin: 03/06/19 06:45 Dose: Not Given Heparin Sodium (Porcine) (Heparin -) 5,000 unit SQ BID [facility] Last Admin: 03/05/19 21:00 Dose: Not Given Metoprolol Tartrate (Lopressor -) 50 mg PO DAILY [facility] Last Admin: 03/05/19 09:09 Dose: 50 mg Olanzapine (Zyprexa -) 5 mg PO BID [facility] Last Admin: 03/05/19 21:20 Dose: Not Given Valsartan (Diovan -) 320 mg PO DAILY [facility] Last Admin: 03/05/19 09:08 Dose: 320 mg - Objective Vital Signs: Vital Signs Temperature 97.7 F 03/06/19 06:00 Pulse Rate 79 03/06/19 06:00 Respiratory Rate 18 03/06/19 06:00 Blood Pressure 138/55 L 03/06/19 06:00 O2 Sat by Pulse Oximetry (%) 96 03/05/19 21:00 Constitutional: Yes: No Distress, Calm Eyes: Yes: Conjunctiva Clear HENT: Yes: Atraumatic Cardiovascular: Yes: Regular Rate and Rhythm Respiratory: Yes: Regular, CTA Bilaterally Gastrointestinal: Yes: Normal Bowel Sounds, Soft Musculoskeletal: Yes: Muscle Weakness Extremities: Yes: WNL Edema: Yes Edema: LLE: Trace, RLE: Trace Neurological: Yes: Alert, Confusion Psychiatric: Yes: Alert Problem List - Problems (1) Altered mental status Assessment/Plan: -2/2 to dementia Code(s): R41.82 - ALTERED MENTAL STATUS, UNSPECIFIED (2) Alzheimer disease Assessment/Plan: -Olanzapine 5mg BID Code(s): G30.9 - ALZHEIMER'S DISEASE, UNSPECIFIED; F02.80 - DEMENTIA IN OTH DISEASES CLASSD ELSWHR W/O BEHAVRL DISTURB (3) Dementia Assessment/Plan: -Olanzapine 5mg BID Code(s): F03.90 - UNSPECIFIED DEMENTIA WITHOUT BEHAVIORAL DISTURBANCE Qualifiers: Dementia behavioral disturbance: with behavioral disturbance (4) Hypertension Assessment/Plan: -Diovan -low Na diet Code(s): I10 - ESSENTIAL (PRIMARY) HYPERTENSION Assessment/Plan see problem list dvt ppx patient was not accepted to SNF and daughter only wants [facility]. Discharge appealed by daughter. Will need 24/7 home care set up for patient for safe discharge
[2019-03-06] MEDS: ATORVASTATIN CA 20 MG TABLET (FP) PO SCH (21:00)
[2019-03-07] MEDS: ACETAMINOPHEN 325 MG TABLET (FP) PO SCH ×4 (01:16→18:17)
[2019-03-07] MEDS: GABAPENTIN 100 MG CAPSULE (FP) PO SCH ×4 (05:48→21:06)
--- NOTE | 2019-03-07 10:03 | PN ---
Progress Note, Physician Chief Complaint: AMS History of Present Illness: NAD pleasantly confused discharge appealed by daughter, not accepted by SNF and pt would need 24 hour care at home - Current Medication List Current Medications: Active Medications Acetaminophen (Tylenol -) 650 mg PO Q6H [facility] Last Admin: 03/07/19 06:53 Dose: Not Given Aspirin (Ecotrin -) 81 mg PO DAILY [facility] Last Admin: 03/06/19 11:29 Dose: 81 mg Atorvastatin Calcium (Lipitor -) 20 mg PO HS [facility] Last Admin: 03/06/19 21:00 Dose: 20 mg Furosemide (Lasix -) 40 mg PO DAILY [facility] Last Admin: 03/06/19 11:29 Dose: 40 mg Gabapentin (Neurontin -) 100 mg PO TID [facility] Last Admin: 03/07/19 05:48 Dose: 100 mg Heparin Sodium (Porcine) (Heparin -) 5,000 unit SQ BID [facility] Last Admin: 03/06/19 20:59 Dose: 5,000 unit Metoprolol Tartrate (Lopressor -) 50 mg PO DAILY [facility] Last Admin: 03/06/19 11:29 Dose: 50 mg Olanzapine (Zyprexa -) 5 mg PO BID [facility] Last Admin: 03/06/19 21:00 Dose: 5 mg Valsartan (Diovan -) 320 mg PO DAILY [facility] Last Admin: 03/06/19 11:26 Dose: 320 mg - Objective Vital Signs: Vital Signs Temperature 98.1 F 03/07/19 06:00 Pulse Rate 79 03/07/19 06:00 Respiratory Rate 18 03/07/19 06:00 Blood Pressure 150/88 03/07/19 06:00 O2 Sat by Pulse Oximetry (%) 95 03/06/19 21:00 Constitutional: Yes: Well Nourished, No Distress, Calm Cardiovascular: Yes: Regular Rate and Rhythm Respiratory: Yes: Regular Gastrointestinal: Yes: Normal Bowel Sounds, Soft Genitourinary: Yes: WNL Musculoskeletal: Yes: Muscle Weakness Extremities: Yes: WNL Edema: No Peripheral Pulses WNL: Yes Neurological: Yes: Alert, Pre-Existing Deficit Psychiatric: Yes: Alert Problem List - Problems (1) Altered mental status Assessment/Plan: -Increase olanzapine to 5 mg po bid -spoke to daughter, who is in agreement to be here when the ambulance is set for the patient to take her to [facility] on Tuesday. Problems reviewed: Yes Code(s): R41.82 - ALTERED MENTAL STATUS, UNSPECIFIED (2) Alzheimer disease Problems reviewed: Yes Code(s): G30.9 - ALZHEIMER'S DISEASE, UNSPECIFIED; F02.80 - DEMENTIA IN OTH DISEASES CLASSD ELSWHR W/O BEHAVRL DISTURB Assessment/Plan See problem list
[2019-03-07] MEDS: FUROSEMIDE 40 MG TABLET (FP) PO SCH (11:26)
[2019-03-07] MEDS: VALSARTAN 160 MG TABLET (UD) PO SCH (11:27)
[2019-03-07] MEDS: ASPIRIN COATED 81 MG TABLET.EC PO SCH (11:27)
[2019-03-07] MEDS: METOPROLOL TARTRATE 50 MG TABLET (FP) PO SCH (11:27)
[2019-03-07] MEDS: HEPARIN NA (PORCINE) 5,000 UNITS/ML 1ML VIAL SQ SCH ×2 (11:27→21:04)
[2019-03-07] MEDS: OLANZapine 5 MG TABLET PO SCH ×2 (11:27→21:06)
[2019-03-07] MEDS: ATORVASTATIN CA 20 MG TABLET (FP) PO SCH (21:06)
[2019-03-08] MEDS: ACETAMINOPHEN 325 MG TABLET (FP) PO SCH ×3 (01:12→12:20)
[2019-03-08] MEDS: GABAPENTIN 100 MG CAPSULE (FP) PO SCH (06:45)
[2019-03-08 10:00] VITALS: BP 150/68; PULSE 81; TEMP 988
[2019-03-08] MEDS: FUROSEMIDE 40 MG TABLET (FP) PO SCH (10:01)
[2019-03-08] MEDS: METOPROLOL TARTRATE 50 MG TABLET (FP) PO SCH (10:01)
[2019-03-08] MEDS: ASPIRIN COATED 81 MG TABLET.EC PO SCH (10:01)
[2019-03-08] MEDS: HEPARIN NA (PORCINE) 5,000 UNITS/ML 1ML VIAL SQ SCH (10:01)
[2019-03-08] MEDS: VALSARTAN 160 MG TABLET (UD) PO SCH (10:01)
[2019-03-08] MEDS: OLANZapine 5 MG TABLET PO SCH (10:01)
--- NOTE | 2019-03-08 11:11 | PN ---
Progress Note, Physician Chief Complaint: AMS History of Present Illness: NAD pleasantly confused discharge appealed by daughter,which she lost, not accepted by SNF Pt will go home with home care services - Current Medication List Current Medications: Active Medications Acetaminophen (Tylenol -) 650 mg PO Q6H [facility] Last Admin: 03/08/19 06:45 Dose: Not Given Aspirin (Ecotrin -) 81 mg PO DAILY [facility] Last Admin: 03/08/19 10:01 Dose: 81 mg Atorvastatin Calcium (Lipitor -) 20 mg PO HS [facility] Last Admin: 03/07/19 21:06 Dose: 20 mg Furosemide (Lasix -) 40 mg PO DAILY [facility] Last Admin: 03/08/19 10:01 Dose: 40 mg Gabapentin (Neurontin -) 100 mg PO TID [facility] Last Admin: 03/08/19 06:45 Dose: Not Given Heparin Sodium (Porcine) (Heparin -) 5,000 unit SQ BID [facility] Last Admin: 03/08/19 10:01 Dose: 5,000 unit Metoprolol Tartrate (Lopressor -) 50 mg PO DAILY [facility] Last Admin: 03/08/19 10:01 Dose: 50 mg Olanzapine (Zyprexa -) 5 mg PO BID [facility] Last Admin: 03/08/19 10:01 Dose: 5 mg Valsartan (Diovan -) 320 mg PO DAILY [facility] Last Admin: 03/08/19 10:01 Dose: 320 mg - Objective Vital Signs: Vital Signs Temperature 988 F H 03/08/19 09:59 Pulse Rate 81 03/08/19 09:59 Respiratory Rate 20 03/08/19 09:59 Blood Pressure 150/68 03/08/19 09:59 O2 Sat by Pulse Oximetry (%) 95 03/07/19 21:00 Constitutional: Yes: Well Nourished, No Distress, Calm Cardiovascular: Yes: Regular Rate and Rhythm Respiratory: Yes: Regular Gastrointestinal: Yes: WNL Genitourinary: Yes: WNL Musculoskeletal: Yes: WNL Extremities: Yes: WNL Edema: No Peripheral Pulses WNL: Yes Neurological: Yes: Alert, Confusion, Pre-Existing Deficit Psychiatric: Yes: Alert Problem List - Problems (1) Altered mental status Assessment/Plan: -Increase olanzapine to 5 mg po bid -spoke to daughter, who is in agreement to be here when the ambulance is set for the patient to take her to [facility] on Tuesday. Problems reviewed: Yes Code(s): R41.82 - ALTERED MENTAL STATUS, UNSPECIFIED (2) Alzheimer disease Problems reviewed: Yes Code(s): G30.9 - ALZHEIMER'S DISEASE, UNSPECIFIED; F02.80 - DEMENTIA IN OTH DISEASES CLASSD ELSWHR W/O BEHAVRL DISTURB Assessment/Plan See problem list
== END 2019-03-08 13:18 | disposition home or self-care (01) | DRG 57 ==
LOC: J5S 11:56
PROVIDERS: ADMIT Family Medicine; ATTEND Family Medicine
DX: G30.9 Alzheimer's disease, unspecified (principal); E78.5 Hyperlipidemia, unspecified; I10 Essential (primary) hypertension; E11.9 Type 2 diabetes mellitus without complications; M54.16 Radiculopathy, lumbar region; F02.80 Dementia in other diseases classified elsewhere, unspecified severity, without behavioral disturbance, psychotic disturbance, mood disturbance, and anxiety; R41.82 Altered mental status, unspecified; E66.9 Obesity, unspecified; Z68.32 Body mass index [BMI] 32.0-32.9, adult; M54.5 Low back pain
CPT/HCPCS: J1644

== ENCOUNTER 2019-11-25 20:05 | Inpatient (IN) | payer OTHER ==
[2019-11-25 20:14] VITALS: BMI 35.2
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
[2019-11-25 21:40] LABS: EOS % 0.8 % (0-4.5); HEMATOCRIT 34.9 % (32.4-45.2); HEMOGLOBIN 12.3 GM/dL (10.7-15.3); MCH 31.8 pg (25.7-33.7); MCHC 35.2 g/dl (32.0-36.0); MEAN CELL VOLUME 90.2 fl (80-96); MEAN PLT VOLUME 6.4 fl (7.5-11.1); MONO % 8.5 % (3.8-10.2); NEUT % 56.7 % (42.8-82.8); PLATELET COUNT 217 K/MM3 (134-434); RBC 3.87 M/mm3 (3.60-5.2); RDW 13.7 % (11.6-15.6)
[2019-11-25 22:10] LABS: ALBUMIN 3.2 g/dl (3.4-5.0); BILIRUBIN,TOTAL 0.8 mg/dL (0.2-1); BLOOD UREA NITROGEN 17.5 mg/dL (7-18); CALCIUM 9.5 mg/dL (8.5-10.1); CREATININE 0.9 mg/dL (0.55-1.3)
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
[2019-11-25 23:27] LABS: EPI CELLS 6 /uL (0-25.1); HYALINE CASTS 1 /uL (0-3.1); PH,URINE 6.5 (5.0-8.0); URINE APPEARANCE CLEAR; URINE BACTERIA 36 /uL (0-1359); URINE BILIRUBIN NEGATIVE (NEGATIVE); URINE COLOR YELLOW; URINE GLUCOSE (UA) TRACE (NEGATIVE); URINE KETONE NEGATIVE (NEGATIVE); URINE LEUK ESTERASE TRACE (NEGATIVE); URINE NITRITE NEGATIVE (NEGATIVE); URINE PROTEIN NEGATIVE (NEGATIVE); URINE RBC 6 /uL (0-23.9); URINE UROBILINOGEN 0.2 mg/dL (0.2-1.0); URINE WBC 26 /uL (0-25.8)
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
[2019-11-26 07:09] LABS: BASO % 0.8 % (0-2.0); EOS % 1.2 % (0-4.5); HEMATOCRIT 36.1 % (32.4-45.2); HEMOGLOBIN 12.2 GM/dL (10.7-15.3); MCH 30.4 pg (25.7-33.7); MCHC 33.6 g/dl (32.0-36.0); MEAN CELL VOLUME 90.3 fl (80-96); MEAN PLT VOLUME 6.6 fl (7.5-11.1); MONO % 9.1 % (3.8-10.2); NEUT % 61.9 % (42.8-82.8); PLATELET COUNT 224 K/MM3 (134-434); RDW 13.8 % (11.6-15.6); WHITE BLOOD COUNT 5.3 K/mm3 (4.0-10.0)
[2019-11-26 07:58] LABS: ALBUMIN 3.1 g/dl (3.4-5.0); BLOOD UREA NITROGEN 14.7 mg/dL (7-18); CALCIUM 8.8 mg/dL (8.5-10.1); CREATININE 1.1 mg/dL (0.55-1.3); MAGNESIUM 2.2 mg/dL (1.8-2.4); POTASSIUM 3.9 mmol/L (3.5-5.1); TOT PROT 7.4 g/dl (6.4-8.2)
[2019-11-26] MEDS: INSULIN SLIDING SCALE (NOVOLOG) 1 VIAL SQ SCH ×4 (09:18→21:55)
--- NOTE | 2019-11-26 10:29 | PN ---
Progress Note, Physician - Current Medication List Current Medications: Active Medications Insulin Aspart (Novolog Vial Sliding Scale -) 1 vial SQ [facility]; Protocol Last Admin: 11/26/19 09:18 Dose: 2 units Documented by: - Objective Vital Signs: Vital Signs Temperature 97.2 F L 11/25/19 20:12 Pulse Rate 90 11/26/19 02:54 Respiratory Rate 20 11/26/19 07:57 Blood Pressure 155/92 11/26/19 02:54 O2 Sat by Pulse Oximetry (%) 97 11/26/19 07:57 Cardiovascular: Yes: S1, S2 Respiratory: Yes: Regular, CTA Bilaterally, Poor Air Entry Gastrointestinal: Yes: Normal Bowel Sounds, Soft. No: Tenderness Edema: No Neurological: Yes: Alert, Confusion Labs: CBC, BMP 11/26/19 05:53 11/26/19 05:53 Problem List - Problems (1) Acute metabolic encephalopathy Assessment/Plan: Likely secondary to advancing Dementia maybe due to Dehydration Neurology consult Neurochecks Fall Precautions Monitor vitals Monitor CBC, CMP Code(s): G93.41 - METABOLIC ENCEPHALOPATHY (2) Elevated troponin Assessment/Plan: Serial Enzymes Appreciate Cardiology consult Continue cardiac monitoring asa and lipitor on b- adrien Code(s): R79.89 - OTHER SPECIFIED ABNORMAL FINDINGS OF BLOOD CHEMISTRY (3) Dementia Code(s): F03.90 - UNSPECIFIED DEMENTIA WITHOUT BEHAVIORAL DISTURBANCE (4) Diabetes Assessment/Plan: stable BGMs ISS HgbA1c Code(s): E11.9 - TYPE 2 DIABETES MELLITUS WITHOUT COMPLICATIONS (5) Hypertension Assessment/Plan: monitor on home meds Code(s): I10 - ESSENTIAL (PRIMARY) HYPERTENSION (6) Lipidemia Assessment/Plan: lipitor Code(s): E78.5 - HYPERLIPIDEMIA, UNSPECIFIED
--- NOTE | 2019-11-26 10:32 | EKG ---
Test Reason : Blood Pressure : / mmHG Vent. Rate : 093 BPM Atrial Rate : 093 BPM P-R Int : 164 ms QRS Dur : 070 ms QT Int : 376 ms P-R-T Axes : 062 -04 053 degrees QTc Int : 467 ms NORMAL SINUS RHYTHM POSSIBLE LEFT ATRIAL ENLARGEMENT BORDERLINE ECG WHEN COMPARED WITH ECG OF 24-FEB-2019 18:53, NO SIGNIFICANT CHANGE WAS FOUND Confirmed by LADAN FERRARA MD ([id number]) on 11/26/2019 10:31:39 AM Referred By: Confirmed By:LADAN FERRARA MD
[2019-11-26] MEDS ORDERED: ACETAMINOPHEN 325 MG TABLET (FP) ONE (12:21)
[2019-11-26] MEDS ORDERED: METOPROLOL TARTRATE 50 MG TABLET (FP) ONE (12:21)
[2019-11-26] MEDS ORDERED: VALSARTAN 80 MG TABLET (UD) ONE (12:22)
[2019-11-26] MEDS: ACETAMINOPHEN 325 MG TABLET (FP) PO SCH ×3 (12:33→22:59)
[2019-11-26] MEDS: METOPROLOL TARTRATE 50 MG TABLET (FP) PO SCH (12:33)
[2019-11-26] MEDS: VALSARTAN 160 MG TABLET (UD) PO SCH (12:33)
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
[2019-11-26] MEDS ORDERED: GABAPENTIN 100 MG CAPSULE ONE (14:19)
[2019-11-26] MEDS: GABAPENTIN 100 MG CAPSULE PO SCH ×2 (14:22→21:55)
[2019-11-26] MEDS ORDERED: OLANZapine 5 MG TABLET PO ONE (16:15)
[2019-11-26] MEDS ORDERED: HALOPERIDOL LACTATE 5 MG/ML IM PRN (18:31)
[2019-11-26] MEDS: OLANZapine 5 MG TABLET PO SCH (21:55)
[2019-11-26] MEDS: ATORVASTATIN CA 20 MG TABLET (FP) PO SCH (21:55)
[2019-11-27] MEDS: ACETAMINOPHEN 325 MG TABLET (FP) PO SCH ×4 (06:18→23:09)
[2019-11-27] MEDS: GABAPENTIN 100 MG CAPSULE PO SCH ×3 (06:18→22:01)
[2019-11-27] MEDS: INSULIN SLIDING SCALE (NOVOLOG) 1 VIAL SQ SCH ×4 (06:40→22:01)
--- NOTE | 2019-11-27 07:37 | PN ---
Progress Note, Physician Chief Complaint: ASLEEP SEDATED ON HALDOL ON 1:1 FOR AGITATION - Current Medication List Current Medications: Active Medications Acetaminophen (Tylenol -) 650 mg PO Q6HPO [facility] Last Admin: 11/27/19 06:18 Dose: 650 mg Documented by: Aspirin (Ecotrin -) 81 mg PO DAILY [facility] Atorvastatin Calcium (Lipitor -) 20 mg PO HS [facility] Last Admin: 11/26/19 21:55 Dose: 20 mg Documented by: Gabapentin (Neurontin -) 100 mg PO TID [facility] Last Admin: 11/27/19 06:18 Dose: 100 mg Documented by: Haloperidol (Haldol Injection (Fast Acting) -) 5 mg IM Q4H PRN PRN Reason: ANXIETY Last Admin: 11/26/19 21:05 Dose: 5 mg Documented by: Insulin Aspart (Novolog Vial Sliding Scale -) 1 vial SQ ACHS [facility]; Protocol Last Admin: 11/27/19 06:40 Dose: 2 units Documented by: Metoprolol Tartrate (Lopressor -) 50 mg PO DAILY [facility] Last Admin: 11/26/19 12:33 Dose: 50 mg Documented by: Olanzapine (Zyprexa -) 5 mg PO BID [facility] Last Admin: 11/26/19 21:55 Dose: 5 mg Documented by: Valsartan (Diovan -) 320 mg PO DAILY [facility] Last Admin: 11/26/19 12:33 Dose: 320 mg Documented by: - Objective Vital Signs: Vital Signs Temperature 97.5 F L 11/27/19 01:56 Pulse Rate 72 11/27/19 01:56 Respiratory Rate 18 11/27/19 01:56 Blood Pressure 148/77 11/27/19 01:56 O2 Sat by Pulse Oximetry (%) 94 L 11/26/19 21:00 Constitutional: Yes: Moderate Distress Cardiovascular: Yes: Regular Rate and Rhythm Respiratory: Yes: WNL Gastrointestinal: Yes: Soft Musculoskeletal: Yes: WNL Neurological: Yes: Confusion Psychiatric: Yes: Agitated Labs: CBC, BMP 11/26/19 05:53 11/26/19 05:53 Problem List - Problems (1) Acute metabolic encephalopathy Code(s): G93.41 - METABOLIC ENCEPHALOPATHY (2) Altered mental status Code(s): R41.82 - ALTERED MENTAL STATUS, UNSPECIFIED (3) Alzheimer disease Code(s): G30.9 - ALZHEIMER'S DISEASE, UNSPECIFIED; F02.80 - DEMENTIA IN OTH DISEASES CLASSD ELSWHR W/O BEHAVRL DISTURB (4) Anxiety about health Code(s): F41.8 - OTHER SPECIFIED ANXIETY DISORDERS (5) Hypertension Code(s): I10 - ESSENTIAL (PRIMARY) HYPERTENSION (6) Elevated troponin Code(s): R79.89 - OTHER SPECIFIED ABNORMAL FINDINGS OF BLOOD CHEMISTRY Assessment/Plan ON TELEMETRY EVALUATE FOR TROPONIN ELEVATION MONITOR LABS 1:1 FOR SAFETY PSYCHIATRY AND NEUROLOGY EVAL FOR MEDICATION 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 PSYCH EVAL APPRECIATED
[2019-11-27] MEDS: METOPROLOL TARTRATE 50 MG TABLET (FP) PO SCH (09:40)
[2019-11-27] MEDS: ASPIRIN COATED 81 MG TABLET.EC PO SCH (09:40)
[2019-11-27] MEDS: VALSARTAN 160 MG TABLET (UD) PO SCH (09:40)
[2019-11-27] MEDS: OLANZapine 5 MG TABLET PO SCH (09:40)
[2019-11-27] MEDS ORDERED: HALOPERIDOL DECANOATE 100 MG/ML IM ONE (15:25)
--- NOTE | 2019-11-27 15:25 | CON.PSY ---
Psychiatry Consult Chief Complaint: 74 Year old female with worsening DEmentia Alz type and other chronic medical illnesses seen for Psych eval.. Case discussed with staff.. Reports of worsening Physical aggression and severe behavioral disturbances.. On 1:1. Restless and attempting to get out of Bed. Poor response to [facility] Psych meds. Symptoms: reports: Memory Impairment, Restlessness, Disorganized/Disruptive Thoughts, Oppositionalism - Previous Psychiatric Treatment Outpatient: None Inpatient: None - Previous Substance Abuse Treatment Outpatient: None Inpatient: None - Current Medications Current Medications: Active Medications Acetaminophen (Tylenol -) 650 mg PO Q6HPO [facility] Last Admin: 11/27/19 11:50 Dose: Not Given Documented by: Aspirin (Ecotrin -) 81 mg PO DAILY [facility] Last Admin: 11/27/19 09:40 Dose: 81 mg Documented by: Atorvastatin Calcium (Lipitor -) 20 mg PO HS [facility] Last Admin: 11/26/19 21:55 Dose: 20 mg Documented by: Gabapentin (Neurontin -) 100 mg PO TID [facility] Last Admin: 11/27/19 14:20 Dose: 100 mg Documented by: Haloperidol (Haldol Injection (Fast Acting) -) 5 mg IM Q4H PRN PRN Reason: ANXIETY Last Admin: 11/26/19 21:05 Dose: 5 mg Documented by: Insulin Aspart (Novolog Vial Sliding Scale -) 1 vial SQ [facility]; Protocol Last Admin: 11/27/19 11:49 Dose: 2 units Documented by: Metoprolol Tartrate (Lopressor -) 50 mg PO DAILY [facility] Last Admin: 11/27/19 09:40 Dose: 50 mg Documented by: Olanzapine (Zyprexa -) 5 mg PO BID [facility] Last Admin: 11/27/19 09:40 Dose: 5 mg Documented by: Valsartan (Diovan -) 320 mg PO DAILY [facility] Last Admin: 11/27/19 09:40 Dose: 320 mg Documented by: - Allergies Allergies: Allergies Allergy/AdvReac Type Severity Reaction Status Date / Time No Known Allergies Allergy Verified 02/24/19 17:24 - Current Living Status Usual Living Arrangement: Alone - Current Mental Status Evaluation Appearance: Disheveled Attitude: Belligerent - Affect Affect: Labile Appropriateness: Not Appropriate - Mood Mood: Angry - Speech/Language Expressive: Incoherent Receptive: Unable to Receive/Comprehend Spoken Words - Psychomotor Activity Psychomotor Activity: Agitated - Thought Process Thought Process: [place] - Thought Content Hallucinations: Absent Delusions: Absent - Self Perception Self Perception: Depersonalization, Derealization - Cognition Attention: Diminished Orientation: Time, Person, Place Memory, Immediate Recall: Impaired Memory, Short Term: 0/3 Memory, Remote with Promptin/3 - Concentration Serial Sevens Intact: No Simple Calculations Intact: No - Abstraction Proverb Interpretation: Idiosyncratic Judgement: Severely Impaired - Insight Insight: Impaired - Impulse Control Impulse Control: Severly Impaired - Suicidal Ideation Suicidal Ideation: No - Homicidal Ideation Homicidal Ideation: No Assessment/Plan 1) Haldol Decanoate 25 mg im q 2 weeks. 2) will adjust Zyprexa dose.
--- NOTE | 2019-11-27 15:36 | PN ---
Progress Note, Physician Chief Complaint: The patient appears comfortable and less agitated at the time of exam. She denies chest alaniz. No shortness of breath at rest. Telemetry reviewed, it showed sinus rhythm without arrhythmia. History of Present Illness: 74 year-old woman with a PMHx of HTN, HLD, borderline diabetes, Alzheimer's dementia, chronic back pain due to chronic lumbar radiculopathy s/p laminectomy of L3-L4 bought to ED 11/25/19 from home for aggressive behavior. Patient had episodic worsening behavior issue with increasing agitation. ECG 11/25/19 showed sinus rhythm without ischemic changes. CXR and CT head unremarkable. Troponin was mildly elevated and trended down: 0.10->0.13->0.10. - Current Medication List Current Medications: Active Medications Acetaminophen (Tylenol -) 650 mg PO Q6HPO [facility] Last Admin: 11/27/19 11:50 Dose: Not Given Documented by: Aspirin (Ecotrin -) 81 mg PO DAILY [facility] Last Admin: 11/27/19 09:40 Dose: 81 mg Documented by: Atorvastatin Calcium (Lipitor -) 20 mg PO HS [facility] Last Admin: 11/26/19 21:55 Dose: 20 mg Documented by: Gabapentin (Neurontin -) 100 mg PO TID [facility] Last Admin: 11/27/19 14:20 Dose: 100 mg Documented by: Haloperidol (Haldol Injection (Fast Acting) -) 5 mg IM Q4H PRN PRN Reason: ANXIETY Last Admin: 11/26/19 21:05 Dose: 5 mg Documented by: Haloperidol Decanoate (Haldol Decanoate (Long-Acting) -) 25 mg IM ONCE ONE Stop: 11/27/19 15:26 Insulin Aspart (Novolog Vial Sliding Scale -) 1 vial SQ [facility]; Protocol Last Admin: 11/27/19 11:49 Dose: 2 units Documented by: Metoprolol Tartrate (Lopressor -) 50 mg PO DAILY [facility] Last Admin: 11/27/19 09:40 Dose: 50 mg Documented by: Valsartan (Diovan -) 320 mg PO DAILY [facility] Last Admin: 11/27/19 09:40 Dose: 320 mg Documented by: - Objective Vital Signs: Vital Signs Temperature 98.3 F 11/27/19 14:00 Pulse Rate 70 11/27/19 14:00 Respiratory Rate 20 11/27/19 14:00 Blood Pressure 162/84 11/27/19 14:00 O2 Sat by Pulse Oximetry (%) 95 11/27/19 10:00 General: Well developed. Well nourished. No acute distress. Head: Normocephalic. Atraumatic, Eyes: PERRLA, EOMI. Sclerae anicteric. Conjunctivae clear. Neck: Supple. No JVD. No bruits. Heart: Normal S1, S2: Regular rhythm and rate. No murmur. No gallop or rub. Lungs: Symmetrical air entry. Clear to auscultation. No crackles. No wheezing or rhonchi. Abdomen: Soft. Bowel sound positive. Non tender. No masses. Extremities: No edema. No clubbing or cyanosis. PD 2+, equal bilaterally. Neuro: Awake and alert. Labs: CBC, BMP 11/26/19 05:53 11/26/19 05:53 Assessment/Plan 74 year-old woman with a PMHx of HTN, HLD, borderline diabetes, Alzheimer's dementia, chronic back pain due to chronic lumbar radiculopathy s/p laminectomy of L3-L4 bought to ED 11/25/19 from home for aggressive behavior. Patient had episodic worsening behavior issue with increasing agitation. ECG 11/25/19 showed sinus rhythm without ischemic changes. CXR and CT head unremarkable. Troponin was mildly elevated and trended down: 0.10->0.13->0.10. Mildly elevated troponin with normal ECG: NSTEMI. The patient has aggressive behavior, likely due to worsening dementia. Seen by psych. Conservative cardiac care. Continue aspirin, atorvastatin and metoprolol Echo to rule out wall motion abnormalities if possible. May discontinue tele. We will follow the patient with you.
--- NOTE | 2019-11-27 20:04 | CONSULT ---
Consult - text type - Consultation Consultation Note: NEUROLOGY CONSULTATION is greatly appreciated: Events reviewed and discussed with Dr. Pat this AM. This 74 yo RH woman with H/O HTN, HLD is well-known to me with advanced dementia c/w Alzheimer's Disease (AD). Maintained on: Valsartan, metoprolol, insulin, Gabapentin, Olanzepine (5 mg BID), ?Lorazepam (1 mg TID). Now admitted with increasing agitation and aggressive behavior including striking caregivers. Dr. Waldrop's consultation read and appreciated. In addition to olanzepine, Pt has been refractory to Valproic acid, benzodiazepines, etc. When last seen by me (02/26/19) patient was reportedly ambulatory at home. Current ambulation status uncertain. Patient given haldol 5 mg IM with calming response. CT of head (reviewed): Moderately severe, diffuse atrophy and severe, diffuse microvascular changes. Glu > 240 mg %. Urine WBC= 26 TAMICA: No head trauma. No bruits. Cor reg NEURO: Awake, alert, allowing examination. In [place] restraint. Constant babbling in Italian. Follows no commands in Qatari. ++Glabela, snout, suck grasps, palmomentsls Full zaragoza to threat. No facial. Full eom's. gag Ok Sl rigid tone with some cogwheeling. Moves all 4's well. normal reflexes. Toes downgoing Reacts to touch all fours. IMP: Non-focal exam sig for moderately severe, B/L cerebral dysfunction (OMS/chronic) c/w Alzheimer's disease. SUGGEST: Haldol decanoate, as per Dr. Waldrop. Taper olanzepine and try to avoid polypharmacy with neuroleptics. Check if patient was on Lorazepam at home. If not, do not resume. If so, taper very slowly. Haldol Rx is causing some extrapyramidal features that will affect gait- Mobilize patient OO Bed to chair and have patient assessed by PT for gait safety prior to D/C Check B12, TSH, RPR and repeat UA. C&S to exclude occult infection. If sleep, sundowning is an issue would Rx Quetiapine HS if Dr. Waldrop agrees. Thank you very much, Flip Conte MD
[2019-11-27] MEDS: ATORVASTATIN CA 20 MG TABLET (FP) PO SCH (22:01)
[2019-11-27] MEDS: LORazepam 1 MG TABLET PO SCH (22:01)
[2019-11-28] MEDS: LORazepam 1 MG TABLET PO SCH (06:09)
[2019-11-28] MEDS: GABAPENTIN 100 MG CAPSULE PO SCH ×3 (06:09→21:06)
[2019-11-28] MEDS: ACETAMINOPHEN 325 MG TABLET (FP) PO SCH ×4 (06:10→23:10)
[2019-11-28] MEDS: INSULIN SLIDING SCALE (NOVOLOG) 1 VIAL SQ SCH ×4 (06:59→21:24)
--- NOTE | 2019-11-28 07:35 | PN ---
Progress Note, Physician Chief Complaint: ASLEEP SEDATED PATIENT ON 1:1 FOR AGITATION - Current Medication List Current Medications: Active Medications Acetaminophen (Tylenol -) 650 mg PO Q6HPO [facility] Last Admin: 11/28/19 06:10 Dose: 650 mg Documented by: Aspirin (Ecotrin -) 81 mg PO DAILY [facility] Last Admin: 11/27/19 09:40 Dose: 81 mg Documented by: Atorvastatin Calcium (Lipitor -) 20 mg PO HS [facility] Last Admin: 11/27/19 22:01 Dose: Not Given Documented by: Gabapentin (Neurontin -) 100 mg PO TID [facility] Last Admin: 11/28/19 06:09 Dose: 100 mg Documented by: Insulin Aspart (Novolog Vial Sliding Scale -) 1 vial SQ ACHS [facility]; Protocol Last Admin: 11/28/19 06:59 Dose: 2 units Documented by: Metoprolol Tartrate (Lopressor -) 50 mg PO DAILY [facility] Last Admin: 11/27/19 09:40 Dose: 50 mg Documented by: Valsartan (Diovan -) 320 mg PO DAILY [facility] Last Admin: 11/27/19 09:40 Dose: 320 mg Documented by: - Objective Vital Signs: Vital Signs Temperature 97.4 F L 11/28/19 06:00 Pulse Rate 82 11/28/19 06:00 Respiratory Rate 18 11/28/19 06:00 Blood Pressure 146/78 11/28/19 06:00 O2 Sat by Pulse Oximetry (%) 95 11/28/19 06:00 Constitutional: Yes: Mild Distress Cardiovascular: Yes: Regular Rate and Rhythm Respiratory: Yes: Regular Gastrointestinal: Yes: Soft Genitourinary: Yes: Incontinence Musculoskeletal: Yes: Muscle Weakness Integumentary: Yes: WNL Neurological: Yes: Confusion, Pre-Existing Deficit Psychiatric: Yes: Agitated Labs: CBC, BMP 11/26/19 05:53 11/26/19 05:53 Problem List - Problems (1) Acute metabolic encephalopathy Code(s): G93.41 - METABOLIC ENCEPHALOPATHY (2) Altered mental status Code(s): R41.82 - ALTERED MENTAL STATUS, UNSPECIFIED (3) Alzheimer disease Code(s): G30.9 - ALZHEIMER'S DISEASE, UNSPECIFIED; F02.80 - DEMENTIA IN OTH DISEASES CLASSD ELSWHR W/O BEHAVRL DISTURB (4) Anxiety about health Code(s): F41.8 - OTHER SPECIFIED ANXIETY DISORDERS (5) Hypertension Code(s): I10 - ESSENTIAL (PRIMARY) HYPERTENSION (6) Elevated troponin Code(s): R79.89 - OTHER SPECIFIED ABNORMAL FINDINGS OF BLOOD CHEMISTRY Assessment/Plan ON TELEMETRY EVALUATE FOR TROPONIN ELEVATION MONITOR LABS 1:1 FOR SAFETY PSYCHIATRY AND NEUROLOGY EVAL FOR MEDICATION 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 PSYCH EVAL APPRECIATED
[2019-11-28] MEDS: METOPROLOL TARTRATE 50 MG TABLET (FP) PO SCH (11:59)
[2019-11-28] MEDS: VALSARTAN 160 MG TABLET (UD) PO SCH (12:00)
[2019-11-28] MEDS: ASPIRIN COATED 81 MG TABLET.EC PO SCH (12:00)
--- NOTE | 2019-11-28 15:37 | PN ---
Progress Note, Physician Chief Complaint: The patient appears comfortable and less agitated at the time of exam. She denies chest alaniz. No shortness of breath at rest. Telemetry discontinued. Tele records yesterday and this morning reviewed, it showed sinus rhythm 70-80s bpm without arrhythmia. History of Present Illness: 74 year-old woman with a PMHx of HTN, HLD, borderline diabetes, Alzheimer's dementia, chronic back pain due to chronic lumbar radiculopathy s/p laminectomy of L3-L4 bought to ED 11/25/19 from home for aggressive behavior. Patient had episodic worsening behavior issue with increasing agitation. ECG 11/25/19 showed sinus rhythm without ischemic changes. CXR and CT head unremarkable. Troponin was mildly elevated and trended down: 0.10->0.13->0.10. - Current Medication List Current Medications: Active Medications Acetaminophen (Tylenol -) 650 mg PO Q6HPO [facility] Last Admin: 11/28/19 12:00 Dose: 650 mg Documented by: Aspirin (Ecotrin -) 81 mg PO DAILY [facility] Last Admin: 11/28/19 12:00 Dose: 81 mg Documented by: Atorvastatin Calcium (Lipitor -) 20 mg PO HS [facility] Last Admin: 11/27/19 22:01 Dose: Not Given Documented by: Gabapentin (Neurontin -) 100 mg PO TID [facility] Last Admin: 11/28/19 13:57 Dose: 100 mg Documented by: Insulin Aspart (Novolog Vial Sliding Scale -) 1 vial SQ [facility]; Protocol Last Admin: 11/28/19 11:59 Dose: 2 units Documented by: Metoprolol Tartrate (Lopressor -) 50 mg PO DAILY [facility] Last Admin: 11/28/19 11:59 Dose: 50 mg Documented by: Mirtazapine (Remeron -) 7.5 mg PO [facility] Valsartan (Diovan -) 320 mg PO DAILY [facility] Last Admin: 11/28/19 12:00 Dose: 320 mg Documented by: - Objective Vital Signs: Vital Signs Temperature 98.3 F 11/28/19 13:37 Pulse Rate 84 11/28/19 13:37 Respiratory Rate 18 11/28/19 13:37 Blood Pressure 113/63 11/28/19 13:37 O2 Sat by Pulse Oximetry (%) 96 11/28/19 10:00 General: Well developed. Well nourished. No acute distress. Head: Normocephalic. Atraumatic, Eyes: PERRLA, EOMI. Sclerae anicteric. Conjunctivae clear. Neck: Supple. No JVD. No bruits. Heart: Normal S1, S2: Regular rhythm and rate. No murmur. No gallop or rub. Lungs: Symmetrical air entry. Clear to auscultation. No crackles. No wheezing or rhonchi. Abdomen: Soft. Bowel sound positive. Non tender. No masses. Extremities: No edema. No clubbing or cyanosis. Labs: CBC, BMP 11/26/19 05:53 11/26/19 05:53 Assessment/Plan 74 year-old woman with a PMHx of HTN, HLD, borderline diabetes, Alzheimer's dementia, chronic back pain due to chronic lumbar radiculopathy s/p laminectomy of L3-L4 bought to ED 11/25/19 from home for aggressive behavior. Patient had episodic worsening behavior issue with increasing agitation. ECG 11/25/19 showed sinus rhythm without ischemic changes. CXR and CT head unremarkable. Troponin was mildly elevated and trended down: 0.10->0.13->0.10. Mildly elevated troponin with normal ECG: NSTEMI. The patient has aggressive behavior, likely due to worsening dementia. Seen by psych. Conservative cardiac care. Continue aspirin, atorvastatin and metoprolol Tele was discontinued. Please do not hesitate to call us for reconsult at any time if any further questions or additional issue arises regarding this patient.
[2019-11-28] MEDS: MIRTAZAPINE 15 MG TABLET (FP) PO SCH (21:05)
[2019-11-28] MEDS: ATORVASTATIN CA 20 MG TABLET (FP) PO SCH (21:05)
[2019-11-29] MEDS: ACETAMINOPHEN 325 MG TABLET (FP) PO SCH ×3 (05:27→17:57)
[2019-11-29] MEDS: GABAPENTIN 100 MG CAPSULE PO SCH ×3 (05:27→22:12)
[2019-11-29] MEDS: INSULIN SLIDING SCALE (NOVOLOG) 1 VIAL SQ SCH ×4 (07:01→22:13)
[2019-11-29 07:47] LABS: HEMATOCRIT 42.4 % (32.4-45.2); HEMOGLOBIN 14.4 GM/dL (10.7-15.3); MCH 30.6 pg (25.7-33.7); MCHC 33.9 g/dl (32.0-36.0); MEAN CELL VOLUME 90.2 fl (80-96); MEAN PLT VOLUME 7.1 fl (7.5-11.1); PLATELET COUNT 286 K/MM3 (134-434); RDW 13.9 % (11.6-15.6); WHITE BLOOD COUNT 10.9 K/mm3 (4.0-10.0)
[2019-11-29 08:17] LABS: ALBUMIN 3.8 g/dl (3.4-5.0); BILIRUBIN,TOTAL 1.6 mg/dL (0.2-1); BLOOD UREA NITROGEN 25.4 mg/dL (7-18); CALCIUM 9.5 mg/dL (8.5-10.1); MAGNESIUM 2.5 mg/dL (1.8-2.4); POTASSIUM 4.4 mmol/L (3.5-5.1); TOT PROT 7.9 g/dl (6.4-8.2)
[2019-11-29] MEDS: METOPROLOL TARTRATE 50 MG TABLET (FP) PO SCH (09:41)
[2019-11-29] MEDS: ASPIRIN COATED 81 MG TABLET.EC PO SCH (09:41)
[2019-11-29] MEDS: VALSARTAN 160 MG TABLET (UD) PO SCH (09:41)
[2019-11-29] MEDS ORDERED: HALOPERIDOL LACTATE 5 MG/ML IM ONE (13:45)
--- NOTE | 2019-11-29 14:10 | PN ---
Progress Note, Physician Chief Complaint: STILL AGGRESSIVE, COMBATIVE SCREAMING - Current Medication List Current Medications: Active Medications Acetaminophen (Tylenol -) 650 mg PO Q6HPO [facility] Last Admin: 11/29/19 11:55 Dose: Not Given Documented by: Aspirin (Ecotrin -) 81 mg PO DAILY [facility] Last Admin: 11/29/19 09:41 Dose: 81 mg Documented by: Atorvastatin Calcium (Lipitor -) 20 mg PO HS [facility] Last Admin: 11/28/19 21:05 Dose: 20 mg Documented by: Gabapentin (Neurontin -) 100 mg PO TID [facility] Last Admin: 11/29/19 13:37 Dose: 100 mg Documented by: Insulin Aspart (Novolog Vial Sliding Scale -) 1 vial SQ ACHS [facility]; Protocol Last Admin: 11/29/19 11:33 Dose: 6 units Documented by: Metoprolol Tartrate (Lopressor -) 50 mg PO DAILY [facility] Last Admin: 11/29/19 09:41 Dose: 50 mg Documented by: Mirtazapine (Remeron -) 7.5 mg PO [facility] Last Admin: 11/28/19 21:05 Dose: 7.5 mg Documented by: Quetiapine Fumarate (Seroquel -) 100 mg PO [facility] Valsartan (Diovan -) 320 mg PO DAILY [facility] Last Admin: 11/29/19 09:41 Dose: 320 mg Documented by: - Objective Vital Signs: Vital Signs Temperature 98.2 F 11/29/19 09:00 Pulse Rate 93 H 11/29/19 13:18 Respiratory Rate 18 11/29/19 13:18 Blood Pressure 158/90 11/29/19 13:18 O2 Sat by Pulse Oximetry (%) 98 11/29/19 09:00 Constitutional: Yes: Mild Distress, Moderate Distress Cardiovascular: Yes: Regular Rate and Rhythm Respiratory: Yes: WNL Gastrointestinal: Yes: WNL Genitourinary: Yes: Incontinence Musculoskeletal: Yes: Muscle Weakness Neurological: Yes: Confusion Psychiatric: Yes: Agitated Labs: CBC, BMP 11/29/19 06:52 11/29/19 06:52 Problem List - Problems (1) Acute metabolic encephalopathy Code(s): G93.41 - METABOLIC ENCEPHALOPATHY (2) Altered mental status Code(s): R41.82 - ALTERED MENTAL STATUS, UNSPECIFIED (3) Alzheimer disease Code(s): G30.9 - ALZHEIMER'S DISEASE, UNSPECIFIED; F02.80 - DEMENTIA IN OTH DISEASES CLASSD ELSWHR W/O BEHAVRL DISTURB (4) Anxiety about health Code(s): F41.8 - OTHER SPECIFIED ANXIETY DISORDERS (5) Hypertension Code(s): I10 - ESSENTIAL (PRIMARY) HYPERTENSION (6) Elevated troponin Code(s): R79.89 - OTHER SPECIFIED ABNORMAL FINDINGS OF BLOOD CHEMISTRY Assessment/Plan ON TELEMETRY EVALUATE FOR TROPONIN ELEVATION MONITOR LABS 1:1 FOR SAFETY PSYCHIATRY AND NEUROLOGY EVAL FOR MEDICATION REVIEW PATIENT HAS BEEN COMBATIVE ALL DAY NEED ANOTHER COMBINATION OF MEDS ADDING SERAQUEL 100MG HS HALDOL PRN EXTRAPYRAMIDAL EFFECTS NOT AN ISSUE WITH HER BEING HOMEBOUND AND NOT AMBULATING WITHOUT HER AID 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 PSYCH EVAL APPRECIATED
[2019-11-29] MEDS: MIRTAZAPINE 15 MG TABLET (FP) PO SCH (22:12)
[2019-11-29] MEDS: ATORVASTATIN CA 20 MG TABLET (FP) PO SCH (22:12)
[2019-11-29] MEDS: QUEtiapine FUMARATE 100 MG TABLET (FP) PO SCH (22:13)
[2019-11-29] MEDS: HEPARIN NA (PORCINE) 5,000 UNITS/ML 1ML VIAL SQ SCH (22:13)
[2019-11-30] MEDS: ACETAMINOPHEN 325 MG TABLET (FP) PO SCH ×4 (00:55→18:03)
[2019-11-30] MEDS: GABAPENTIN 100 MG CAPSULE PO SCH ×3 (06:00→22:56)
[2019-11-30] MEDS: INSULIN SLIDING SCALE (NOVOLOG) 1 VIAL SQ SCH ×4 (06:01→22:56)
--- NOTE | 2019-11-30 08:01 | PN ---
Progress Note, Physician - Current Medication List Current Medications: Active Medications Acetaminophen (Tylenol -) 650 mg PO Q6HPO [facility] Last Admin: 11/30/19 06:00 Dose: 650 mg Documented by: Aspirin (Ecotrin -) 81 mg PO DAILY [facility] Last Admin: 11/29/19 09:41 Dose: 81 mg Documented by: Atorvastatin Calcium (Lipitor -) 20 mg PO HS [facility] Last Admin: 11/29/19 22:12 Dose: 20 mg Documented by: Gabapentin (Neurontin -) 100 mg PO TID [facility] Last Admin: 11/30/19 06:00 Dose: 100 mg Documented by: Heparin Sodium (Porcine) (Heparin -) 5,000 unit SQ BID [facility] Last Admin: 11/29/19 22:13 Dose: 5,000 unit Documented by: Insulin Aspart (Novolog Vial Sliding Scale -) 1 vial SQ ACHS [facility]; Protocol Last Admin: 11/30/19 06:01 Dose: 2 units Documented by: Metoprolol Tartrate (Lopressor -) 50 mg PO DAILY [facility] Last Admin: 11/29/19 09:41 Dose: 50 mg Documented by: Mirtazapine (Remeron -) 7.5 mg PO [facility] Last Admin: 11/29/19 22:12 Dose: 7.5 mg Documented by: Quetiapine Fumarate (Seroquel -) 100 mg PO [facility] Last Admin: 11/29/19 22:13 Dose: 100 mg Documented by: Valsartan (Diovan -) 320 mg PO DAILY [facility] Last Admin: 11/29/19 09:41 Dose: 320 mg Documented by: - Objective Vital Signs: Vital Signs Temperature 98.4 F 11/30/19 06:00 Pulse Rate 81 11/30/19 06:00 Respiratory Rate 18 11/30/19 06:00 Blood Pressure 109/58 L 11/30/19 06:00 O2 Sat by Pulse Oximetry (%) 95 11/30/19 06:00 Cardiovascular: Yes: Regular Rate and Rhythm Respiratory: Yes: Regular, CTA Bilaterally Gastrointestinal: Yes: Normal Bowel Sounds, Soft Labs: CBC, BMP 11/29/19 06:52 11/29/19 06:52 Problem List - Problems (1) Acute metabolic encephalopathy Assessment/Plan: Likely secondary to advancing Dementia Neurology consult 1:1 Fall Precautions Code(s): G93.41 - METABOLIC ENCEPHALOPATHY (2) Elevated troponin Assessment/Plan: Appreciate Cardiology consult asa and lipitor on b- adrien Code(s): R79.89 - OTHER SPECIFIED ABNORMAL FINDINGS OF BLOOD CHEMISTRY (3) Dementia Assessment/Plan: with agitation on seroquel neuro and psych follow up Code(s): F03.90 - UNSPECIFIED DEMENTIA WITHOUT BEHAVIORAL DISTURBANCE (4) Diabetes Assessment/Plan: BGMs ISS HgbA1c Code(s): E11.9 - TYPE 2 DIABETES MELLITUS WITHOUT COMPLICATIONS (5) Hypertension Assessment/Plan: monitor on home meds Vital Signs Period Temp Pulse Resp BP Sys/Tiwari Pulse Ox Last 24 Hr 97.4 F-99.2 F 71-106 18-18 109-158/56-90 95-98 Code(s): I10 - ESSENTIAL (PRIMARY) HYPERTENSION (6) Lipidemia Assessment/Plan: lipitor Code(s): E78.5 - HYPERLIPIDEMIA, UNSPECIFIED
[2019-11-30] MEDS: METOPROLOL TARTRATE 50 MG TABLET (FP) PO SCH (10:01)
[2019-11-30] MEDS: HEPARIN NA (PORCINE) 5,000 UNITS/ML 1ML VIAL SQ SCH ×2 (10:02→22:56)
[2019-11-30] MEDS: ASPIRIN COATED 81 MG TABLET.EC PO SCH (10:02)
[2019-11-30] MEDS: VALSARTAN 160 MG TABLET (UD) PO SCH (10:02)
--- NOTE | 2019-11-30 11:04 | CON.NEURO ---
Consult Consult Specialty:: [facility] Referred by:: Family Reason for Consultation:: Confusion - History of Present Illness History of Present Illness: at the request of the patient's daughter who called me yesterday to evaluate her mother and after the permission of the primary care doctor who referred me the patient to the office and I saw her 10 days ago as an outpatient high presents today to evaluate the patient for neurological consultation and evaluation. Patient is a very pleasant 74-year-old right-handed woman Lao speaking with a history of high blood pressure history of high cholesterol came into the hospital with increasing confusion difficulty sleeping at night patient was admitted initially to tolerate treatment patient was evaluated by psychiatry. Patient is on one-to-one patient has been moved to the regular floor. - History Source History Provided By: Medical Record Limitations to Obtaining History: Clinical Condition - Past Medical History LOIN TRIMMER: Yes: Alzheimer's, Dementia Cardio/Vascular: Yes: HTN, Hyperlipdemia Musculoskeletal: Yes: Chronic low back pain Endocrine: Yes: Diabetes Mellitus - Past Surgical History Past Surgical History: Yes: Laminectomy (s/p laminectomy of L3-L4) - Alcohol/Substance Use Hx Alcohol Use: No History of Substance Use: reports: None - Smoking History Smoking history: Unknown if ever smoked Have you smoked in the past 12 months: No - Social History Usual Living Arrangement: Alone ADL: Family Assistance History of Recent Travel: No Home Medications - Allergies Allergies/Adverse Reactions: Allergies Allergy/AdvReac Type Severity Reaction Status Date / Time No Known Allergies Allergy Verified 02/24/19 17:24 - Home Medications Home Medications: Ambulatory Orders Aspirin [Aspirin EC] 81 mg PO DAILY 12/28/18 Metoprolol Tartrate [Lopressor -] 50 mg PO DAILY 12/28/18 Simvastatin 40 mg PO HS 12/28/18 Acetaminophen [Tylenol] 650 mg PO Q6H 01/31/19 Furosemide [Lasix] 40 mg PO DAILY 01/31/19 Valsartan 320 mg PO DAILY 01/31/19 Atorvastatin Ca [Lipitor] 20 mg PO HS tablet 02/28/19 Gabapentin [Neurontin -] 100 mg PO TID capsule 02/28/19 Olanzapine [Zyprexa -] 2.5 mg PO AM tablet 02/28/19 Olanzapine [Zyprexa -] 5 mg PO HS tablet 02/28/19 Olanzapine [Zyprexa -] 5 mg PO BID #60 tablet 03/05/19 Valsartan [Diovan] 320 mg PO DAILY #30 tablet 03/05/19 Olanzapine [Zyprexa -] 5 mg PO BID #60 tablet 03/08/19 Valsartan 320 mg PO DAILY #30 tablet 03/08/19 Family Medical History Family History: Unable to Obtain Review of Systems - Review of Systems Constitutional: reports: No Symptoms Eyes: reports: No Symptoms HENT: reports: No Symptoms Neurological: reports: Dizziness, Headache, Incoordination, Numbness Physical Exam-Neuro Vital Signs: Vital Signs Temperature 99.2 F 11/30/19 10:00 Pulse Rate 106 H 11/30/19 10:00 Respiratory Rate 18 11/30/19 10:00 Blood Pressure 140/56 L 11/30/19 10:00 O2 Sat by Pulse Oximetry (%) 97 11/30/19 10:00 Labs: CBC, BMP 11/29/19 06:52 11/29/19 06:52 - Neuro Exam Level Of Consciousness: Yes: Oriented to Person Eyes: Yes: PERRLA Speech: WNL Dominant Hand: Right Cranial Nerves II-XII Intact: Yes Gag: Present DTR's: 1+ Left Bicep, 1+ Right Bicep, 1+ Left Tricep, 1+ Right Tricep Response to light touch: Normal Response to pain prick: Normal Response to temperature: Normal Motor Strength: 3/5: Left Arm, Right Arm, Left Leg, Right Leg Gait: Deferred Problem List - Problems (1) Acute metabolic encephalopathy Code(s): G93.41 - METABOLIC ENCEPHALOPATHY (2) Alzheimer disease Code(s): G30.9 - ALZHEIMER'S DISEASE, UNSPECIFIED; F02.80 - DEMENTIA IN OTH DISEASES CLASSD ELSWHR W/O BEHAVRL DISTURB (3) Anxiety about health Code(s): F41.8 - OTHER SPECIFIED ANXIETY DISORDERS Assessment/Plan no evidence of acute LOIN TRIMMER pathology. Alzheimer with aggressive behavior advance. 1. Continue the Seroquel the same dosage at night. 2. Trial of Depakote 250 twice daily as a mood stabilizer. 3. Stop the Remeron. 4. Fall precautions. 5. Continued one-to-one. Thank you very much for allowing me to be part this patient's neurological care Anastacio Eckert M.D.
[2019-11-30] MEDS ORDERED: INSULIN (NOVOLOG) ASPART 100 UNITS/ML 10ML VIAL ONE (11:50)
[2019-11-30] MEDS ORDERED: HALOPERIDOL LACTATE 5 MG/ML IM PRN (15:57)
[2019-11-30] MEDS: QUEtiapine FUMARATE 100 MG TABLET (FP) PO SCH (22:56)
[2019-11-30] MEDS: ATORVASTATIN CA 20 MG TABLET (FP) PO SCH (22:56)
[2019-11-30] MEDS: VALPROATE SODIUM 250 MG/5 ML UNIT DOSE CUP PO SCH (22:56)
[2019-12-01] MEDS: ACETAMINOPHEN 325 MG TABLET (FP) PO SCH ×3 (00:17→13:53)
[2019-12-01] MEDS: GABAPENTIN 100 MG CAPSULE PO SCH ×3 (05:47→22:13)
[2019-12-01] MEDS: INSULIN SLIDING SCALE (NOVOLOG) 1 VIAL SQ SCH ×4 (06:00→22:19)
[2019-12-01] MEDS: METOPROLOL TARTRATE 50 MG TABLET (FP) PO SCH ×2 (10:33→11:00)
[2019-12-01] MEDS: VALSARTAN 160 MG TABLET (UD) PO SCH (10:34)
[2019-12-01] MEDS: HEPARIN NA (PORCINE) 5,000 UNITS/ML 1ML VIAL SQ SCH ×3 (10:34→22:21)
[2019-12-01] MEDS: VALPROATE SODIUM 250 MG/5 ML UNIT DOSE CUP PO SCH ×2 (10:34→22:13)
[2019-12-01] MEDS: ASPIRIN COATED 81 MG TABLET.EC PO SCH (10:34)
--- NOTE | 2019-12-01 13:32 | PN ---
Progress Note, Physician - Current Medication List Current Medications: Active Medications Acetaminophen (Tylenol -) 650 mg PO Q6HPO [facility] Last Admin: 12/01/19 05:47 Dose: 650 mg Documented by: Aspirin (Ecotrin -) 81 mg PO DAILY [facility] Last Admin: 12/01/19 10:34 Dose: 81 mg Documented by: Atorvastatin Calcium (Lipitor -) 20 mg PO HS [facility] Last Admin: 11/30/19 22:56 Dose: Not Given Documented by: Gabapentin (Neurontin -) 100 mg PO TID [facility] Last Admin: 12/01/19 05:47 Dose: 100 mg Documented by: Haloperidol (Haldol Injection (Fast Acting) -) 1 mg IM BID PRN PRN Reason: AGITATION Heparin Sodium (Porcine) (Heparin -) 5,000 unit SQ BID [facility] Last Admin: 12/01/19 10:58 Dose: Not Given Documented by: Insulin Aspart (Novolog Vial Sliding Scale -) 1 vial SQ [facility]; Protocol Last Admin: 12/01/19 06:00 Dose: 2 units Documented by: Metoprolol Tartrate (Lopressor -) 50 mg PO DAILY [facility] Last Admin: 12/01/19 11:00 Dose: Not Given Documented by: Quetiapine Fumarate (Seroquel -) 100 mg PO [facility] Last Admin: 11/30/19 22:56 Dose: Not Given Documented by: Valproate Sodium (Depakene -) 250 mg PO BID [facility] Last Admin: 12/01/19 10:34 Dose: 250 mg Documented by: Valsartan (Diovan -) 320 mg PO DAILY [facility] Last Admin: 12/01/19 10:34 Dose: Not Given Documented by: - Objective Vital Signs: Vital Signs Temperature 97.8 F 11/30/19 15:24 Pulse Rate 95 H 11/30/19 15:24 Respiratory Rate 16 11/30/19 15:24 Blood Pressure 110/43 L 11/30/19 15:24 O2 Sat by Pulse Oximetry (%) 96 11/30/19 15:24 Cardiovascular: Yes: S1, S2 Respiratory: Yes: Regular, CTA Bilaterally Gastrointestinal: Yes: Normal Bowel Sounds, Soft. No: Tenderness Labs: CBC, BMP 11/29/19 06:52 11/29/19 06:52 Problem List - Problems (1) Acute metabolic encephalopathy Assessment/Plan: Likely secondary to advancing Dementia Neurology consult 1:1 Fall Precautions Code(s): G93.41 - METABOLIC ENCEPHALOPATHY (2) Elevated troponin Assessment/Plan: Appreciate Cardiology consult asa and lipitor on b- adrien Laboratory Tests 11/25/19 11/26/19 11/26/19 21:23 05:53 17:00 Troponin I 0.10 H 0.13 H 0.10 H Code(s): R79.89 - OTHER SPECIFIED ABNORMAL FINDINGS OF BLOOD CHEMISTRY (3) Dementia Assessment/Plan: with agitation on seroquel neuro and psych follow up Code(s): F03.90 - UNSPECIFIED DEMENTIA WITHOUT BEHAVIORAL DISTURBANCE (4) Diabetes Assessment/Plan: BGMs ISS HgbA1c Code(s): E11.9 - TYPE 2 DIABETES MELLITUS WITHOUT COMPLICATIONS (5) Hypertension Assessment/Plan: monitor on home meds Vital Signs Period Temp Pulse Resp BP Sys/Tiwari Pulse Ox Last 24 Hr 97.4 F-99.2 F 71-106 18-18 109-158/56-90 95-98 Code(s): I10 - ESSENTIAL (PRIMARY) HYPERTENSION (6) Lipidemia Assessment/Plan: lipitor Code(s): E78.5 - HYPERLIPIDEMIA, UNSPECIFIED
[2019-12-01] MEDS: QUEtiapine FUMARATE 100 MG TABLET (FP) PO SCH (22:13)
[2019-12-01] MEDS: ATORVASTATIN CA 20 MG TABLET (FP) PO SCH (22:13)
[2019-12-02] MEDS: ACETAMINOPHEN 325 MG TABLET (FP) PO SCH ×4 (05:38→17:26)
[2019-12-02] MEDS: GABAPENTIN 100 MG CAPSULE PO SCH ×3 (05:39→22:03)
[2019-12-02] MEDS: INSULIN SLIDING SCALE (NOVOLOG) 1 VIAL SQ SCH ×4 (06:35→22:02)
[2019-12-02] MEDS: METOPROLOL TARTRATE 50 MG TABLET (FP) PO SCH ×2 (10:47→10:55)
[2019-12-02] MEDS: HEPARIN NA (PORCINE) 5,000 UNITS/ML 1ML VIAL SQ SCH ×2 (10:47→22:03)
[2019-12-02] MEDS: ASPIRIN COATED 81 MG TABLET.EC PO SCH ×2 (10:47→10:55)
[2019-12-02] MEDS: VALSARTAN 160 MG TABLET (UD) PO SCH ×2 (10:47→10:55)
[2019-12-02] MEDS: VALPROATE SODIUM 250 MG/5 ML UNIT DOSE CUP PO SCH ×4 (10:47→22:04)
--- NOTE | 2019-12-02 13:12 | PN ---
Progress Note, Physician - Current Medication List Current Medications: Active Medications Acetaminophen (Tylenol -) 650 mg PO Q6HPO [facility] Last Admin: 12/02/19 12:26 Dose: Not Given Documented by: Aspirin (Ecotrin -) 81 mg PO DAILY [facility] Last Admin: 12/02/19 10:55 Dose: Not Given Documented by: Atorvastatin Calcium (Lipitor -) 20 mg PO HS [facility] Last Admin: 12/01/19 22:13 Dose: 20 mg Documented by: Gabapentin (Neurontin -) 100 mg PO TID [facility] Last Admin: 12/02/19 05:39 Dose: 100 mg Documented by: Haloperidol (Haldol Injection (Fast Acting) -) 1 mg IM BID PRN PRN Reason: AGITATION Last Admin: 12/02/19 12:16 Dose: 1 mg Documented by: Heparin Sodium (Porcine) (Heparin -) 5,000 unit SQ BID [facility] Last Admin: 12/02/19 10:47 Dose: Not Given Documented by: Insulin Aspart (Novolog Vial Sliding Scale -) 1 vial SQ [facility]; Protocol Last Admin: 12/02/19 12:26 Dose: Not Given Documented by: Metoprolol Tartrate (Lopressor -) 50 mg PO DAILY [facility] Last Admin: 12/02/19 10:55 Dose: Not Given Documented by: Quetiapine Fumarate (Seroquel -) [address] [facility] Last Admin: 12/01/19 22:13 Dose: 100 mg Documented by: Valproate Sodium (Depakene -) 250 mg PO BID [facility] Last Admin: 12/02/19 10:55 Dose: Not Given Documented by: Valsartan (Diovan -) 320 mg PO DAILY [facility] Last Admin: 12/02/19 10:55 Dose: Not Given Documented by: - Objective Vital Signs: Vital Signs Temperature 98.6 F 12/02/19 05:39 Pulse Rate 98 H 12/02/19 05:39 Respiratory Rate 18 12/02/19 05:39 Blood Pressure 147/70 12/02/19 05:39 O2 Sat by Pulse Oximetry (%) 96 12/02/19 05:39 Cardiovascular: Yes: S1, S2 Respiratory: Yes: Regular, CTA Bilaterally Gastrointestinal: Yes: Normal Bowel Sounds, Soft Labs: CBC, BMP 11/29/19 06:52 11/29/19 06:52 Problem List - Problems (1) Acute metabolic encephalopathy Assessment/Plan: Likely secondary to advancing Dementia Neurology consult 1:1 Fall Precautions Code(s): G93.41 - METABOLIC ENCEPHALOPATHY (2) Elevated troponin Assessment/Plan: Appreciate Cardiology consult asa and lipitor on b- adrien Laboratory Tests 11/25/19 11/26/19 11/26/19 21:23 05:53 17:00 Troponin I 0.10 H 0.13 H 0.10 H Code(s): R79.89 - OTHER SPECIFIED ABNORMAL FINDINGS OF BLOOD CHEMISTRY (3) Dementia Assessment/Plan: with agitation on seroquel neuro and psych follow up Code(s): F03.90 - UNSPECIFIED DEMENTIA WITHOUT BEHAVIORAL DISTURBANCE (4) Diabetes Assessment/Plan: BGMs ISS HgbA1c Code(s): E11.9 - TYPE 2 DIABETES MELLITUS WITHOUT COMPLICATIONS (5) Hypertension Assessment/Plan: monitor on home meds Vital Signs Period Temp Pulse Resp BP Sys/Tiwari Pulse Ox Last 24 Hr 97.4 F-99.2 F 71-106 18-18 109-158/56-90 95-98 Code(s): I10 - ESSENTIAL (PRIMARY) HYPERTENSION (6) Lipidemia Assessment/Plan: lipitor Code(s): E78.5 - HYPERLIPIDEMIA, UNSPECIFIED
[2019-12-02] MEDS: QUEtiapine FUMARATE 100 MG TABLET (FP) PO SCH (22:04)
[2019-12-02] MEDS: ATORVASTATIN CA 20 MG TABLET (FP) PO SCH (22:04)
[2019-12-03] MEDS: ACETAMINOPHEN 325 MG TABLET (FP) PO SCH ×3 (00:26→12:31)
[2019-12-03] MEDS: VALPROATE SODIUM 250 MG/5 ML UNIT DOSE CUP PO SCH ×2 (00:26→09:22)
[2019-12-03] MEDS: QUEtiapine FUMARATE 100 MG TABLET (FP) PO SCH (00:26)
[2019-12-03] MEDS: ATORVASTATIN CA 20 MG TABLET (FP) PO SCH (00:26)
[2019-12-03] MEDS: GABAPENTIN 100 MG CAPSULE PO SCH ×3 (00:26→14:06)
[2019-12-03] MEDS: INSULIN SLIDING SCALE (NOVOLOG) 1 VIAL SQ SCH ×2 (06:43→12:32)
--- NOTE | 2019-12-03 08:59 | PN ---
Progress Note, Physician - Current Medication List Current Medications: Active Medications Acetaminophen (Tylenol -) 650 mg PO Q6HPO [facility] Last Admin: 12/03/19 06:42 Dose: Not Given Documented by: Aspirin (Ecotrin -) 81 mg PO DAILY [facility] Last Admin: 12/02/19 10:55 Dose: Not Given Documented by: Atorvastatin Calcium (Lipitor -) 20 mg PO HS [facility] Last Admin: 12/03/19 00:26 Dose: 20 mg Documented by: Gabapentin (Neurontin -) 100 mg PO TID [facility] Last Admin: 12/03/19 06:42 Dose: Not Given Documented by: Haloperidol (Haldol Injection (Fast Acting) -) 1 mg IM BID PRN PRN Reason: AGITATION Last Admin: 12/02/19 12:16 Dose: 1 mg Documented by: Heparin Sodium (Porcine) (Heparin -) 5,000 unit SQ BID [facility] Last Admin: 12/02/19 22:03 Dose: Not Given Documented by: Insulin Aspart (Novolog Vial Sliding Scale -) 1 vial SQ [facility]; Protocol Last Admin: 12/03/19 06:43 Dose: Not Given Documented by: Metoprolol Tartrate (Lopressor -) 50 mg PO DAILY [facility] Last Admin: 12/02/19 10:55 Dose: Not Given Documented by: Quetiapine Fumarate (Seroquel -) 100 mg PO [facility] Last Admin: 12/03/19 00:26 Dose: 100 mg Documented by: Valproate Sodium (Depakene -) 250 mg PO BID [facility] Last Admin: 12/03/19 00:26 Dose: 250 mg Documented by: Valsartan (Diovan -) 320 mg PO DAILY [facility] Last Admin: 12/02/19 10:55 Dose: Not Given Documented by: - Objective Vital Signs: Vital Signs Temperature 98.6 F 12/03/19 06:42 Pulse Rate 99 H 12/03/19 06:42 Respiratory Rate 18 12/03/19 06:42 Blood Pressure 142/66 12/03/19 06:42 O2 Sat by Pulse Oximetry (%) 97 12/03/19 06:42 Labs: CBC, BMP 11/29/19 06:52 11/29/19 06:52 Problem List - Problems (1) Acute metabolic encephalopathy Assessment/Plan: Likely secondary to advancing Dementia Neurology consult Fall Precautions Code(s): G93.41 - METABOLIC ENCEPHALOPATHY (2) Elevated troponin Assessment/Plan: Appreciate Cardiology consult asa and lipitor on b- adrien Laboratory Tests 11/25/19 11/26/19 11/26/19 21:23 05:53 17:00 Troponin I 0.10 H 0.13 H 0.10 H Code(s): R79.89 - OTHER SPECIFIED ABNORMAL FINDINGS OF BLOOD CHEMISTRY (3) Dementia Assessment/Plan: with agitation on seroquel neuro and psych follow up nboted Code(s): F03.90 - UNSPECIFIED DEMENTIA WITHOUT BEHAVIORAL DISTURBANCE (4) Diabetes Assessment/Plan: BGMs ISS HgbA1c Code(s): E11.9 - TYPE 2 DIABETES MELLITUS WITHOUT COMPLICATIONS (5) Hypertension Assessment/Plan: monitor on home meds Vital Signs Period Temp Pulse Resp BP Sys/Tiwari Pulse Ox Last 24 Hr 97.4 F-99.2 F 71-106 18-18 109-158/56-90 95-98 Code(s): I10 - ESSENTIAL (PRIMARY) HYPERTENSION (6) Lipidemia Assessment/Plan: lipitor Code(s): E78.5 - HYPERLIPIDEMIA, UNSPECIFIED
[2019-12-03] MEDS: HEPARIN NA (PORCINE) 5,000 UNITS/ML 1ML VIAL SQ SCH (09:22)
[2019-12-03] MEDS: VALSARTAN 160 MG TABLET (UD) PO SCH (09:22)
[2019-12-03] MEDS: ASPIRIN COATED 81 MG TABLET.EC PO SCH (09:22)
[2019-12-03] MEDS: METOPROLOL TARTRATE 50 MG TABLET (FP) PO SCH (09:23)
[2019-12-03 12:48] VITALS: BP 151/67; PULSE 86; TEMP 97.6
--- NOTE | 2019-12-03 13:42 | DS ---
Physical Examination Vital Signs: Vital Signs Temperature 97.6 F 12/03/19 10:00 Pulse Rate 86 12/03/19 10:00 Respiratory Rate 18 12/03/19 10:00 Blood Pressure 151/67 12/03/19 10:00 O2 Sat by Pulse Oximetry (%) 97 12/03/19 10:00 Labs: CBC, BMP 11/29/19 06:52 11/29/19 06:52 Discharge Summary Problems reviewed: Yes Reason For Visit: HYPERGLYCEMIA DUE TO DIABETES MELLITUS Current Active Problems Acute metabolic encephalopathy (Acute) Altered mental status (Acute) Elevated troponin (Acute) Encounter for screening laboratory testing for COVID-19 virus (Acute) Hyperglycemia due to diabetes mellitus (Acute) Condition: Good - Instructions Referrals: Claudio Pat MD [Primary Care Provider] - - Home Medications Comprehensive Discharge Medication List: Ambulatory Orders Aspirin [Aspirin EC] 81 mg PO DAILY 12/28/18 Metoprolol Tartrate [Lopressor -] 50 mg PO DAILY 12/28/18 Acetaminophen [Tylenol] 650 mg PO Q6H 01/31/19 Atorvastatin Ca [Lipitor] 20 mg PO HS tablet 02/28/19 Gabapentin [Neurontin -] 100 mg PO TID capsule 02/28/19 Valsartan [Diovan] 320 mg PO DAILY #30 tablet 03/05/19 Heparin - 5,000 unit SQ BID vial 12/03/19 Insulin Sliding Scale [Novolog Vial Sliding Scale -] 1 vial SQ [facility] units 12/03/19 Valproate Sodium [Depakene -] 250 mg PO BID cup 12/03/19
== END 2019-12-03 14:24 | DRG 56 ==
LOC: JER 20:05 → JERBED 11-26 00:02 → J4S 11-26 20:43 → J6S 11-29 19:12
PROVIDERS: ADMIT Internal Medicine; ATTEND Family Medicine
DX: G30.9 Alzheimer's disease, unspecified (principal); I21.4 Non-ST elevation (NSTEMI) myocardial infarction; G93.41 Metabolic encephalopathy; F02.81 Dementia in other diseases classified elsewhere, unspecified severity, with behavioral disturbance; E11.65 Type 2 diabetes mellitus with hyperglycemia; E66.9 Obesity, unspecified; Z68.35 Body mass index [BMI] 35.0-35.9, adult; M54.16 Radiculopathy, lumbar region; I10 Essential (primary) hypertension; E78.5 Hyperlipidemia, unspecified; R79.89 Other specified abnormal findings of blood chemistry; M54.5 Low back pain; F41.8 Other specified anxiety disorders; R41.82 Altered mental status, unspecified
CPT/HCPCS: 36415; 70450-TC; 71045-TC-FY; 80053; 81003; 82962; 83735; 84484; 85025; 85027; 87086; 87186; 93005; 93010; 97116-GP; 97161-GP; 99285-25; J1644; U0003

== ENCOUNTER 2020-03-14 16:20 | Inpatient (IN) | payer OTHER ==
[2020-03-14] MEDS ORDERED: HALOPERIDOL LACTATE 5 MG/ML IM ONE (18:49)
[2020-03-14] MEDS ORDERED: LORazepam 2 MG/ML SDV VIAL IVPUSH ONE (19:05)
[2020-03-14 19:41] LABS: VENOUS BASE EXCESS 1.8 mmol/L (-2-2); VENOUS PCO2 49.9 mmHg (38-52); VENOUS PH 7.366 (7.310-7.410)
[2020-03-14 19:45] LABS: BASO % 0.3 % (0-2.0); EOS % 1.1 % (0-4.5); HEMATOCRIT 39.2 % (32.4-45.2); HEMOGLOBIN 13.1 GM/dL (10.7-15.3); LYMPH % 43.4 % (8-40); MCH 31.3 pg (25.7-33.7); MCHC 33.5 g/dl (32.0-36.0); MEAN CELL VOLUME 93.6 fl (80-96); MEAN PLT VOLUME 7.3 fl (7.5-11.1); MONO % 11.4 % (3.8-10.2); NEUT % 43.8 % (42.8-82.8); PLATELET COUNT 182 K/MM3 (134-434); RBC 4.19 M/mm3 (3.60-5.2); WHITE BLOOD COUNT 4.7 K/mm3 (4.0-10.0)
[2020-03-14] MEDS ORDERED: BAMLANIVIMAB 700 MG in SODIUM CHLORIDE 180 ML IVPB ONE (19:57)
[2020-03-14 19:58] LABS: PROTHROMBIN TIME (PATIENT) 12.1 SEC (9.7-13.0)
[2020-03-14 20:01] LABS: ACTIVATED PTT 29.2 SECONDS (25.2-36.5)
[2020-03-14 20:10] LABS: POTASSIUM 4.7 mmol/L (3.5-5.1)
[2020-03-14 20:13] LABS: CALCIUM 8.1 mg/dL (8.5-10.1)
[2020-03-14] MEDS ORDERED: LORazepam 2 MG/ML SDV VIAL ONE (20:13)
[2020-03-14] MEDS ORDERED: HALOPERIDOL LACTATE 5 MG/ML ONE (20:13)
[2020-03-14 20:14] LABS: ALBUMIN 3.2 g/dl (3.4-5.0); BLOOD UREA NITROGEN 27.2 mg/dL (7-18)
[2020-03-14 20:17] LABS: CREATININE 0.8 mg/dL (0.55-1.3)
[2020-03-14 20:19] LABS: BILIRUBIN,TOTAL 0.7 mg/dL (0.2-1); PHOSPHOROUS 4.2 mg/dL (2.5-4.9); TOT PROT 6.7 g/dl (6.4-8.2)
[2020-03-14 20:23] LABS: N-TERMINAL BNP 1128.7 pg/ml (5-450)
[2020-03-14 20:29] LABS: LDH 291 U/L (84-246)
[2020-03-14] MEDS ORDERED: DEXAMETHASONE SOD PHOSPHATE 10 MG/1 ML VIAL IVPUSH ONE (22:13)
[2020-03-15 08:35] LABS: BASO % 0.8 % (0-2.0); EOS % 2.1 % (0-4.5); HEMATOCRIT 34.5 % (32.4-45.2); HEMOGLOBIN 11.6 GM/dL (10.7-15.3); LYMPH % 42.9 % (8-40); MCH 31.4 pg (25.7-33.7); MCHC 33.7 g/dl (32.0-36.0); MEAN CELL VOLUME 93.3 fl (80-96); MEAN PLT VOLUME 6.9 fl (7.5-11.1); MONO % 13.2 % (3.8-10.2); PLATELET COUNT 141 K/MM3 (134-434); RDW 13.7 % (11.6-15.6); WHITE BLOOD COUNT 3.3 K/mm3 (4.0-10.0)
[2020-03-15 08:54] LABS: POTASSIUM 3.8 mmol/L (3.5-5.1)
[2020-03-15 09:00] LABS: ALBUMIN 2.8 g/dl (3.4-5.0); BLOOD UREA NITROGEN 23.7 mg/dL (7-18); MAGNESIUM 1.9 mg/dL (1.8-2.4)
[2020-03-15 09:05] LABS: CREATININE 0.6 mg/dL (0.55-1.3)
[2020-03-15 09:09] LABS: BILIRUBIN,TOTAL 0.6 mg/dL (0.2-1); TOT PROT 5.6 g/dl (6.4-8.2)
[2020-03-15] MEDS: VALSARTAN 160 MG TABLET PO SCH (09:48)
[2020-03-15] MEDS: ZINC SULFATE 220 MG CAPSULE (FP) PO SCH (09:49)
[2020-03-15] MEDS: ASCORBIC ACID 500 MG TABLET (FP) PO SCH (09:49)
[2020-03-15] MEDS: ASPIRIN COATED 81 MG TABLET.EC PO SCH (09:49)
[2020-03-15] MEDS: CHOLECALCIFEROL (VIT D3) 1,000 UNIT (25 MCG) TABLET PO SCH (09:49)
[2020-03-15] MEDS ORDERED: CITALOPRAM HYDROBROMIDE 20 MG TABLET PO SCH (10:00)
[2020-03-15] MEDS ORDERED: METOPROLOL TARTRATE 50 MG TABLET (FP) PO SCH (10:00)
[2020-03-15] MEDS: clonazePAM 0.5 MG TABLET PO SCH (10:02)
[2020-03-15] MEDS: GABAPENTIN 100 MG CAPSULE PO SCH ×2 (14:09→23:00)
[2020-03-15] MEDS ORDERED: amLODIPine BESYLATE 10 MG TABLET (FP) PO ONE (15:03)
[2020-03-15] MEDS: VALPROATE SODIUM 250 MG/5 ML UNIT DOSE CUP PO SCH (17:54)
[2020-03-15] MEDS ORDERED: QUEtiapine FUMARATE 25 MG TABLET PO SCH (22:00)
[2020-03-15] MEDS: ATORVASTATIN CA 20 MG TABLET (FP) PO SCH (23:00)
[2020-03-15] MEDS: METOPROLOL TARTRATE 50 MG TABLET (FP) PO SCH (23:00)
[2020-03-16] MEDS: GABAPENTIN 100 MG CAPSULE PO SCH ×3 (06:24→21:10)
[2020-03-16] MEDS: ZINC SULFATE 220 MG CAPSULE (FP) PO SCH (10:06)
[2020-03-16] MEDS: ASCORBIC ACID 500 MG TABLET (FP) PO SCH (10:06)
[2020-03-16] MEDS: VALSARTAN 160 MG TABLET PO SCH (10:06)
[2020-03-16] MEDS: CHOLECALCIFEROL (VIT D3) 1,000 UNIT (25 MCG) TABLET PO SCH (10:06)
[2020-03-16] MEDS: clonazePAM 0.5 MG TABLET PO SCH (10:06)
[2020-03-16] MEDS: METOPROLOL TARTRATE 50 MG TABLET (FP) PO SCH ×2 (10:07→21:10)
[2020-03-16] MEDS: ASPIRIN COATED 81 MG TABLET.EC PO SCH (10:07)
[2020-03-16] MEDS: CITALOPRAM HYDROBROMIDE 10 MG TABLET PO SCH (10:07)
[2020-03-16] MEDS: amLODIPine BESYLATE 10 MG TABLET (FP) PO SCH (10:07)
[2020-03-16] MEDS: INSULIN SLIDING SCALE (NOVOLOG) 1 VIAL SQ SCH ×3 (12:15→21:27)
[2020-03-16] MEDS: VALPROATE SODIUM 250 MG/5 ML UNIT DOSE CUP PO SCH (17:46)
[2020-03-16] MEDS: ATORVASTATIN CA 20 MG TABLET (FP) PO SCH (21:10)
[2020-03-16] MEDS: MELATONIN 5 MG TABLETS PO PRN (21:11)
[2020-03-17] MEDS: ACETAMINOPHEN 325 MG TABLET (FP) PO PRN (04:00)
[2020-03-17] MEDS: GABAPENTIN 100 MG CAPSULE PO SCH ×3 (05:50→22:06)
[2020-03-17] MEDS: INSULIN SLIDING SCALE (NOVOLOG) 1 VIAL SQ SCH ×4 (06:08→22:16)
[2020-03-17] MEDS: METOPROLOL TARTRATE 50 MG TABLET (FP) PO SCH ×2 (09:52→22:06)
[2020-03-17] MEDS: ENOXAPARIN NA (PORCINE) 40 MG/0.4 ML DISP.SYRIN SQ SCH (09:52)
[2020-03-17] MEDS: ZINC SULFATE 220 MG CAPSULE (FP) PO SCH (09:53)
[2020-03-17] MEDS: CHOLECALCIFEROL (VIT D3) 1,000 UNIT (25 MCG) TABLET PO SCH (09:53)
[2020-03-17] MEDS: ASPIRIN COATED 81 MG TABLET.EC PO SCH (09:53)
[2020-03-17] MEDS: amLODIPine BESYLATE 10 MG TABLET (FP) PO SCH (09:53)
[2020-03-17] MEDS: VALSARTAN 160 MG TABLET PO SCH (10:03)
[2020-03-17] MEDS: clonazePAM 0.5 MG TABLET PO SCH (10:03)
[2020-03-17] MEDS: CITALOPRAM HYDROBROMIDE 10 MG TABLET PO SCH (10:04)
[2020-03-17 10:47] LABS: HEMATOCRIT 38.4 % (32.4-45.2); HEMOGLOBIN 13.1 GM/dL (10.7-15.3); MCH 31.2 pg (25.7-33.7); MCHC 34.1 g/dl (32.0-36.0); MEAN CELL VOLUME 91.5 fl (80-96); MEAN PLT VOLUME 7.2 fl (7.5-11.1); PLATELET COUNT 177 K/MM3 (134-434); RDW 13.3 % (11.6-15.6); WHITE BLOOD COUNT 3.7 K/mm3 (4.0-10.0)
[2020-03-17 11:10] LABS: POTASSIUM 3.5 mmol/L (3.5-5.1)
[2020-03-17 11:12] LABS: CALCIUM 8.5 mg/dL (8.5-10.1)
[2020-03-17 11:13] LABS: ALBUMIN 3.1 g/dl (3.4-5.0); BLOOD UREA NITROGEN 20.8 mg/dL (7-18)
[2020-03-17 11:16] LABS: CREATININE 0.9 mg/dL (0.55-1.3)
[2020-03-17 11:18] LABS: BILIRUBIN,TOTAL 1.4 mg/dL (0.2-1); TOT PROT 6.5 g/dl (6.4-8.2)
[2020-03-17] MEDS: ASCORBIC ACID 500 MG TABLET (FP) PO SCH (13:43)
[2020-03-17] MEDS: VALPROATE SODIUM 250 MG/5 ML UNIT DOSE CUP PO SCH (18:38)
[2020-03-17] MEDS: ATORVASTATIN CA 20 MG TABLET (FP) PO SCH (22:06)
[2020-03-18] MEDS: GABAPENTIN 100 MG CAPSULE PO SCH ×3 (06:41→21:10)
[2020-03-18] MEDS: INSULIN SLIDING SCALE (NOVOLOG) 1 VIAL SQ SCH ×4 (06:44→21:16)
[2020-03-18 08:28] LABS: HEMOGLOBIN 12.5 GM/dL (10.7-15.3); MCH 31.5 pg (25.7-33.7); MCHC 34.8 g/dl (32.0-36.0); MEAN CELL VOLUME 90.5 fl (80-96); MEAN PLT VOLUME 7.3 fl (7.5-11.1); PLATELET COUNT 176 K/MM3 (134-434); RBC 3.98 M/mm3 (3.60-5.2); RDW 13.5 % (11.6-15.6); WHITE BLOOD COUNT 3.6 K/mm3 (4.0-10.0)
[2020-03-18 08:31] LABS: POTASSIUM 3.6 mmol/L (3.5-5.1)
[2020-03-18 08:45] LABS: BLOOD UREA NITROGEN 19.1 mg/dL (7-18); CALCIUM 8.6 mg/dL (8.5-10.1)
[2020-03-18 08:48] LABS: CREATININE 0.8 mg/dL (0.55-1.3)
[2020-03-18] MEDS: VALSARTAN 160 MG TABLET PO SCH (09:50)
[2020-03-18] MEDS: ENOXAPARIN NA (PORCINE) 40 MG/0.4 ML DISP.SYRIN SQ SCH (09:50)
[2020-03-18] MEDS: CITALOPRAM HYDROBROMIDE 10 MG TABLET PO SCH (09:51)
[2020-03-18] MEDS: amLODIPine BESYLATE 10 MG TABLET (FP) PO SCH (09:51)
[2020-03-18] MEDS: ASPIRIN COATED 81 MG TABLET.EC PO SCH (09:51)
[2020-03-18] MEDS: ASCORBIC ACID 500 MG TABLET (FP) PO SCH (09:51)
[2020-03-18] MEDS: METOPROLOL TARTRATE 50 MG TABLET (FP) PO SCH ×2 (09:51→21:10)
[2020-03-18] MEDS: ZINC SULFATE 220 MG CAPSULE (FP) PO SCH (09:51)
[2020-03-18] MEDS: clonazePAM 0.5 MG TABLET PO SCH (09:53)
[2020-03-18] MEDS: CHOLECALCIFEROL (VIT D3) 1,000 UNIT (25 MCG) TABLET PO SCH (10:06)
[2020-03-18] MEDS: ATORVASTATIN CA 20 MG TABLET (FP) PO SCH (21:10)
[2020-03-18] MEDS: VALPROATE SODIUM 250 MG/5 ML UNIT DOSE CUP PO SCH (21:10)
[2020-03-18] MEDS: QUEtiapine FUMARATE 25 MG TABLET PO SCH (21:10)
[2020-03-18] MEDS: MELATONIN 5 MG TABLETS PO PRN (21:41)
[2020-03-19] MEDS: INSULIN SLIDING SCALE (NOVOLOG) 1 VIAL SQ SCH ×3 (06:36→17:07)
[2020-03-19] MEDS: GABAPENTIN 100 MG CAPSULE PO SCH ×3 (06:37→21:46)
[2020-03-19 08:43] LABS: HEMATOCRIT 35.6 % (32.4-45.2); HEMOGLOBIN 12.2 GM/dL (10.7-15.3); MCH 31.2 pg (25.7-33.7); MCHC 34.3 g/dl (32.0-36.0); MEAN PLT VOLUME 7.1 fl (7.5-11.1); PLATELET COUNT 212 K/MM3 (134-434); RBC 3.91 M/mm3 (3.60-5.2); RDW 13.4 % (11.6-15.6); WHITE BLOOD COUNT 4.2 K/mm3 (4.0-10.0)
[2020-03-19 08:55] LABS: POTASSIUM 3.6 mmol/L (3.5-5.1)
[2020-03-19 08:58] LABS: ALBUMIN 2.8 g/dl (3.4-5.0); BLOOD UREA NITROGEN 20.3 mg/dL (7-18); CALCIUM 8.2 mg/dL (8.5-10.1)
[2020-03-19 09:02] LABS: CREATININE 0.8 mg/dL (0.55-1.3)
[2020-03-19 09:03] LABS: BILIRUBIN,TOTAL 0.9 mg/dL (0.2-1); TOT PROT 6.2 g/dl (6.4-8.2)
[2020-03-19] MEDS: CITALOPRAM HYDROBROMIDE 10 MG TABLET PO SCH (10:06)
[2020-03-19] MEDS: METOPROLOL TARTRATE 50 MG TABLET (FP) PO SCH ×2 (10:07→21:46)
[2020-03-19] MEDS: clonazePAM 0.5 MG TABLET PO SCH (10:07)
[2020-03-19] MEDS: ZINC SULFATE 220 MG CAPSULE (FP) PO SCH (10:07)
[2020-03-19] MEDS: ASPIRIN COATED 81 MG TABLET.EC PO SCH (10:08)
[2020-03-19] MEDS: ASCORBIC ACID 500 MG TABLET (FP) PO SCH (10:08)
[2020-03-19] MEDS: ENOXAPARIN NA (PORCINE) 40 MG/0.4 ML DISP.SYRIN SQ SCH (10:08)
[2020-03-19] MEDS: CHOLECALCIFEROL (VIT D3) 1,000 UNIT (25 MCG) TABLET PO SCH (10:08)
[2020-03-19] MEDS: amLODIPine BESYLATE 10 MG TABLET (FP) PO SCH (10:08)
[2020-03-19] MEDS: VALSARTAN 160 MG TABLET PO SCH (10:23)
[2020-03-19] MEDS ORDERED: BAMLANIVIMAB 700 MG in SODIUM CHLORIDE 180 ML IVPB ONE (12:17)
[2020-03-19] MEDS: VALPROATE SODIUM 250 MG/5 ML UNIT DOSE CUP PO SCH (18:16)
[2020-03-19] MEDS: APIXABAN 5 MG TABLET PO SCH (21:45)
[2020-03-19] MEDS: ATORVASTATIN CA 20 MG TABLET (FP) PO SCH (21:46)
[2020-03-19] MEDS: QUEtiapine FUMARATE 25 MG TABLET PO SCH (21:46)
[2020-03-20] MEDS: GABAPENTIN 100 MG CAPSULE PO SCH ×3 (06:45→22:01)
[2020-03-20] MEDS: INSULIN SLIDING SCALE (NOVOLOG) 1 VIAL SQ SCH ×5 (07:41→22:01)
[2020-03-20 08:38] LABS: HEMATOCRIT 38.3 % (32.4-45.2); HEMOGLOBIN 13.1 GM/dL (10.7-15.3); MCH 30.9 pg (25.7-33.7); MCHC 34.1 g/dl (32.0-36.0); MEAN CELL VOLUME 90.7 fl (80-96); MEAN PLT VOLUME 7.3 fl (7.5-11.1); PLATELET COUNT 250 K/MM3 (134-434); RBC 4.23 M/mm3 (3.60-5.2); RDW 13.6 % (11.6-15.6); WHITE BLOOD COUNT 4.9 K/mm3 (4.0-10.0)
[2020-03-20 08:46] LABS: POTASSIUM 4.1 mmol/L (3.5-5.1)
[2020-03-20 08:50] LABS: CALCIUM 8.5 mg/dL (8.5-10.1)
[2020-03-20 08:54] LABS: CREATININE 0.9 mg/dL (0.55-1.3)
[2020-03-20] MEDS: ZINC SULFATE 220 MG CAPSULE (FP) PO SCH (10:19)
[2020-03-20] MEDS: ASCORBIC ACID 500 MG TABLET (FP) PO SCH (10:19)
[2020-03-20] MEDS: CHOLECALCIFEROL (VIT D3) 1,000 UNIT (25 MCG) TABLET PO SCH (10:19)
[2020-03-20] MEDS: clonazePAM 0.5 MG TABLET PO SCH (10:19)
[2020-03-20] MEDS: ASPIRIN COATED 81 MG TABLET.EC PO SCH (10:19)
[2020-03-20] MEDS: APIXABAN 5 MG TABLET PO SCH (10:19)
[2020-03-20] MEDS: CITALOPRAM HYDROBROMIDE 10 MG TABLET PO SCH (10:21)
[2020-03-20] MEDS: VALSARTAN 160 MG TABLET PO SCH (10:21)
[2020-03-20] MEDS: METOPROLOL TARTRATE 50 MG TABLET (FP) PO SCH (10:21)
[2020-03-20 15:46] VITALS: BMI 27.3
[2020-03-20] MEDS: VALPROATE SODIUM 250 MG/5 ML UNIT DOSE CUP PO SCH (17:53)
[2020-03-20] MEDS: QUEtiapine FUMARATE 25 MG TABLET PO SCH (22:01)
[2020-03-20] MEDS: ATORVASTATIN CA 20 MG TABLET (FP) PO SCH (22:01)
[2020-03-21] MEDS: INSULIN SLIDING SCALE (NOVOLOG) 1 VIAL SQ SCH ×3 (06:49→16:50)
[2020-03-21] MEDS: GABAPENTIN 100 MG CAPSULE PO SCH ×3 (06:49→21:04)
[2020-03-21] MEDS: clonazePAM 0.5 MG TABLET PO SCH (09:02)
[2020-03-21] MEDS: ASCORBIC ACID 500 MG TABLET (FP) PO SCH (09:02)
[2020-03-21] MEDS: ZINC SULFATE 220 MG CAPSULE (FP) PO SCH (09:02)
[2020-03-21] MEDS: ASPIRIN COATED 81 MG TABLET.EC PO SCH (09:02)
[2020-03-21] MEDS: CHOLECALCIFEROL (VIT D3) 1,000 UNIT (25 MCG) TABLET PO SCH (09:02)
[2020-03-21 09:11] LABS: HEMOGLOBIN 13.3 GM/dL (10.7-15.3); MCH 31.1 pg (25.7-33.7); MCHC 34.1 g/dl (32.0-36.0); MEAN CELL VOLUME 91.2 fl (80-96); MEAN PLT VOLUME 7.1 fl (7.5-11.1); PLATELET COUNT 278 K/MM3 (134-434); RBC 4.28 M/mm3 (3.60-5.2); RDW 13.4 % (11.6-15.6); WHITE BLOOD COUNT 4.1 K/mm3 (4.0-10.0)
[2020-03-21 09:25] LABS: POTASSIUM 3.9 mmol/L (3.5-5.1)
[2020-03-21 09:31] LABS: CALCIUM 8.8 mg/dL (8.5-10.1)
[2020-03-21 09:32] LABS: BLOOD UREA NITROGEN 27.3 mg/dL (7-18)
[2020-03-21 09:35] LABS: CREATININE 0.7 mg/dL (0.55-1.3)
[2020-03-21 09:36] LABS: BILIRUBIN,TOTAL 1.1 mg/dL (0.2-1); TOT PROT 6.8 g/dl (6.4-8.2)
[2020-03-21] MEDS: VALSARTAN 160 MG TABLET PO SCH (10:47)
[2020-03-21] MEDS: CITALOPRAM HYDROBROMIDE 10 MG TABLET PO SCH (10:48)
[2020-03-21] MEDS: ENOXAPARIN NA (PORCINE) 40 MG/0.4 ML DISP.SYRIN SQ SCH (10:48)
[2020-03-21] MEDS: VALPROATE SODIUM 250 MG/5 ML UNIT DOSE CUP PO SCH (17:29)
[2020-03-21] MEDS: QUEtiapine FUMARATE 25 MG TABLET PO SCH (21:01)
[2020-03-21] MEDS: MELATONIN 5 MG TABLETS PO PRN (21:01)
[2020-03-21] MEDS: ATORVASTATIN CA 20 MG TABLET (FP) PO SCH (21:02)
[2020-03-21] MEDS: ACETAMINOPHEN 325 MG TABLET (FP) PO PRN (21:02)
[2020-03-22] MEDS: GABAPENTIN 100 MG CAPSULE PO SCH ×4 (05:39→21:52)
[2020-03-22] MEDS: INSULIN SLIDING SCALE (NOVOLOG) 1 VIAL SQ SCH ×3 (06:44→17:37)
[2020-03-22 08:39] LABS: HEMATOCRIT 38.3 % (32.4-45.2); HEMOGLOBIN 12.9 GM/dL (10.7-15.3); MCH 30.8 pg (25.7-33.7); MCHC 33.6 g/dl (32.0-36.0); MEAN CELL VOLUME 91.7 fl (80-96); PLATELET COUNT 283 K/MM3 (134-434); RBC 4.18 M/mm3 (3.60-5.2); RDW 13.4 % (11.6-15.6); WHITE BLOOD COUNT 4.3 K/mm3 (4.0-10.0)
[2020-03-22 08:42] LABS: POTASSIUM 3.9 mmol/L (3.5-5.1)
[2020-03-22 08:48] LABS: CREATININE 0.9 mg/dL (0.55-1.3)
[2020-03-22] MEDS: VALSARTAN 160 MG TABLET PO SCH (10:40)
[2020-03-22] MEDS: clonazePAM 0.5 MG TABLET PO SCH (10:40)
[2020-03-22] MEDS: ASPIRIN COATED 81 MG TABLET.EC PO SCH (10:40)
[2020-03-22] MEDS: CITALOPRAM HYDROBROMIDE 10 MG TABLET PO SCH (10:40)
[2020-03-22] MEDS: ENOXAPARIN NA (PORCINE) 40 MG/0.4 ML DISP.SYRIN SQ SCH (10:41)
[2020-03-22] MEDS: CHOLECALCIFEROL (VIT D3) 1,000 UNIT (25 MCG) TABLET PO SCH (10:41)
[2020-03-22] MEDS: ASCORBIC ACID 500 MG TABLET (FP) PO SCH (10:41)
[2020-03-22] MEDS: ZINC SULFATE 220 MG CAPSULE (FP) PO SCH (10:41)
[2020-03-22] MEDS: VALPROATE SODIUM 250 MG/5 ML UNIT DOSE CUP PO SCH (18:25)
[2020-03-22] MEDS: QUEtiapine FUMARATE 25 MG TABLET PO SCH (21:49)
[2020-03-22] MEDS: ATORVASTATIN CA 20 MG TABLET (FP) PO SCH (21:49)
[2020-03-22] MEDS: MELATONIN 5 MG TABLETS PO PRN (21:50)
[2020-03-23] MEDS: GABAPENTIN 100 MG CAPSULE PO SCH ×3 (05:36→21:46)
[2020-03-23] MEDS: INSULIN SLIDING SCALE (NOVOLOG) 1 VIAL SQ SCH ×3 (06:34→17:53)
[2020-03-23 08:25] LABS: POTASSIUM 4.3 mmol/L (3.5-5.1)
[2020-03-23 08:27] LABS: BLOOD UREA NITROGEN 29.2 mg/dL (7-18)
[2020-03-23 08:30] LABS: CREATININE 0.7 mg/dL (0.55-1.3)
[2020-03-23] MEDS: VALSARTAN 160 MG TABLET PO SCH (09:51)
[2020-03-23] MEDS: ENOXAPARIN NA (PORCINE) 40 MG/0.4 ML DISP.SYRIN SQ SCH (09:51)
[2020-03-23] MEDS: CITALOPRAM HYDROBROMIDE 10 MG TABLET PO SCH (09:52)
[2020-03-23] MEDS: ZINC SULFATE 220 MG CAPSULE (FP) PO SCH (09:52)
[2020-03-23] MEDS: clonazePAM 0.5 MG TABLET PO SCH (09:52)
[2020-03-23] MEDS: CHOLECALCIFEROL (VIT D3) 1,000 UNIT (25 MCG) TABLET PO SCH (09:52)
[2020-03-23] MEDS: ASPIRIN COATED 81 MG TABLET.EC PO SCH (09:52)
[2020-03-23] MEDS: ASCORBIC ACID 500 MG TABLET (FP) PO SCH (09:52)
[2020-03-23] MEDS ORDERED: SODIUM CHLORIDE 0.45% 1,000 ML IV SCH (16:15)
[2020-03-23] MEDS: AMOX TR/POT CLAV 875MG/125MG TABLETS (FP) PO SCH (17:30)
[2020-03-23] MEDS: VALPROATE SODIUM 250 MG/5 ML UNIT DOSE CUP PO SCH (18:13)
[2020-03-23] MEDS: MELATONIN 5 MG TABLETS PO PRN (21:46)
[2020-03-23] MEDS: QUEtiapine FUMARATE 25 MG TABLET PO SCH (21:46)
[2020-03-23] MEDS: ATORVASTATIN CA 20 MG TABLET (FP) PO SCH (21:46)
[2020-03-24] MEDS: INSULIN SLIDING SCALE (NOVOLOG) 1 VIAL SQ SCH ×3 (06:48→17:25)
[2020-03-24] MEDS: GABAPENTIN 100 MG CAPSULE PO SCH ×3 (06:48→21:38)
[2020-03-24 09:52] LABS: BASO % 0.8 % (0-2.0); EOS % 2.5 % (0-4.5); HEMATOCRIT 36.9 % (32.4-45.2); HEMOGLOBIN 12.5 GM/dL (10.7-15.3); LYMPH % 30.9 % (8-40); MCHC 33.7 g/dl (32.0-36.0); MEAN CELL VOLUME 91.8 fl (80-96); MEAN PLT VOLUME 7.1 fl (7.5-11.1); MONO % 12.5 % (3.8-10.2); NEUT % 53.3 % (42.8-82.8); PLATELET COUNT 321 K/MM3 (134-434); RBC 4.02 M/mm3 (3.60-5.2); RDW 13.3 % (11.6-15.6); WHITE BLOOD COUNT 4.6 K/mm3 (4.0-10.0)
[2020-03-24 10:17] LABS: POTASSIUM 4.3 mmol/L (3.5-5.1)
[2020-03-24] MEDS: clonazePAM 0.5 MG TABLET PO SCH (10:19)
[2020-03-24] MEDS: ENOXAPARIN NA (PORCINE) 40 MG/0.4 ML DISP.SYRIN SQ SCH (10:20)
[2020-03-24] MEDS: CHOLECALCIFEROL (VIT D3) 1,000 UNIT (25 MCG) TABLET PO SCH (10:20)
[2020-03-24] MEDS: ZINC SULFATE 220 MG CAPSULE (FP) PO SCH (10:20)
[2020-03-24] MEDS: ASPIRIN COATED 81 MG TABLET.EC PO SCH (10:20)
[2020-03-24] MEDS: ASCORBIC ACID 500 MG TABLET (FP) PO SCH (10:20)
[2020-03-24] MEDS: CITALOPRAM HYDROBROMIDE 10 MG TABLET PO SCH (10:21)
[2020-03-24] MEDS: VALSARTAN 160 MG TABLET PO SCH (10:21)
[2020-03-24] MEDS: AMOX TR/POT CLAV 875MG/125MG TABLETS (FP) PO SCH ×2 (10:21→17:52)
[2020-03-24 10:28] LABS: BLOOD UREA NITROGEN 30.3 mg/dL (7-18)
[2020-03-24 10:32] LABS: CALCIUM 8.7 mg/dL (8.5-10.1)
[2020-03-24] MEDS: VALPROATE SODIUM 250 MG/5 ML UNIT DOSE CUP PO SCH (18:01)
[2020-03-24] MEDS: AMINO ACIDS/PROTEIN HYDROLYS 30 ML LIQUID.PKT PO SCH (18:01)
[2020-03-24] MEDS: MELATONIN 5 MG TABLETS PO PRN (21:38)
[2020-03-24] MEDS: ATORVASTATIN CA 20 MG TABLET (FP) PO SCH (21:38)
[2020-03-24] MEDS: ACETAMINOPHEN 325 MG TABLET (FP) PO PRN (21:38)
[2020-03-24] MEDS: QUEtiapine FUMARATE 25 MG TABLET PO SCH (21:38)
[2020-03-25] MEDS: INSULIN SLIDING SCALE (NOVOLOG) 1 VIAL SQ SCH ×3 (06:50→16:54)
[2020-03-25] MEDS: GABAPENTIN 100 MG CAPSULE PO SCH ×3 (06:51→21:19)
[2020-03-25] MEDS: clonazePAM 0.5 MG TABLET PO SCH (09:01)
[2020-03-25] MEDS: ASPIRIN COATED 81 MG TABLET.EC PO SCH (09:01)
[2020-03-25] MEDS: ENOXAPARIN NA (PORCINE) 40 MG/0.4 ML DISP.SYRIN SQ SCH (09:01)
[2020-03-25] MEDS: ZINC SULFATE 220 MG CAPSULE (FP) PO SCH (09:01)
[2020-03-25] MEDS: CHOLECALCIFEROL (VIT D3) 1,000 UNIT (25 MCG) TABLET PO SCH (09:01)
[2020-03-25] MEDS: ASCORBIC ACID 500 MG TABLET (FP) PO SCH (09:01)
[2020-03-25] MEDS: VALSARTAN 160 MG TABLET PO SCH (09:05)
[2020-03-25] MEDS: CITALOPRAM HYDROBROMIDE 10 MG TABLET PO SCH (09:06)
[2020-03-25] MEDS: AMOX TR/POT CLAV 875MG/125MG TABLETS (FP) PO SCH ×2 (09:09→17:12)
[2020-03-25] MEDS: AMINO ACIDS/PROTEIN HYDROLYS 30 ML LIQUID.PKT PO SCH ×2 (09:22→17:12)
[2020-03-25] MEDS: ACETAMINOPHEN 325 MG TABLET (FP) PO PRN (11:42)
[2020-03-25 11:54] LABS: HEMATOCRIT 37.3 % (32.4-45.2); HEMOGLOBIN 12.6 GM/dL (10.7-15.3); MCH 30.6 pg (25.7-33.7); MCHC 33.8 g/dl (32.0-36.0); MEAN CELL VOLUME 90.6 fl (80-96); MEAN PLT VOLUME 7.1 fl (7.5-11.1); PLATELET COUNT 385 K/MM3 (134-434); RBC 4.12 M/mm3 (3.60-5.2); RDW 13.1 % (11.6-15.6); WHITE BLOOD COUNT 6.2 K/mm3 (4.0-10.0)
[2020-03-25 12:07] LABS: POTASSIUM 4.2 mmol/L (3.5-5.1)
[2020-03-25 12:09] LABS: ALBUMIN 2.9 g/dl (3.4-5.0); BLOOD UREA NITROGEN 25.3 mg/dL (7-18); CALCIUM 9.1 mg/dL (8.5-10.1)
[2020-03-25 12:13] LABS: CREATININE 0.7 mg/dL (0.55-1.3); PHOSPHOROUS 3.4 mg/dL (2.5-4.9)
[2020-03-25 12:14] LABS: TOT PROT 6.5 g/dl (6.4-8.2)
[2020-03-25 12:48] LABS: ERYTHROCYTE SEDIMENTATION RATE 71 mm/hr (0-30)
[2020-03-25] MEDS: VALPROATE SODIUM 250 MG/5 ML UNIT DOSE CUP PO SCH (17:13)
[2020-03-25] MEDS: QUEtiapine FUMARATE 25 MG TABLET PO SCH (21:19)
[2020-03-25] MEDS: DIVALPROEX SODIUM 125 MG SPRINKLE CAPS PO SCH (21:19)
[2020-03-25] MEDS: ATORVASTATIN CA 20 MG TABLET (FP) PO SCH (21:19)
[2020-03-25] MEDS: ENOXAPARIN NA (PORCINE) 60 MG/0.6 ML DISP.SYRIN SQ SCH (22:52)
[2020-03-26] MEDS: GABAPENTIN 100 MG CAPSULE PO SCH ×3 (06:45→22:08)
[2020-03-26] MEDS: INSULIN SLIDING SCALE (NOVOLOG) 1 VIAL SQ SCH ×3 (07:07→16:25)
[2020-03-26] MEDS: AMOX TR/POT CLAV 875MG/125MG TABLETS (FP) PO SCH ×2 (08:25→17:16)
[2020-03-26] MEDS: AMINO ACIDS/PROTEIN HYDROLYS 30 ML LIQUID.PKT PO SCH ×2 (08:25→17:16)
[2020-03-26 08:38] LABS: HEMATOCRIT 37.2 % (32.4-45.2); HEMOGLOBIN 12.7 GM/dL (10.7-15.3); MCH 30.7 pg (25.7-33.7); MCHC 34.2 g/dl (32.0-36.0); MEAN CELL VOLUME 89.7 fl (80-96); MEAN PLT VOLUME 6.9 fl (7.5-11.1); PLATELET COUNT 393 K/MM3 (134-434); RBC 4.15 M/mm3 (3.60-5.2); WHITE BLOOD COUNT 4.6 K/mm3 (4.0-10.0)
[2020-03-26 09:08] LABS: POTASSIUM 3.8 mmol/L (3.5-5.1)
[2020-03-26] MEDS: ENOXAPARIN NA (PORCINE) 60 MG/0.6 ML DISP.SYRIN SQ SCH ×2 (09:09→22:08)
[2020-03-26] MEDS: clonazePAM 0.5 MG TABLET PO SCH (09:09)
[2020-03-26] MEDS: VALSARTAN 160 MG TABLET PO SCH (09:10)
[2020-03-26] MEDS: ASCORBIC ACID 500 MG TABLET (FP) PO SCH (09:10)
[2020-03-26] MEDS: ZINC SULFATE 220 MG CAPSULE (FP) PO SCH (09:10)
[2020-03-26] MEDS: CITALOPRAM HYDROBROMIDE 10 MG TABLET PO SCH (09:11)
[2020-03-26] MEDS: ASPIRIN COATED 81 MG TABLET.EC PO SCH (09:11)
[2020-03-26] MEDS: METOPROLOL TARTRATE 50 MG TABLET (FP) PO SCH (09:11)
[2020-03-26] MEDS: DIVALPROEX SODIUM 125 MG SPRINKLE CAPS PO SCH ×2 (09:11→22:12)
[2020-03-26] MEDS: CHOLECALCIFEROL (VIT D3) 1,000 UNIT (25 MCG) TABLET PO SCH (09:11)
[2020-03-26 09:15] LABS: ALBUMIN 2.8 g/dl (3.4-5.0); CALCIUM 9.2 mg/dL (8.5-10.1)
[2020-03-26 09:16] LABS: BLOOD UREA NITROGEN 19.4 mg/dL (7-18); MAGNESIUM 2.1 mg/dL (1.8-2.4)
[2020-03-26 09:19] LABS: CREATININE 0.6 mg/dL (0.55-1.3); PHOSPHOROUS 4.2 mg/dL (2.5-4.9)
[2020-03-26 09:20] LABS: TOT PROT 6.3 g/dl (6.4-8.2)
[2020-03-26 11:12] LABS: ERYTHROCYTE SEDIMENTATION RATE 78 mm/hr (0-30)
[2020-03-26] MEDS: ATORVASTATIN CA 20 MG TABLET (FP) PO SCH (22:07)
[2020-03-26] MEDS: QUEtiapine FUMARATE 25 MG TABLET PO SCH (22:08)
[2020-03-26] MEDS: MELATONIN 5 MG TABLETS PO PRN (22:08)
[2020-03-27] MEDS: GABAPENTIN 100 MG CAPSULE PO SCH ×2 (06:49→15:05)
[2020-03-27] MEDS: INSULIN SLIDING SCALE (NOVOLOG) 1 VIAL SQ SCH ×3 (06:50→16:22)
[2020-03-27 07:51] LABS: HEMATOCRIT 34.7 % (32.4-45.2); HEMOGLOBIN 11.9 GM/dL (10.7-15.3); MCH 30.9 pg (25.7-33.7); MCHC 34.2 g/dl (32.0-36.0); MEAN CELL VOLUME 90.4 fl (80-96); PLATELET COUNT 390 K/MM3 (134-434); RBC 3.84 M/mm3 (3.60-5.2); WHITE BLOOD COUNT 5.8 K/mm3 (4.0-10.0)
[2020-03-27 08:13] LABS: POTASSIUM 4.1 mmol/L (3.5-5.1)
[2020-03-27 08:15] LABS: CALCIUM 9.3 mg/dL (8.5-10.1)
[2020-03-27 08:16] LABS: ALBUMIN 2.7 g/dl (3.4-5.0); BLOOD UREA NITROGEN 28.5 mg/dL (7-18); MAGNESIUM 2.2 mg/dL (1.8-2.4)
[2020-03-27 08:19] LABS: PHOSPHOROUS 5.5 mg/dL (2.5-4.9)
[2020-03-27 08:20] LABS: BILIRUBIN,TOTAL 0.9 mg/dL (0.2-1); TOT PROT 5.9 g/dl (6.4-8.2)
[2020-03-27 09:26] LABS: ERYTHROCYTE SEDIMENTATION RATE 44 mm/hr (0-30)
[2020-03-27] MEDS: DIVALPROEX SODIUM 125 MG SPRINKLE CAPS PO SCH (10:17)
[2020-03-27] MEDS: clonazePAM 0.5 MG TABLET PO SCH (10:17)
[2020-03-27] MEDS: METOPROLOL TARTRATE 50 MG TABLET (FP) PO SCH (10:18)
[2020-03-27] MEDS: VALSARTAN 160 MG TABLET PO SCH (10:18)
[2020-03-27] MEDS: ASPIRIN COATED 81 MG TABLET.EC PO SCH (10:18)
[2020-03-27] MEDS: ASCORBIC ACID 500 MG TABLET (FP) PO SCH (10:18)
[2020-03-27] MEDS: ENOXAPARIN NA (PORCINE) 60 MG/0.6 ML DISP.SYRIN SQ SCH (10:18)
[2020-03-27] MEDS: CHOLECALCIFEROL (VIT D3) 1,000 UNIT (25 MCG) TABLET PO SCH (10:18)
[2020-03-27] MEDS: AMINO ACIDS/PROTEIN HYDROLYS 30 ML LIQUID.PKT PO SCH ×2 (10:19→18:53)
[2020-03-27] MEDS: CITALOPRAM HYDROBROMIDE 10 MG TABLET PO SCH (10:19)
[2020-03-27] MEDS: ZINC SULFATE 220 MG CAPSULE (FP) PO SCH (10:19)
[2020-03-27] MEDS: AMOX TR/POT CLAV 875MG/125MG TABLETS (FP) PO SCH ×2 (10:20→18:52)
[2020-03-27 16:24] VITALS: BP 108/53; PULSE 74; TEMP 98.3
== END 2020-03-27 17:49 | disposition home or self-care (01) | DRG 177 ==
LOC: JER 16:20 → JERBED 21:54 → J6WEST-2 03-15 02:01
PROVIDERS: ADMIT Internal Medicine; ATTEND Internal Medicine
PROC: XW033F6 Introduction of Bamlanivimab Monoclonal Antibody into Peripheral Vein, Percutaneous Approach, New Technology Group 6 (ICD-10-PCS; principal; 2020-03-20)
PROC: 8E0ZXY6 Isolation (ICD-10-PCS; 2020-03-20)
DX: U07.1 COVID-19 (principal); I50.31 Acute diastolic (congestive) heart failure; I24.8 Other forms of acute ischemic heart disease; L03.114 Cellulitis of left upper limb; F02.81 Dementia in other diseases classified elsewhere, unspecified severity, with behavioral disturbance; G30.9 Alzheimer's disease, unspecified; E78.5 Hyperlipidemia, unspecified; M54.16 Radiculopathy, lumbar region; I80.8 Phlebitis and thrombophlebitis of other sites; E11.9 Type 2 diabetes mellitus without complications; M54.9 Dorsalgia, unspecified; R79.89 Other specified abnormal findings of blood chemistry; I11.0 Hypertensive heart disease with heart failure; R09.02 Hypoxemia
CPT/HCPCS: 36415; 71045-TC-FY; 80048; 80053; 80164; 82550; 82728; 82803; 82962; 83615; 83735; 83880; 84100; 84484; 85025; 85027; 85379; 85610; 85651; 85730; 86140; 93005; 93010; 93970-TC; 93971; 97116-GP; 97162-GP; 99285-25; C9803; M0239; Q0239; U0003

== ENCOUNTER → 2020-12-30 | Emergency (ER) | payer OTHER | END | disposition E | LOC: JER 10:18 | PROC: 5A02216 Assistance with Cardiac Output using Other Pump, Continuous (ICD-10-PCS; principal; 2020-12-30) | DX: I46.9 Cardiac arrest, cause unspecified (principal) | CPT/HCPCS: 82962; 92950; 99283-25 ==